=== PATIENT | female | born 1970 | race Caucasian/White ===

== ENCOUNTER 2016-05-09 12:59 | Outpatient (CLI) | payer BC ==
[~2016-05-09] VITALS: Ht 175.3 cm; Wt 97.0 kg
[~2016-05-09 12:59] MED LIST: /AMLO25TA; ACET50TAOT PO; ACET65TA; ALBU2TAB; ALBUTEROL INHALATION; ALKA SELTZER PLUS; ALTA5CAP OR; ALTA5CAP3 PO; AMLO5TAB2 PO; AMO500 PO; ATENOLOL50 PO; AZUL500T; B12-1CHW PO; BENA25CA2 PO; BENT20TA PO; BIAXIN500 PO; BIOT50004 PO; CALCTAB93; CARA1TAB2 PO; CEFTIN500 PO; CHLORTHALID PO; CIPR500T89 PO; CIPRO500 PO; DIFL150T PO; EPIPENAD INJECTION; FERR325T; FLAG500T PO; GUAIPOW; HCTZ25 PO; HUMI40KI SC; HUMI40KI2 SC; HUMIRA INJ; HYOS0.378 PO; IBUP80TA PO; IBUPPOW25; IMODIUM; K-TA10TA; LASI40TA PO; LASIX40 PO; LEVA500T PO; LEVA750T; LIALDA PO; LIDO1OIN2 TOP; LOPR50TA; LUNESTA2 PO; METFORM500 PO; METO-207 PO; MICR10CA PO; MIRA33504 PO; MOTRIN600 PO; MULT1CHW21 PO; MULTIVIT; NEBTUBING; NEBUMIS2; NIFE15CA PO; NORV2TAB PO; NORVASC5 PO; OMEP20CA3 PO; OMEP20TA7 PO; PERC5TAB6 PO; PRED10TA PO; PRED10TA2; PRED10TA2 PO; PRED1TA OR; PRED20TA; PRED20TA PO; PRIL20CA; PROBCAP14 PO; PROT1TAB2 PO; PROV90AE; RAMI5CA PO; RELPAX PO; SKELAXIN40 PO; SKELAXIN8 PO; THERGRAN; TOPR50TA PO; TOPROLXL50 PO; TUSSIONEX PO; TYL325 PO; TYLE325T5 PO; TYLE500T53; ULTR50TA PO; VITA-193 PO; VITA200016 PO; VITA50003 PO; VITAMIN C; VITAMIN D; VITAMIN D50000 UNT; VITMTA PO; WELLTAB40 PO; XOPENEX63 NEB; ZANT300T PO; ZESTRIL20 PO; ZITHROZPAK PO; ZOFR20TA PO; ZOMIG2.5 PO; humira; levsin; lialda; mesalamine; pred; prednisone PO
[2016-05-09] MEDS ORDERED: VEDOLIZUMAB 300 MG in NS 250 ML IV ONE (13:00)
== END 2016-05-09 14:20 | disposition home or self-care (01) ==
LOC: M INFU 12:59
PROVIDERS: ATTEND Internal Medicine Gastroenterology
DX: K50.90 Crohn's disease, unspecified, without complications (principal)
CPT/HCPCS: 96413; J3380

== ENCOUNTER → 2016-05-16 | Outpatient (REF) | payer BC | END | disposition home or self-care (01) | LOC: M LAB REF 12:24 | PROVIDERS: ATTEND Physician Assistant Medical | DX: A04.7 Enterocolitis due to Clostridium difficile (principal) ==

== ENCOUNTER → 2016-05-16 | Outpatient (REF) | payer BC ==
[2016-05-16 12:40] LABS: ANION GAP 9 MEQ/L (8-16); BLOOD UREA NITROGEN 13 MG/DL (7-18); CALCIUM LEVEL 8.8 MG/DL (8.5-10.1); CARBON DIOXIDE LEVEL 25 MEQ/L (21-32); CHLORIDE LEVEL 108 MEQ/L (98-107); CREATININE FOR GFR 0.83 MG/DL (0.55-1.02); FREE T4 0.87 NG/DL (0.76-1.46); GLOMERULAR FILTRATION RATE > 60.0 (>58); GLUCOSE, FASTING 81 MG/DL (70-105); MAGNESIUM LEVEL 2.4 MG/DL (1.8-2.4); POTASSIUM SERUM 4.5 MEQ/L (3.5-5.1); SODIUM LEVEL 142 MEQ/L (136-145)
[2016-05-16 12:41] LABS: FOLATE > 24.0 NG/ML; VITAMIN B12 LEVEL 1545 PG/ML
== END | disposition home or self-care (01) ==
LOC: M SFHCPLAZ 09:07
PROVIDERS: ATTEND Nurse Practitioner Family
DX: F32.9 Major depressive disorder, single episode, unspecified (principal); I10 Essential (primary) hypertension; E55.9 Vitamin D deficiency, unspecified; K21.9 Gastro-esophageal reflux disease without esophagitis

== ENCOUNTER → 2016-05-21 | Outpatient (CLI) | payer BC ==
[2016-05-21 13:29] LABS: BASO # 0.1 K/mm3 (0.0-0.2); BASO % 0.9 % (0.0-1.0); EOS # 0.2 K/mm3 (0.0-0.50); EOS % 2.9 % (0.0-3.0); LARGE UNSTAINED CELL # 0.2 K/mm3 (0.0-0.4); LARGE UNSTAINED CELL % 2.5 % (0.0-4.0); LYMPH # 1.4 K/mm3 (1.5-4.5); MEAN CORPUSCULAR HEMOGLOBIN 22.3 pg (27.0-33.0); MEAN CORPUSCULAR HGB CONC 31.1 g/dl (32.0-36.5); MEAN CORPUSCULAR VOLUME 71.6 fl (80.0-96.0); MONO # 0.4 K/mm3 (0.0-0.8); MONO % 5.1 % (0.0-5.0); NEUTROPHILS # 5.2 K/mm3 (1.8-7.7); NEUTROPHILS % 69.7 % (36.0-66.0); PLATELET COUNT, AUTOMATED 335 k/mm3 (150-450); RED CELL DISTRIBUTION WIDTH 15.1 % (11.5-14.5); WHITE BLOOD COUNT 7.4 K/mm3 (4.0-10.0)
== END | disposition home or self-care (01) ==
LOC: M LAB 12:18
PROVIDERS: ATTEND Physician Assistant Medical
DX: D64.9 Anemia, unspecified (principal)

== ENCOUNTER → 2016-05-23 | Outpatient (CLI) | payer BC ==
[~2016-05-23] VITALS: Ht 175.3 cm; Wt 108.9 kg
[~2016-05-23] MED LIST changes: +FECAL MICROBIOTA PREPARATION 30 ML BTL (J3590) XX ONE; +LIDOCAINE 2% INJ 100 MG/5 ML SDV (FOR ANES.) As Ordered ONE; +PROPOFOL 200 MG/20 ML VIAL As Ordered ONE
--- NOTE | 2016-05-23 16:13 | ROOR ---
Patient Name: Padmini Melendrez Procedure Date: 05/23/2016 3:33 PM Date of : 1970 Age: 45 Room: [facility] Gender: Female Note Status: Finalized Procedure: Upper GI endoscopy Indications: Heartburn, inflammatory bowel disease with colonic stricturing on Biologic therapy- She has C difficile colitis. Failed Flagyl and vancomycin. dificid not covered. Pt for stool transplant/CDAD via duodenum Providers: Shane MCELROY MD Referring MD: Temi Angel NP Requesting Provider: Medicines: Monitored Anesthesia Care Complications: No immediate complications. Procedure: Pre-Anesthesia Assessment: - The heart rate, respiratory rate, oxygen saturations, blood pressure, adequacy of pulmonary ventilation, and response to care were monitored throughout the procedure. The Endoscope was introduced through the mouth, and advanced to the third part of duodenum. The upper GI endoscopy was accomplished without difficulty. The patient tolerated the procedure well. Findings: The examined esophagus was normal. A medium-sized hiatal hernia was present. The entire examined stomach was normal. The examined duodenum was normal. Successful Stool Transplantation performed. Impression: - Normal esophagus. - Medium-sized hiatal hernia. - Normal stomach. - Normal examined duodenum. - No specimens collected. - Successful Stool Transplantation performed into second/third portion of duodenum. Recommendation: - Stop/do NOT restart any antibiotics you were on for C difficile colitis. Avoid use of any future antibiotics if at all possible. If need for antibiotic therapy arises in the future, please notify your primary care physician for review/discussion. - Return to my office in 1 month. Shane Mcelroy MD Shane MCELROY MD 05/23/2016 4:13:21 PM This report has been signed electronically. Number of Addenda: 0 Note Initiated On: 05/23/2016 3:33 PM Estimated Blood Loss: Estimated blood loss: none.
[2016-05-23 16:45] VITALS: BP 116/71
== END ==
LOC: M OPP 13:10
PROVIDERS: ATTEND Internal Medicine Gastroenterology
DX: R12 Heartburn (principal); K51.90 Ulcerative colitis, unspecified, without complications; A04.7 Enterocolitis due to Clostridium difficile; K44.9 Diaphragmatic hernia without obstruction or gangrene; I10 Essential (primary) hypertension; G93.0 Cerebral cysts; Z79.899 Other long term (current) drug therapy; Z88.0 Allergy status to penicillin; Z88.1 Allergy status to other antibiotic agents; Z88.5 Allergy status to narcotic agent; Z91.030 Bee allergy status; Z91.018 Allergy to other foods

== ENCOUNTER 2016-06-06 13:44 | Outpatient (CLI) | payer BC ==
[~2016-06-06] VITALS: Ht 175.3 cm; Wt 104.7 kg
[~2016-06-06 13:44] MED LIST changes: -FECAL MICROBIOTA PREPARATION 30 ML BTL (J3590) XX ONE; -LIDOCAINE 2% INJ 100 MG/5 ML SDV (FOR ANES.) As Ordered ONE; -PROPOFOL 200 MG/20 ML VIAL As Ordered ONE; +VEDOLIZUMAB 300 MG in NS 250 ML IV ONE
== END 2016-06-06 14:45 | disposition home or self-care (01) ==
LOC: M INFU 13:44
PROVIDERS: ATTEND Internal Medicine Gastroenterology
DX: K50.90 Crohn's disease, unspecified, without complications (principal)
CPT/HCPCS: 96413; J3380

== ENCOUNTER → 2016-06-11 | Outpatient (CLI) | payer BC ==
[~2016-06-11] MED LIST changes: -VEDOLIZUMAB 300 MG in NS 250 ML IV ONE
== END ==
LOC: M LAB 10:50
PROVIDERS: ATTEND Physician Assistant Medical
DX: R19.7 Diarrhea, unspecified (principal)

== ENCOUNTER → 2016-07-04 | Outpatient (CLI) | payer BC ==
[~2016-07-04] VITALS: Ht 175.3 cm; Wt 111.1 kg
[~2016-07-04] MED LIST changes: +ENTY1INJ IV; +PROPOFOL 200 MG/20 ML VIAL As Ordered ONE
[2016-07-04] MEDS: NS 1,000 ML IV SCH (09:35)
[2016-07-04 11:10] VITALS: BP 143/93
--- NOTE | 2016-07-04 11:21 | ROOR ---
Patient Name: Padmini Melendrez Procedure Date: 07/04/2016 10:29 AM Date of : 1970 Age: 45 Room: [facility] Gender: Female Note Status: Finalized Procedure: Colonoscopy Indications: Suspected Crohn's disease of the colon, Disease activity assessment of Crohn's disease of the colon, Assess therapeutic response to therapy of Crohn's disease of the colon. (previously thought to have Ulcerative colitis. recent development of strictures in colon prompted change in diagnosis to crohns disease and change from remicade to entyvio- procedure done to assess results of this change) Providers: Shane MCELROY MD Referring MD: Temi Angel NP Requesting Provider: Medicines: Monitored Anesthesia Care Complications: No immediate complications. Procedure: Pre-Anesthesia Assessment: - The heart rate, respiratory rate, oxygen saturations, blood pressure, adequacy of pulmonary ventilation, and response to care were monitored throughout the procedure. The Colonoscope was introduced through the anus with the intention of advancing to the cecum. The scope was advanced to the descending colon before the procedure was aborted. Medications were given. The colonoscopy was performed with difficulty due to bowel stenosis. The patient tolerated the procedure well. The quality of the bowel preparation was good. Findings: The perianal and digital rectal examinations were normal. A severe stenosis was found in the sigmoid colon and in the distal descending colon. Biopsies were taken with a cold forceps for histology. Scattered pseudopolyps were found in the sigmoid colon. Inflammation was found as medium patches surrounded by normal mucosa in the rectum, in the sigmoid colon and in the descending colon. When compared to previous examinations, the findings are improved. Biopsies were taken with a cold forceps for histology. Impression: - INCOMPLETE colonoscopy to descending colon--at 70 cm. due to severe stricture. Unable to pass. - Two strictures in sigmoid colon and in the distal descending colon- I am able to pass the sigmoid stenoses, these appear IMPROVED. however the stricture in the descending colon is too tight to pass. Biopsied. - Patchy Inflammation and pseudopolyps are found in the rectum, in the sigmoid colon and in the descending colon. The findings are improved compared to previous examinations. Biopsied. (- Unlike previous exams years ago, the inflammation is patchy and surrounded by apparent normal mucosa. On this exam the visual is more consistent with Crohn's disease.) Recommendation: - Continue present medications. (Entyvio) - Repeat colonoscopy at appointment to be scheduled for surveillance. - Return to GI office in 2 months. Shane Mcelroy MD Shane MCELROY MD 07/04/2016 11:21:05 AM This report has been signed electronically. Number of Addenda: 0 Note Initiated On: 07/04/2016 10:29 AM Estimated Blood Loss: Estimated blood loss: none.
== END ==
LOC: M OPP 09:13
PROVIDERS: ATTEND Internal Medicine Gastroenterology
DX: K50.112 Crohn's disease of large intestine with intestinal obstruction (principal); I10 Essential (primary) hypertension; Z86.19 Personal history of other infectious and parasitic diseases; Z79.899 Other long term (current) drug therapy; Z88.0 Allergy status to penicillin; Z91.030 Bee allergy status; Z88.5 Allergy status to narcotic agent; Z91.02 Food additives allergy status

== ENCOUNTER 2016-08-01 12:54 | Outpatient (CLI) | payer BC ==
[~2016-08-01] VITALS: Ht 175.3 cm; Wt 97.0 kg
[~2016-08-01 12:54] MED LIST changes: -PROPOFOL 200 MG/20 ML VIAL As Ordered ONE
[2016-08-01] MEDS ORDERED: VEDOLIZUMAB 300 MG in NS 250 ML IV ONE (14:00)
== END 2016-08-01 15:10 | disposition home or self-care (01) ==
LOC: M INFU 12:54
PROVIDERS: ATTEND Internal Medicine Gastroenterology
DX: K50.90 Crohn's disease, unspecified, without complications (principal)
CPT/HCPCS: 96413; J3380

== ENCOUNTER → 2016-08-09 | Outpatient (CLI) | payer BC ==
[~2016-08-09] VITALS: Ht 175.3 cm; Wt 114.3 kg
[~2016-08-09] MED LIST changes: +FECAL MICROBIOTA PREPARATION 250 ML BTL (J3590) XX ONE; +LIDOCAINE 2% INJ 100 MG/5 ML SDV (FOR ANES.) As Ordered ONE; +NS 1,000 ML IV SCH; +PROPOFOL 200 MG/20 ML VIAL As Ordered ONE
--- NOTE | 2016-08-09 16:49 | ROOR ---
Patient Name: Padmini Melendrez Procedure Date: 08/09/2016 4:29 PM Date of : 1970 Age: 45 Room: [facility] Gender: Female Note Status: Finalized Procedure: Upper GI endoscopy Indications: Therapeutic procedure, Diarrhea, recurrent Clostridium difficile colitis in pt with crohns disease with colonic strictures. failed previous antibiotic therapy for eradication, resolved after previous stool transplant 04/2016. recurrent symptoms for past 2 weeks. retesting showed positive clostridium difficile per PCR. Providers: Shane MCELROY MD Referring MD: Bennett Terry MD Requesting Provider: Medicines: Monitored Anesthesia Care Complications: No immediate complications. Procedure: Pre-Anesthesia Assessment: - The heart rate, respiratory rate, oxygen saturations, blood pressure, adequacy of pulmonary ventilation, and response to care were monitored throughout the procedure. The Endoscope was introduced through the mouth, and advanced to the fourth part of duodenum. The upper GI endoscopy was accomplished without difficulty. The patient tolerated the procedure well. Findings: The esophagus was normal. The stomach was normal. The examined duodenum was normal. An area in the fourth portion of the duodenum was successfully injected with Fecal Transplant Material. Impression: - Normal esophagus. - Normal stomach. - Normal examined duodenum. - An area at 4th portion of the duodenum successfully injected with stool transplant material. - No specimens collected. Recommendation: - Stop/do NOT restart any antibiotics you were on for C difficile colitis. Avoid use of any future antibiotics if at all possible. If need for antibiotic therapy arises in the future, please notify your primary care physician for review/discussion. - Return to my office in 1 month. Shane Mcelroy MD Shane MCELROY MD 08/09/2016 4:49:21 PM This report has been signed electronically. Number of Addenda: 0 Note Initiated On: 08/09/2016 4:29 PM Estimated Blood Loss: Estimated blood loss: none.
[2016-08-09 17:01] VITALS: BP 113/79
== END ==
LOC: M OPP 14:07
PROVIDERS: ATTEND Internal Medicine Gastroenterology
DX: A04.7 Enterocolitis due to Clostridium difficile (principal); Z86.19 Personal history of other infectious and parasitic diseases; K50.10 Crohn's disease of large intestine without complications; I10 Essential (primary) hypertension; K21.9 Gastro-esophageal reflux disease without esophagitis; D64.9 Anemia, unspecified; F32.9 Major depressive disorder, single episode, unspecified; Z91.030 Bee allergy status; Z91.02 Food additives allergy status; G43.909 Migraine, unspecified, not intractable, without status migrainosus; G93.0 Cerebral cysts; E66.9 Obesity, unspecified; Z79.899 Other long term (current) drug therapy; Z88.0 Allergy status to penicillin; Z88.5 Allergy status to narcotic agent; Z88.6 Allergy status to analgesic agent

== ENCOUNTER 2016-09-26 09:22 | Outpatient (CLI) | payer BC ==
[2016-09-26] MEDS ORDERED: VEDOLIZUMAB 300 MG in NS 250 ML IV ONE (10:00)
[2016-10-09] MEDS ORDERED: VITA200016 PO (18:08)
[2016-10-10] MEDS ORDERED: TRAZ50TA4 PO (14:57)
== END 2016-09-26 10:30 | disposition home or self-care (01) ==
LOC: M INFU 09:22
PROVIDERS: ATTEND Internal Medicine Gastroenterology
DX: K50.112 Crohn's disease of large intestine with intestinal obstruction (principal); A04.7 Enterocolitis due to Clostridium difficile; Z79.899 Other long term (current) drug therapy; I10 Essential (primary) hypertension; Z88.0 Allergy status to penicillin; Z88.1 Allergy status to other antibiotic agents; Z88.5 Allergy status to narcotic agent; Z91.018 Allergy to other foods
CPT/HCPCS: 96413; J3380

== ENCOUNTER → 2016-09-26 | Outpatient (CLI) | payer BC ==
[~2016-09-26] MED LIST changes: -FECAL MICROBIOTA PREPARATION 250 ML BTL (J3590) XX ONE; -LIDOCAINE 2% INJ 100 MG/5 ML SDV (FOR ANES.) As Ordered ONE; -NS 1,000 ML IV SCH; -PROPOFOL 200 MG/20 ML VIAL As Ordered ONE
[2016-09-26 12:18] LABS: ALBUMIN 3.1 GM/DL (3.2-5.2); ALBUMIN/GLOBULIN RATIO 0.86 (1.00-1.93); ALKALINE PHOSPHATASE 57 U/L (45-117); ALT/SGPT 12 U/L (12-78); ANION GAP 5 MEQ/L (8-16); AST/SGOT 7 U/L (15-37); BILIRUBIN,TOTAL 0.7 MG/DL (0.2-1.0); BLOOD UREA NITROGEN 10 MG/DL (7-18); CALCIUM LEVEL 8.9 MG/DL (8.5-10.1); CARBON DIOXIDE LEVEL 30 MEQ/L (21-32); CHLORIDE LEVEL 105 MEQ/L (98-107); CREATININE FOR GFR 0.76 MG/DL (0.55-1.02); GLOMERULAR FILTRATION RATE > 60.0 (>58); GLUCOSE, FASTING 89 MG/DL (70-105); POTASSIUM SERUM 4.3 MEQ/L (3.5-5.1); SODIUM LEVEL 140 MEQ/L (136-145); TOTAL PROTEIN 6.7 GM/DL (6.4-8.2)
== END ==
LOC: M LAB 10:40
PROVIDERS: ATTEND Nurse Practitioner Family
DX: I10 Essential (primary) hypertension (principal)

== ENCOUNTER → 2016-09-26 | Outpatient (REF) | payer BC | LOC: M LAB REF 15:44 | PROVIDERS: ATTEND Internal Medicine Gastroenterology | DX: A04.7 Enterocolitis due to Clostridium difficile (principal); K50.112 Crohn's disease of large intestine with intestinal obstruction ==

== ENCOUNTER → 2016-10-10 | Outpatient (CLI) | payer BC ==
[~2016-10-10] VITALS: Ht 175.3 cm; Wt 113.4 kg
[~2016-10-10] MED LIST changes: +FECAL MICROBIOTA PREPARATION 30 ML BTL (J3590) XX ONE; +LIDOCAINE 2% INJ 100 MG/5 ML SDV (FOR ANES.) As Ordered ONE; +NS 1,000 ML IV ONE; +PROPOFOL 200 MG/20 ML VIAL As Ordered ONE; +TRAZ50TA4 PO; +fentaNYL 100 MCG/2 ML INJECTION (J3010) As Ordered ONE
--- NOTE | 2016-10-10 16:07 | ROOR ---
Patient Name: Padmini Melendrez Procedure Date: 10/10/2016 3:45 PM Date of : 1970 Age: 46 Room: [facility] Gender: Female Note Status: Finalized Procedure: Upper GI endoscopy Indications: Therapeutic procedure, Heartburn, for stool transplant- recurrent Clostridium difficile colitis Providers: Shane MCELROY MD Referring MD: Temi Angel NP Requesting Provider: Medicines: Monitored Anesthesia Care Complications: No immediate complications. Procedure: Pre-Anesthesia Assessment: - The heart rate, respiratory rate, oxygen saturations, blood pressure, adequacy of pulmonary ventilation, and response to care were monitored throughout the procedure. The Endoscope was introduced through the mouth, and advanced to the second part of duodenum. The upper GI endoscopy was accomplished without difficulty. The patient tolerated the procedure well. Findings: The esophagus was normal. The stomach was normal. The examined duodenum was normal. 30 ml FMT material was instilled into distal second portion of duodenum. Impression: - Normal esophagus. - Normal stomach. - Normal examined duodenum. -30 ml FMT/stool transplant material was instilled into distal second portion of duodenum. - No specimens collected. Recommendation: - Observe patient's clinical course. Shane Mcelroy MD Shane MCELROY MD 10/10/2016 4:07:07 PM This report has been signed electronically. Number of Addenda: 0 Note Initiated On: 10/10/2016 3:45 PM Estimated Blood Loss: Estimated blood loss: none.
[2016-10-10 16:23] VITALS: BP 110/65
== END ==
LOC: M OPP 13:21
PROVIDERS: ATTEND Internal Medicine Gastroenterology
DX: R12 Heartburn (principal); A04.7 Enterocolitis due to Clostridium difficile; I10 Essential (primary) hypertension; K50.90 Crohn's disease, unspecified, without complications; K44.0 Diaphragmatic hernia with obstruction, without gangrene; D64.9 Anemia, unspecified; Z88.0 Allergy status to penicillin; Z88.6 Allergy status to analgesic agent; Z88.8 Allergy status to other drugs, medicaments and biological substances; Z91.030 Bee allergy status; Z79.899 Other long term (current) drug therapy
CPT/HCPCS: 43235; J3010

== ENCOUNTER → 2016-11-04 | Outpatient (REF) | payer BC ==
[~2016-11-04] MED LIST changes: +ALTA1CAP3 PO; -ALTA5CAP3 PO; -CARA1TAB2 PO; +CARA1TAB6 PO; +CIPR-249 PO; -CIPR500T89 PO; -FECAL MICROBIOTA PREPARATION 30 ML BTL (J3590) XX ONE; +LEVA1TAB2 PO; -LEVA500T PO; -LIDOCAINE 2% INJ 100 MG/5 ML SDV (FOR ANES.) As Ordered ONE; -METO-207 PO; +METO1TAB7 PO; -NS 1,000 ML IV ONE; +PERC5TAB12 PO; -PERC5TAB6 PO; -PROPOFOL 200 MG/20 ML VIAL As Ordered ONE; +TRAZ50TA11 PO; -TRAZ50TA4 PO; -ULTR50TA PO; +ULTR50TA8 PO; +VITA1CAP40 PO; -VITA50003 PO; -fentaNYL 100 MCG/2 ML INJECTION (J3010) As Ordered ONE
== END ==
LOC: M LAB REF 15:19
PROVIDERS: ATTEND Physician Assistant Medical
DX: R19.7 Diarrhea, unspecified (principal)

== ENCOUNTER → 2016-11-14 | Outpatient (REF) | payer BC ==
[2016-11-14 18:05] LABS: BASO # 0.1 K/mm3 (0.0-0.2); BASO % 0.8 % (0.0-1.0); EOS # 0.4 K/mm3 (0.0-0.50); EOS % 3.5 % (0.0-3.0); LARGE UNSTAINED CELL # 0.2 K/mm3 (0.0-0.4); LYMPH # 2.1 K/mm3 (1.5-4.5); LYMPH % 17.6 % (24.0-44.0); MEAN CORPUSCULAR HEMOGLOBIN 23.2 pg (27.0-33.0); MEAN CORPUSCULAR HGB CONC 31.1 g/dl (32.0-36.5); MEAN CORPUSCULAR VOLUME 74.7 fl (80.0-96.0); MONO # 0.7 K/mm3 (0.0-0.8); MONO % 6.4 % (0.0-5.0); NEUTROPHILS # 7.4 K/mm3 (1.8-7.7); NEUTROPHILS % 69.8 % (36.0-66.0); PLATELET COUNT, AUTOMATED 450 k/mm3 (150-450); RED CELL DISTRIBUTION WIDTH 15.8 % (11.5-14.5); WHITE BLOOD COUNT 10.6 K/mm3 (4.0-10.0)
[2016-11-14 18:18] LABS: ALBUMIN 3.3 GM/DL (3.2-5.2); ALBUMIN/GLOBULIN RATIO 0.77 (1.00-1.93); ALKALINE PHOSPHATASE 61 U/L (45-117); ALT/SGPT 16 U/L (12-78); ANION GAP 6 MEQ/L (8-16); AST/SGOT 5 U/L (15-37); BILIRUBIN,TOTAL 0.6 MG/DL (0.2-1.0); BLOOD UREA NITROGEN 11 MG/DL (7-18); CARBON DIOXIDE LEVEL 27 MEQ/L (21-32); CHLORIDE LEVEL 106 MEQ/L (98-107); CREATININE FOR GFR 0.82 MG/DL (0.55-1.02); GLOMERULAR FILTRATION RATE > 60.0 (>58); GLUCOSE, FASTING 80 MG/DL (70-105); POTASSIUM SERUM 4.5 MEQ/L (3.5-5.1); SODIUM LEVEL 139 MEQ/L (136-145); TOTAL PROTEIN 7.6 GM/DL (6.4-8.2)
[2016-11-14 18:45] LABS: ERYTHROCYTE SEDIMENTATION RATE 57 mm/hr (0-20)
== END ==
LOC: M SFHCPLAZ 12:45
PROVIDERS: ATTEND Internal Medicine Infectious Disease
DX: A04.7 Enterocolitis due to Clostridium difficile (principal); M25.50 Pain in unspecified joint

== ENCOUNTER 2016-11-22 15:07 | Outpatient (CLI) | payer BC ==
[~2016-11-22] VITALS: Ht 177.8 cm; Wt 97.0 kg
[2016-11-22] MEDS ORDERED: VEDOLIZUMAB 300 MG in NS 250 ML IV ONE (15:15)
== END 2016-11-22 16:30 | disposition home or self-care (01) ==
LOC: M INFU 15:07
PROVIDERS: ATTEND Internal Medicine Gastroenterology
DX: K50.00 Crohn's disease of small intestine without complications (principal); D64.9 Anemia, unspecified; I10 Essential (primary) hypertension; E78.00 Pure hypercholesterolemia, unspecified; M54.2 Cervicalgia; Z79.899 Other long term (current) drug therapy; Z88.1 Allergy status to other antibiotic agents; Z91.018 Allergy to other foods; Z91.030 Bee allergy status
CPT/HCPCS: 96413; J3380

== ENCOUNTER → 2017-01-06 | Outpatient (REF) | payer BC | LOC: M SFHCPLAZ 11:21 | PROVIDERS: ATTEND Internal Medicine Infectious Disease | DX: A04.7 Enterocolitis due to Clostridium difficile (principal) ==

== ENCOUNTER 2017-01-16 14:41 | Outpatient (CLI) | payer BC ==
[~2017-01-16] VITALS: Ht 175.3 cm; Wt 97.0 kg
[2017-01-16] MEDS ORDERED: VEDOLIZUMAB 300 MG in NS 250 ML IV ONE (15:00)
== END 2017-01-16 15:40 | disposition home or self-care (01) ==
LOC: M INFU 14:41
PROVIDERS: ATTEND Internal Medicine Gastroenterology
DX: K50.00 Crohn's disease of small intestine without complications (principal); I10 Essential (primary) hypertension; E78.00 Pure hypercholesterolemia, unspecified; I49.9 Cardiac arrhythmia, unspecified; D64.9 Anemia, unspecified; Z86.79 Personal history of other diseases of the circulatory system; Z86.59 Personal history of other mental and behavioral disorders; Z91.030 Bee allergy status; Z88.0 Allergy status to penicillin; Z91.010 Allergy to peanuts; Z79.899 Other long term (current) drug therapy
CPT/HCPCS: 96413; J3380

== ENCOUNTER → 2017-02-06 | Outpatient (REF) | payer BC ==
[2017-02-06 18:56] LABS: WHITE BLOOD COUNT 8.8 10^3/uL (4.0-10.0)
[2017-02-06 18:57] LABS: BASO # 0.1 10^3/uL (0.0-0.2); EOS # 0.4 10^3/uL (0.0-0.50); EOS % 4.1 % (0.0-3.0); IMMATURE GRANULOCYTE % 0.6 % (0-0); LYMPH # 1.8 10^3/uL (1.5-4.5); LYMPH % 20.4 % (24.0-44.0); MEAN CORPUSCULAR HEMOGLOBIN 22.8 pg (27.0-33.0); MEAN CORPUSCULAR HGB CONC 30.1 g/dl (32.0-36.5); MEAN CORPUSCULAR VOLUME 75.8 fl (80.0-96.0); MONO # 0.8 10^3/uL (0.0-0.8); MONO % 8.5 % (0.0-5.0); NEUTROPHILS # 5.8 10^3/uL (1.8-7.7); NEUTROPHILS % 65.4 % (36.0-66.0); PLATELET COUNT, AUTOMATED 360 10^3/uL (150-450); RED CELL DISTRIBUTION WIDTH 16.6 % (11.5-14.5)
[2017-02-06 20:36] LABS: FREE T4 0.89 NG/DL (0.76-1.46)
== END ==
LOC: M SFHCPLAZ 15:40
PROVIDERS: ATTEND Nurse Practitioner Family
DX: R63.5 Abnormal weight gain (principal); E55.9 Vitamin D deficiency, unspecified; K05.10 Chronic gingivitis, plaque induced

== ENCOUNTER 2017-03-19 14:07 | Outpatient (CLI) | payer BC ==
[~2017-03-19] VITALS: Ht 175.3 cm; Wt 97.0 kg
[~2017-03-19 14:07] MED LIST changes: +VEDOLIZUMAB 300 MG in NS 250 ML IV ONE
== END 2017-03-19 15:05 | disposition home or self-care (01) ==
LOC: M INFU 14:07
PROVIDERS: ATTEND Internal Medicine Gastroenterology
DX: K50.90 Crohn's disease, unspecified, without complications (principal); Z88.0 Allergy status to penicillin; Z91.018 Allergy to other foods; Z91.030 Bee allergy status; Z88.5 Allergy status to narcotic agent; Z88.3 Allergy status to other anti-infective agents; Z79.899 Other long term (current) drug therapy
CPT/HCPCS: 96413; J3380

== ENCOUNTER 2017-04-22 13:11 | Emergency (ER) | payer BC ==
[2017-04-22 15:37] LABS: BASO # 0.1 10^3/uL (0.0-0.2); BASO % 0.3 % (0.0-1.0); EOS # 0.1 10^3/uL (0.0-0.50); EOS % 0.6 % (0.0-3.0); IMMATURE GRANULOCYTE # 0.1 10^3/uL (0-0); IMMATURE GRANULOCYTE % 0.4 % (0-0); LYMPH % 4.8 % (24.0-44.0); MEAN CORPUSCULAR HEMOGLOBIN 23.9 pg (27.0-33.0); MEAN CORPUSCULAR VOLUME 77.1 fl (80.0-96.0); MONO # 1.2 10^3/uL (0.0-0.8); MONO % 5.8 % (0.0-5.0); NEUTROPHILS # 18.5 10^3/uL (1.8-7.7); NEUTROPHILS % 88.1 % (36.0-66.0); PLATELET COUNT, AUTOMATED 323 10^3/uL (150-450); RED CELL DISTRIBUTION WIDTH 16.4 % (11.5-14.5)
[2017-04-22 15:43] LABS: KETONE, URINE AUTO RFX NEGATIVE (NEGATIVE); LEUKOCYTE ESTERASE UR AUTO RFX NEGATIVE (NEGATIVE); MUCUS, URINE RFX SMALL (NEGATIVE); NITRITE, URINE AUTO RFX NEGATIVE (NEGATIVE); RBC, URINE AUTO RFX 3 /HPF (0-3); SPECIFIC GRAVITY UR AUTO RFX 1.019 (1.002-1.035); SQUAM EPITHELIAL CELL UR AURFX 1 /HPF (0-6); WBC, URINE AUTO RFX 2 /HPF (0-3)
[2017-04-22 16:03] LABS: ALBUMIN 3.6 GM/DL (3.2-5.2); ALBUMIN/GLOBULIN RATIO 0.95 (1.00-1.93); ALKALINE PHOSPHATASE 69 U/L (45-117); ALT/SGPT 15 U/L (12-78); AMYLASE 26 U/L (25-115); ANION GAP 7 MEQ/L (8-16); AST/SGOT 17 U/L (7-37); BILIRUBIN,DIRECT 0.2 MG/DL (0.0-0.2); BILIRUBIN,TOTAL 0.9 MG/DL (0.2-1.0); BLOOD UREA NITROGEN 11 MG/DL (7-18); CALCIUM LEVEL 8.6 MG/DL (8.5-10.1); CARBON DIOXIDE LEVEL 29 MEQ/L (21-32); CHLORIDE LEVEL 104 MEQ/L (98-107); CREATININE FOR GFR 0.72 MG/DL (0.55-1.02); GLOMERULAR FILTRATION RATE > 60.0 (>58); GLUCOSE, FASTING 104 MG/DL (70-105); SODIUM LEVEL 140 MEQ/L (136-145); TOTAL PROTEIN 7.4 GM/DL (6.4-8.2)
[2017-04-22] MEDS ORDERED: ISOVUE-370 76% 100ML VIAL (Q9967) As Ordered (16:09)
[2017-04-22] MEDS: ONDANSETRON 4MG/2ML VIAL (J2405) IV (16:16)
[2017-04-22] MEDS: MORPHINE 2 MG/ML 1ML SYRINGE IV (16:17)
[2017-04-22 16:51] LABS: LACTIC ACID SEPSIS PROTOCOL 1.2 MMOL/L (0.4-2.0)
[2017-04-22] MEDS: CIPROFLOXACIN 400 MG in APPROPRIATE DILUENT 1 EA IV (17:42)
[2017-04-22] MEDS: metroNIDAZOLE 750 MG in APPROPRIATE DILUENT 1 EA IV (18:48)
== END 2017-04-22 19:42 | disposition home or self-care (01) ==
LOC: M ED 13:11
DX: R10.9 Unspecified abdominal pain (principal); K52.9 Noninfective gastroenteritis and colitis, unspecified; K50.90 Crohn's disease, unspecified, without complications; Z79.51 Long term (current) use of inhaled steroids; Z79.899 Other long term (current) drug therapy; Z88.0 Allergy status to penicillin; Z88.8 Allergy status to other drugs, medicaments and biological substances; Z91.02 Food additives allergy status; Z91.030 Bee allergy status; E73.9 Lactose intolerance, unspecified; Z87.19 Personal history of other diseases of the digestive system; Z87.42 Personal history of other diseases of the female genital tract; Z82.49 Family history of ischemic heart disease and other diseases of the circulatory system; Z83.3 Family history of diabetes mellitus; Z80.1 Family history of malignant neoplasm of trachea, bronchus and lung
CPT/HCPCS: J2405

== ENCOUNTER → 2017-05-15 | Outpatient (CLI) | payer BC ==
[~2017-05-15] MED LIST changes: -/AMLO25TA; -ACET50TAOT PO; -ACET65TA; -ALBU2TAB; -ALBUTEROL INHALATION; -ALKA SELTZER PLUS; -ALTA1CAP3 PO; -ALTA5CAP OR; -AMLO5TAB2 PO; -AMO500 PO; -ATENOLOL50 PO; -AZUL500T; -B12-1CHW PO; -BENA25CA2 PO; -BENT20TA PO; -BIAXIN500 PO; -BIOT50004 PO; -CALCTAB93; -CARA1TAB6 PO; -CEFTIN500 PO; -CHLORTHALID PO; -CIPR-249 PO; -CIPRO500 PO; -DIFL150T PO; -ENTY1INJ IV; -EPIPENAD INJECTION; -FERR325T; -FLAG500T PO; +GLUCAGON FOR INJ 1 MG VIAL (J1610) As Ordered; -GUAIPOW; -HCTZ25 PO; -HUMI40KI SC; -HUMI40KI2 SC; -HUMIRA INJ; -HYOS0.378 PO; -IBUP80TA PO; -IBUPPOW25; -IMODIUM; +ISOVUE-370 76% 100ML VIAL (Q9967) As Ordered; -K-TA10TA; -LASI40TA PO; -LASIX40 PO; -LEVA1TAB2 PO; -LEVA750T; -LIALDA PO; -LIDO1OIN2 TOP; -LOPR50TA; -LUNESTA2 PO; -METFORM500 PO; -METO1TAB7 PO; -MICR10CA PO; -MIRA33504 PO; -MOTRIN600 PO; -MULT1CHW21 PO; -MULTIVIT; -NEBTUBING; -NEBUMIS2; -NIFE15CA PO; -NORV2TAB PO; -NORVASC5 PO; -OMEP20CA3 PO; -OMEP20TA7 PO; -PERC5TAB12 PO; -PRED10TA PO; -PRED10TA2; -PRED10TA2 PO; -PRED1TA OR; -PRED20TA; -PRED20TA PO; -PRIL20CA; -PROBCAP14 PO; -PROT1TAB2 PO; -PROV90AE; -RAMI5CA PO; -RELPAX PO; -SKELAXIN40 PO; -SKELAXIN8 PO; -THERGRAN; -TOPR50TA PO; -TOPROLXL50 PO; -TRAZ50TA11 PO; -TUSSIONEX PO; -TYL325 PO; -TYLE325T5 PO; -TYLE500T53; -ULTR50TA8 PO; -VEDOLIZUMAB 300 MG in NS 250 ML IV ONE; -VITA-193 PO; -VITA1CAP40 PO; -VITA200016 PO; -VITAMIN C; -VITAMIN D; -VITAMIN D50000 UNT; -VITMTA PO; +VoLumen 0.1% SUSPENSION 450ML BOTTLE As Ordered; -WELLTAB40 PO; -XOPENEX63 NEB; -ZANT300T PO; -ZESTRIL20 PO; -ZITHROZPAK PO; -ZOFR20TA PO; -ZOMIG2.5 PO; -humira; -levsin; -lialda; -mesalamine; -pred; -prednisone PO
== END ==
LOC: M RAD 09:49
DX: K50.112 Crohn's disease of large intestine with intestinal obstruction (principal); N13.30 Unspecified hydronephrosis
CPT/HCPCS: Q9967

== ENCOUNTER 2017-05-22 10:01 | Outpatient (CLI) | payer BC ==
[2017-05-22] MEDS: VEDOLIZUMAB 300 MG in NS 250 ML IV (10:57)
[2017-05-22 11:04] LABS: BASO # 0.1 10^3/uL (0.0-0.2); BASO % 1.4 % (0.0-1.0); EOS # 0.5 10^3/uL (0.0-0.50); EOS % 7.1 % (0.0-3.0); HEMATOCRIT 37.2 % (36.0-47.0); HEMOGLOBIN 11.5 g/dl (12.0-16.0); IMMATURE GRANULOCYTE % 0.3 % (0-0); LYMPH # 1.4 10^3/uL (1.5-4.5); LYMPH % 22.7 % (24.0-44.0); MEAN CORPUSCULAR HEMOGLOBIN 23.9 pg (27.0-33.0); MEAN CORPUSCULAR HGB CONC 30.9 g/dl (32.0-36.5); MEAN CORPUSCULAR VOLUME 77.2 fl (80.0-96.0); MONO # 0.6 10^3/uL (0.0-0.8); MONO % 9.2 % (0.0-5.0); NEUTROPHILS # 3.8 10^3/uL (1.8-7.7); NEUTROPHILS % 59.3 % (36.0-66.0); PLATELET COUNT, AUTOMATED 345 10^3/uL (150-450); RED BLOOD COUNT 4.82 10^6/uL (4.00-5.40); RED CELL DISTRIBUTION WIDTH 15.6 % (11.5-14.5); WHITE BLOOD COUNT 6.3 10^3/uL (4.0-10.0)
[2017-05-22 11:28] LABS: ALBUMIN 3.3 GM/DL (3.2-5.2); ALBUMIN/GLOBULIN RATIO 0.87 (1.00-1.93); ALKALINE PHOSPHATASE 62 U/L (45-117); ALT/SGPT 12 U/L (12-78); ANION GAP 8 MEQ/L (8-16); AST/SGOT 10 U/L (7-37); BILIRUBIN,TOTAL 0.7 MG/DL (0.2-1.0); BLOOD UREA NITROGEN 9 MG/DL (7-18); CALCIUM LEVEL 8.6 MG/DL (8.5-10.1); CARBON DIOXIDE LEVEL 27 MEQ/L (21-32); CHLORIDE LEVEL 107 MEQ/L (98-107); CREATININE FOR GFR 0.76 MG/DL (0.55-1.02); ERYTHROCYTE SEDIMENTATION RATE 38 mm/hr (0-20); FREE T4 0.93 NG/DL (0.76-1.46); GLOMERULAR FILTRATION RATE > 60.0 (>58); GLUCOSE, FASTING 122 MG/DL (70-100); POTASSIUM SERUM 3.9 MEQ/L (3.5-5.1); SODIUM LEVEL 142 MEQ/L (136-145); TOTAL PROTEIN 7.1 GM/DL (6.4-8.2)
== END 2017-05-22 11:30 | disposition home or self-care (01) ==
LOC: M INFU 10:01
DX: K50.112 Crohn's disease of large intestine with intestinal obstruction (principal); Z88.0 Allergy status to penicillin; Z91.018 Allergy to other foods; Z91.030 Bee allergy status; Z88.3 Allergy status to other anti-infective agents; Z91.011 Allergy to milk products; Z88.8 Allergy status to other drugs, medicaments and biological substances; Z79.899 Other long term (current) drug therapy
CPT/HCPCS: 96365

== ENCOUNTER → 2017-07-09 | Outpatient (REF) | payer BC ==
[2017-07-09 18:05] LABS: APPEARANCE, URINE CLEAR (CLEAR); BACTERIA, URINE AUTO 1+ (NEGATIVE); BILIRUBIN, URINE AUTO NEGATIVE (NEGATIVE); BLOOD, URINE BLOOD NEGATIVE (NEGATIVE); COLOR, URINE YELLOW (YELLOW); GLUCOSE, URINE (UA) AUTO NEGATIVE (NEGATIVE); KETONE, URINE AUTO NEGATIVE (NEGATIVE); LEUKOCYTE ESTERASE, URINE AUTO NEGATIVE (NEGATIVE); MUCUS, URINE SMALL (NEGATIVE); NITRITE, URINE AUTO NEGATIVE (NEGATIVE); PROTEIN, URINE AUTO NEGATIVE (NEGATIVE); RBC, URINE AUTO 2 /HPF (0-3); SPECIFIC GRAVITY URINE AUTO 1.014 (1.002-1.035); SQUAMOUS EPITHELIAL CELL UR AU 1 /HPF (0-6); UROBILINOGEN, URINE AUTO 0.2 mg/dL (0.0-2.0); WBC, URINE AUTO 1 /HPF (0-3)
== END ==
LOC: M SMT 16:46
DX: N13.30 Unspecified hydronephrosis (principal)
CPT/HCPCS: 81001

== ENCOUNTER 2017-07-17 14:53 | Outpatient (CLI) | payer BC ==
[2017-07-17] MEDS: VEDOLIZUMAB 300 MG in NS 250 ML IV (15:45)
== END 2017-07-17 16:35 | disposition home or self-care (01) ==
LOC: M INFU 14:53
DX: K50.90 Crohn's disease, unspecified, without complications (principal); Z91.02 Food additives allergy status; Z91.030 Bee allergy status; Z88.1 Allergy status to other antibiotic agents; Z79.899 Other long term (current) drug therapy
CPT/HCPCS: J3380

== ENCOUNTER → 2017-07-24 | Outpatient (CLI) | payer BC ==
[~2017-07-24] MED LIST changes: +FUROSEMIDE 20 MG/2 ML VIAL (J1940) As Ordered; -GLUCAGON FOR INJ 1 MG VIAL (J1610) As Ordered; -ISOVUE-370 76% 100ML VIAL (Q9967) As Ordered; -VoLumen 0.1% SUSPENSION 450ML BOTTLE As Ordered
== END ==
LOC: M RAD 08:42
DX: N13.30 Unspecified hydronephrosis (principal); N28.89 Other specified disorders of kidney and ureter
CPT/HCPCS: J1940

== ENCOUNTER → 2017-07-28 | Outpatient (CLI) | payer BC | LOC: M LRY 16:14 | DX: M25.571 Pain in right ankle and joints of right foot (principal); M79.671 Pain in right foot; M77.31 Calcaneal spur, right foot; M76.61 Achilles tendinitis, right leg | CPT/HCPCS: 73610 ==

== ENCOUNTER 2017-09-11 16:12 | Outpatient (CLI) | payer BC ==
[2017-09-11] MEDS: VEDOLIZUMAB 300 MG in NS 250 ML IV (16:44)
== END 2017-09-11 17:20 | disposition home or self-care (01) ==
LOC: M INFU 16:12
DX: K50.90 Crohn's disease, unspecified, without complications (principal); D25.9 Leiomyoma of uterus, unspecified; D64.9 Anemia, unspecified; K21.9 Gastro-esophageal reflux disease without esophagitis; M54.2 Cervicalgia; Z79.899 Other long term (current) drug therapy; Z88.8 Allergy status to other drugs, medicaments and biological substances; Z91.018 Allergy to other foods; Z91.030 Bee allergy status; Z90.710 Acquired absence of both cervix and uterus; Z87.19 Personal history of other diseases of the digestive system; Z87.42 Personal history of other diseases of the female genital tract
CPT/HCPCS: J3380

== ENCOUNTER 2017-11-06 14:39 | Outpatient (CLI) | payer BC ==
[2017-11-06] MEDS: diphenhydrAMINE 25 MG CAP PO (15:15)
[2017-11-06] MEDS: ACETAMINOPHEN TAB 650MG DOSE (2X325MG) PO (15:15)
[2017-11-06] MEDS: VEDOLIZUMAB 300 MG in NS 250 ML IV (15:26)
== END 2017-11-06 16:15 | disposition home or self-care (01) ==
LOC: M INFU 14:39
DX: K50.90 Crohn's disease, unspecified, without complications (principal); Z88.0 Allergy status to penicillin; Z88.5 Allergy status to narcotic agent; Z88.3 Allergy status to other anti-infective agents; Z91.011 Allergy to milk products; Z91.02 Food additives allergy status; Z91.030 Bee allergy status; Z79.899 Other long term (current) drug therapy
CPT/HCPCS: J3380

== ENCOUNTER → 2017-11-13 | Outpatient (CLI) | payer BC ==
[2017-11-13 11:49] LABS: HEMOGLOBIN 11.5 g/dl (12.0-15.5); MEAN CORPUSCULAR HEMOGLOBIN 24.9 pg (27.0-33.0); MEAN CORPUSCULAR HGB CONC 31.1 g/dl (32.0-36.5); MEAN CORPUSCULAR VOLUME 80.3 fl (80.0-96.0); PLATELET COUNT, AUTOMATED 322 10^3/uL (150-450); RED BLOOD COUNT 4.61 10^6/uL (4.00-5.40); RED CELL DISTRIBUTION WIDTH 14.6 % (11.5-14.5)
[2017-11-13 11:51] LABS: APPEARANCE, URINE HAZY (CLEAR); BACTERIA, URINE AUTO 2+ (NEGATIVE); BILIRUBIN, URINE AUTO NEGATIVE (NEGATIVE); BLOOD, URINE BLOOD NEGATIVE (NEGATIVE); COLOR, URINE YELLOW (YELLOW); GLUCOSE, URINE (UA) AUTO NEGATIVE (NEGATIVE); KETONE, URINE AUTO NEGATIVE (NEGATIVE); LEUKOCYTE ESTERASE, URINE AUTO NEGATIVE (NEGATIVE); NITRITE, URINE AUTO NEGATIVE (NEGATIVE); PROTEIN, URINE AUTO NEGATIVE (NEGATIVE); RBC, URINE AUTO 0 /HPF (0-3); SPECIFIC GRAVITY URINE AUTO 1.005 (1.002-1.035); SQUAMOUS EPITHELIAL CELL UR AU 1 /HPF (0-6); UROBILINOGEN, URINE AUTO 0.2 mg/dL (0.0-2.0); WBC, URINE AUTO 1 /HPF (0-3)
[2017-11-13 12:34] LABS: ANION GAP 8 MEQ/L (8-16); BLOOD UREA NITROGEN 8 MG/DL (7-18); CALCIUM LEVEL 8.4 MG/DL (8.5-10.1); CARBON DIOXIDE LEVEL 29 MEQ/L (21-32); CHLORIDE LEVEL 108 MEQ/L (98-107); CREATININE FOR GFR 0.69 MG/DL (0.55-1.30); GLOMERULAR FILTRATION RATE > 60.0 (>58); GLUCOSE, FASTING 79 MG/DL (70-100); POTASSIUM SERUM 3.6 MEQ/L (3.5-5.1); SODIUM LEVEL 145 MEQ/L (136-145)
== END ==
LOC: M LAB 11:13
DX: N13.5 Crossing vessel and stricture of ureter without hydronephrosis (principal)
CPT/HCPCS: 80048

== ENCOUNTER → 2017-11-13 | Outpatient (CLI) | payer BC ==
[2017-11-13 11:52] LABS: BASO # 0.1 10^3/uL (0.0-0.2); BASO % 0.9 % (0.0-1.0); EOS # 0.4 10^3/uL (0.0-0.50); EOS % 4.7 % (0.0-3.0); HEMATOCRIT 36.5 % (36.0-47.0); HEMOGLOBIN 11.3 g/dl (12.0-15.5); IMMATURE GRANULOCYTE % 0.5 % (0-3.0); LYMPH # 1.8 10^3/uL (1.5-4.5); LYMPH % 23.9 % (24.0-44.0); MEAN CORPUSCULAR HEMOGLOBIN 24.3 pg (27.0-33.0); MEAN CORPUSCULAR VOLUME 78.5 fl (80.0-96.0); MONO # 0.6 10^3/uL (0.0-0.8); MONO % 8.4 % (0.0-5.0); NEUTROPHILS # 4.7 10^3/uL (1.8-7.7); NEUTROPHILS % 61.6 % (36.0-66.0); PLATELET COUNT, AUTOMATED 331 10^3/uL (150-450); RED BLOOD COUNT 4.65 10^6/uL (4.00-5.40); RED CELL DISTRIBUTION WIDTH 14.6 % (11.5-14.5); WHITE BLOOD COUNT 7.6 10^3/uL (4.0-10.0)
[2017-11-13 12:12] LABS: ERYTHROCYTE SEDIMENTATION RATE 51 mm/hr (0-20)
[2017-11-13 12:38] LABS: ALBUMIN 3.2 GM/DL (3.2-5.2); ALBUMIN/GLOBULIN RATIO 0.86 (1.00-1.93); ALKALINE PHOSPHATASE 67 U/L (45-117); ALT/SGPT 17 U/L (12-78); ANION GAP 7 MEQ/L (8-16); AST/SGOT 9 U/L (7-37); BILIRUBIN,TOTAL 0.4 MG/DL (0.2-1.0); BLOOD UREA NITROGEN 9 MG/DL (7-18); CALCIUM LEVEL 8.5 MG/DL (8.5-10.1); CARBON DIOXIDE LEVEL 29 MEQ/L (21-32); CHLORIDE LEVEL 107 MEQ/L (98-107); CREATININE FOR GFR 0.73 MG/DL (0.55-1.30); GLOMERULAR FILTRATION RATE > 60.0 (>58); GLUCOSE, FASTING 83 MG/DL (70-100); POTASSIUM SERUM 3.6 MEQ/L (3.5-5.1); SODIUM LEVEL 143 MEQ/L (136-145); TOTAL PROTEIN 6.9 GM/DL (6.4-8.2)
== END ==
LOC: M LAB 11:17
DX: K50.112 Crohn's disease of large intestine with intestinal obstruction (principal)
CPT/HCPCS: 80053

== ENCOUNTER → 2017-11-20 | Outpatient (CLI) | payer BC ==
[~2017-11-20] MED LIST changes: -FUROSEMIDE 20 MG/2 ML VIAL (J1940) As Ordered; +ISOVUE-370 76% 100ML VIAL (Q9967) As Ordered
== END ==
LOC: M RAD 08:27
DX: N13.5 Crossing vessel and stricture of ureter without hydronephrosis (principal)
CPT/HCPCS: Q9967

== ENCOUNTER 2018-01-01 16:11 | Outpatient (CLI) | payer BC ==
[2018-01-01] MEDS: VEDOLIZUMAB 300 MG in NS 250 ML IV (16:47)
== END 2018-01-01 17:45 | disposition home or self-care (01) ==
LOC: M INFU 16:11
DX: K50.90 Crohn's disease, unspecified, without complications (principal); G43.819 Other migraine, intractable, without status migrainosus; I10 Essential (primary) hypertension; A04.71 Enterocolitis due to Clostridium difficile, recurrent; M15.9 Polyosteoarthritis, unspecified; R44.0 Auditory hallucinations; Z86.39 Personal history of other endocrine, nutritional and metabolic disease; Z86.011 Personal history of benign neoplasm of the brain; Z79.899 Other long term (current) drug therapy; Z88.8 Allergy status to other drugs, medicaments and biological substances; Z91.018 Allergy to other foods
CPT/HCPCS: J3380

== ENCOUNTER → 2018-02-12 | Outpatient (CLI) | payer BC ==
[~2018-02-12] MED LIST changes: -ISOVUE-370 76% 100ML VIAL (Q9967) As Ordered; +LIQUID POLIBAR PLUS 105% w/v 1900ML BTL As Ordered
== END ==
LOC: M RAD 09:29
DX: K63.5 Polyp of colon (principal); K56.699 Other intestinal obstruction unspecified as to partial versus complete obstruction; K50.112 Crohn's disease of large intestine with intestinal obstruction
CPT/HCPCS: 74280

== ENCOUNTER 2018-02-26 07:54 | Outpatient (CLI) | payer BC ==
[2018-02-26] MEDS: diphenhydrAMINE 25 MG CAP PO (08:30)
[2018-02-26] MEDS: ACETAMINOPHEN TAB 650MG DOSE (2X325MG) PO (08:30)
[2018-02-26] MEDS: VEDOLIZUMAB 300 MG in NS 250 ML IV (08:46)
== END 2018-02-26 09:35 | disposition home or self-care (01) ==
LOC: M INFU 07:54
DX: K50.90 Crohn's disease, unspecified, without complications (principal); Z79.899 Other long term (current) drug therapy; Z88.0 Allergy status to penicillin; Z88.8 Allergy status to other drugs, medicaments and biological substances
CPT/HCPCS: J3380

== ENCOUNTER 2018-05-01 14:44 | Outpatient (CLI) | payer BC ==
[~2018-05-01] VITALS: Ht 170.2 cm; Wt 97.0 kg
[~2018-05-01 14:44] MED LIST changes: +/AMLO25TA; +ACET500T15 PO; +ACET65TA; +ALBU2TAB; +ALBUTEROL INHALATION; +ALKA SELTZER PLUS; +ALTA1CAP3 PO; +ALTA5CAP OR; +AMLO5TAB6 PO; +AMO500 PO; +ATENOLOL50 PO; +AZUL500T; +B12-1CHW PO; +BENA25CA2 PO; +BENT20TA PO; +BIAXIN500 PO; +BIOT50004 PO; +CALCTAB93; +CARA1TAB6 PO; +CEFTIN500 PO; +CHLORTHALID PO; +CIPR-249 PO; +CIPRO500 PO; +DIFL150T PO; +ENTY1INJ IV; +EPIPENAD INJECTION; +FERR325T; +FLAG500T PO; +FLUTISP; +GUAIPOW; +HCTZ25 PO; +HUMI40KI SC; +HUMI40KI2 SC; +HUMIRA INJ; +HYOS0.378 PO; +IBUP80TA PO; +IBUPPOW25; +IMODIUM; +K-TA10TA; +LASI40TA9 PO; +LASIX40 PO; +LEVA1TAB2 PO; +LEVA750T; +LIALDA PO; +LIDO1OIN2 TOP; -LIQUID POLIBAR PLUS 105% w/v 1900ML BTL As Ordered; +LOPR50TA; +LUNESTA2 PO; +METFORM500 PO; +METO1TAB7 PO; +MICR10CA PO; +MIRA33504 PO; +MOTRIN600 PO; +MULT1CHW21 PO; +MULTIVIT; +NEBTUBING; +NEBUMIS2; +NIFE15CA PO; +NORV2TAB PO; +NORVASC5 PO; +OMEP20CA3 PO; +OMEP20TA7 PO; +PERC5TAB12 PO; +PRED10TA PO; +PRED10TA2; +PRED10TA2 PO; +PRED1TA OR; +PRED20TA; +PRED20TA PO; +PRIL20CA; +PROBCAP14 PO; +PROT1TAB2 PO; +PROV90AE; +RAMI1CAP24 PO; +RELPAX PO; +SKELAXIN40 PO; +SKELAXIN8 PO; +THERGRAN; +TOPR50TA PO; +TOPROLXL50 PO; +TRAZ-160 PO; +TUSSIONEX PO; +TYL325 PO; +TYLE325T5 PO; +TYLE500T53; +ULTR50TA8 PO; +VITA-193 PO; +VITA200016 PO; +VITA50005 PO; +VITAMIN C; +VITAMIN D; +VITAMIN D50000 UNT; +VITMTA PO; +WELLTAB40 PO; +XOPENEX63 NEB; +ZANT300T9 PO; +ZESTRIL20 PO; +ZITHROZPAK PO; +ZOFR4TAB16 PO; +ZOMIG2.5 PO; +humira; +levsin; +lialda; +mesalamine; +pred; +prednisone PO
[2018-05-01] MEDS ORDERED: VEDOLIZUMAB 300 MG in NS 250 ML IV ONE (15:00)
[2018-05-01 15:04] VITALS: BP 148/78
[2018-05-01 16:00] VITALS: BP 158/88
== END 2018-05-01 16:00 | disposition home or self-care (01) ==
LOC: M INFU 14:44
PROVIDERS: ATTEND Internal Medicine Gastroenterology
DX: K50.90 Crohn's disease, unspecified, without complications (principal); Z79.899 Other long term (current) drug therapy; Z88.0 Allergy status to penicillin; Z88.8 Allergy status to other drugs, medicaments and biological substances
CPT/HCPCS: 96365; J3380

== ENCOUNTER → 2018-05-21 | Outpatient (REF) | payer BC ==
[2018-05-21 14:14] LABS: INFLUENZA A AMPLIFICATION NEGATIVE (NEGATIVE); INFLUENZA B AMPLIFICATION NEGATIVE (NEGATIVE)
== END ==
LOC: M LAB REF 12:48
PROVIDERS: ATTEND Physician Assistant
DX: J11.1 Influenza due to unidentified influenza virus with other respiratory manifestations (principal)

== ENCOUNTER 2018-06-18 06:57 | Outpatient (CLI) | payer BC ==
[~2018-06-18] VITALS: Ht 152.4 cm; Wt 97.0 kg
[2018-06-18 07:09] VITALS: BP 133/75
[2018-06-18] MEDS ORDERED: VEDOLIZUMAB 300 MG in NS 250 ML IV ONE (07:30)
[2018-06-18 09:01] VITALS: BP 131/79
== END 2018-06-18 09:15 | disposition home or self-care (01) ==
LOC: M INFU 06:57
PROVIDERS: ATTEND Internal Medicine Gastroenterology
DX: K50.90 Crohn's disease, unspecified, without complications (principal); Z88.0 Allergy status to penicillin; Z88.8 Allergy status to other drugs, medicaments and biological substances; Z91.018 Allergy to other foods; Z91.030 Bee allergy status
CPT/HCPCS: 96365; J3380

== ENCOUNTER → 2018-07-05 | Outpatient (CLI) | payer BC ==
[2018-07-05 12:55] LABS: ALBUMIN 3.1 GM/DL (3.2-5.2); ALT/SGPT 13 U/L (12-78); BILIRUBIN,TOTAL 0.6 MG/DL (0.2-1.0); BLOOD UREA NITROGEN 8 MG/DL (7-18); CALCIUM LEVEL 8.1 MG/DL (8.5-10.1); CARBON DIOXIDE LEVEL 24 MEQ/L (21-32); CHLORIDE LEVEL 106 MEQ/L (98-107); CHOLESTEROL LEVEL 166 MG/DL (<200); CREATININE FOR GFR 0.75 MG/DL (0.55-1.30); FREE T4 0.95 NG/DL (0.76-1.46); GLOMERULAR FILTRATION RATE > 60.0 (>58); GLUCOSE, FASTING 87 MG/DL (70-100); HDL CHOLESTEROL 50 MG/DL (>40); LDL CHOLESTEROL 100 MG/DL (<100); NON-HDL-C 116 MG/DL; POTASSIUM SERUM 3.7 MEQ/L (3.5-5.1); SODIUM LEVEL 139 MEQ/L (136-145); THYROID STIMULATING HORMONE 0.859 uIU/ML (0.358-3.740); TOTAL PROTEIN 6.7 GM/DL (6.4-8.2); TRIGLYCERIDES LEVEL 82 MG/DL (<150)
[2018-07-06 10:31] LABS: TOTAL 25(OH) VITAMIN D 38.1 NG/ML (30.0-100.0)
== END ==
LOC: M LAB 12:04
PROVIDERS: ATTEND Nurse Practitioner Family
DX: I10 Essential (primary) hypertension (principal); R63.5 Abnormal weight gain; E55.9 Vitamin D deficiency, unspecified

== ENCOUNTER → 2018-07-28 | Outpatient (CLI) | payer BC ==
[~2018-07-28] MED LIST changes: -/AMLO25TA; +METO-743 PO; +NORV2TAB; +PRED-351 PO; -PRED10TA PO; -TOPR50TA PO
== END ==
LOC: M LAB 14:04
PROVIDERS: ATTEND Internal Medicine Gastroenterology
DX: R19.7 Diarrhea, unspecified (principal)

== ENCOUNTER → 2018-07-29 | Outpatient (REF) | payer BC ==
[2018-07-29 21:04] LABS: CLOSTRIDIUM DIFFICILE PCR NEGATIVE (NEGATIVE)
== END ==
LOC: M LAB REF 09:16
PROVIDERS: ATTEND Internal Medicine Gastroenterology
DX: R19.7 Diarrhea, unspecified (principal); K50.112 Crohn's disease of large intestine with intestinal obstruction

== ENCOUNTER 2018-08-12 08:24 | Outpatient (CLI) | payer BC ==
[~2018-08-12] VITALS: Ht 152.4 cm; Wt 97.0 kg
[2018-08-12 08:31] VITALS: BP 142/78
[2018-08-12] MEDS ORDERED: VEDOLIZUMAB 300 MG in NS 250 ML IV ONE (09:00)
[2018-08-12 09:22] VITALS: BP 127/75
== END 2018-08-12 09:25 | disposition home or self-care (01) ==
LOC: M INFU 08:24
PROVIDERS: ATTEND Internal Medicine Gastroenterology
DX: K50.90 Crohn's disease, unspecified, without complications (principal); Z88.0 Allergy status to penicillin; Z88.1 Allergy status to other antibiotic agents; Z88.5 Allergy status to narcotic agent; Z88.8 Allergy status to other drugs, medicaments and biological substances; Z91.030 Bee allergy status
CPT/HCPCS: 96365; J3380

== ENCOUNTER 2018-10-08 08:32 | Outpatient (CLI) | payer BC ==
[~2018-10-08] VITALS: Ht 175.3 cm; Wt 131.9 kg
[~2018-10-08 08:32] MED LIST changes: -TRAZ-160 PO; +TRAZ-252 PO
[2018-10-08] MEDS ORDERED: VEDOLIZUMAB 300 MG in NS 250 ML IV ONE (09:00)
[2018-10-08 09:03] VITALS: BP 151/84
[2018-10-08 09:47] VITALS: BP 139/81
== END 2018-10-08 09:50 | disposition home or self-care (01) ==
LOC: M INFU 08:32
PROVIDERS: ATTEND Internal Medicine Gastroenterology
DX: K50.90 Crohn's disease, unspecified, without complications (principal); Z88.0 Allergy status to penicillin; Z88.1 Allergy status to other antibiotic agents; Z88.5 Allergy status to narcotic agent; Z91.030 Bee allergy status; Z91.018 Allergy to other foods
CPT/HCPCS: 96365; J3380

== ENCOUNTER → 2018-11-11 | Outpatient (CLI) | payer BC ==
[~2018-11-11] MED LIST changes: -OMEP20CA3 PO; +OMEP20CA4 PO
[2018-11-11 11:35] LABS: BASO # 0.1 10^3/uL (0.0-0.2); BASO % 0.9 % (0.0-1.0); EOS # 0.3 10^3/uL (0.0-0.50); EOS % 4.6 % (0.0-3.0); HEMATOCRIT 37.6 % (36.0-47.0); HEMOGLOBIN 11.6 g/dl (12.0-15.5); LYMPH # 1.6 10^3/uL (1.5-4.5); LYMPH % 24.3 % (24.0-44.0); MEAN CORPUSCULAR HEMOGLOBIN 24.5 pg (27.0-33.0); MEAN CORPUSCULAR HGB CONC 30.9 g/dl (32.0-36.5); MEAN CORPUSCULAR VOLUME 79.3 fl (80.0-96.0); MONO # 0.7 10^3/uL (0.0-0.8); NEUTROPHILS % 58.8 % (36.0-66.0); PLATELET COUNT, AUTOMATED 310 10^3/uL (150-450); RED BLOOD COUNT 4.74 10^6/uL (4.00-5.40); WHITE BLOOD COUNT 6.7 10^3/uL (4.0-10.0)
[2018-11-11 12:25] LABS: ALBUMIN 3.2 GM/DL (3.2-5.2); ALT/SGPT 16 U/L (12-78); BILIRUBIN,TOTAL 0.5 MG/DL (0.2-1.0); BLOOD UREA NITROGEN 11 MG/DL (7-18); C REACTIVE PROTEIN QUANTITATIV 2.28 MG/DL (0.00-0.30); CALCIUM LEVEL 8.9 MG/DL (8.5-10.1); CARBON DIOXIDE LEVEL 27 MEQ/L (21-32); CHLORIDE LEVEL 108 MEQ/L (98-107); CREATININE FOR GFR 0.72 MG/DL (0.55-1.30); GLOMERULAR FILTRATION RATE > 60.0 (>58); GLUCOSE, FASTING 100 MG/DL (70-100); SODIUM LEVEL 141 MEQ/L (136-145); TOTAL PROTEIN 7.1 GM/DL (6.4-8.2)
[2018-11-11 12:33] LABS: ERYTHROCYTE SEDIMENTATION RATE 106 mm/hr (0-20)
== END ==
LOC: M LAB 10:34
PROVIDERS: ATTEND Internal Medicine Gastroenterology
DX: K50.112 Crohn's disease of large intestine with intestinal obstruction (principal)

== ENCOUNTER 2018-12-03 08:16 | Outpatient (CLI) | payer BC ==
[~2018-12-03] VITALS: Ht 175.3 cm; Wt 128.2 kg
[2018-12-03 08:20] VITALS: BP 128/77
[2018-12-03] MEDS ORDERED: VEDOLIZUMAB 300 MG in NS 250 ML IV ONE (09:30)
[2018-12-03 10:15] VITALS: BP 128/73
== END 2018-12-03 10:15 | disposition home or self-care (01) ==
LOC: M INFU 08:16
PROVIDERS: ATTEND Internal Medicine Gastroenterology
DX: K50.90 Crohn's disease, unspecified, without complications (principal)
CPT/HCPCS: 96365; J3380

== ENCOUNTER 2019-01-08 12:20 | Day surgery (SDC) | payer BC ==
[~2019-01-08] VITALS: Ht 172.7 cm; Wt 127.5 kg
[~2019-01-08 12:20] MED LIST changes: +B-122500 PO; +CYAN500T9 PO; +DICY1CAP8 PO; +NS 1,000 ML IV ONE; -VITA-193 PO
[2019-01-08] MEDS ORDERED: PROPOFOL 200 MG/20 ML VIAL As Ordered ONE ×3 (13:57→14:33)
[2019-01-08 14:40] VITALS: BP 124/69
--- NOTE | 2019-01-08 14:51 | ROOR ---
Patient Name: Padmini Melendrez Procedure Date: 01/08/2019 2:02 PM Date of : 1970 Age: 48 Room: [facility] Gender: Female Note Status: Finalized Procedure: Colonoscopy Indications: Last colonoscopy: June 2016, Follow-up of chronic ulcerative pancolitis, Follow-up of Crohn's disease of the colon, Disease activity assessment of Crohn's disease of the colon, Assess therapeutic response to therapy of Crohn's disease of the colon Providers: Shane MCELROY MD Referring MD: Temi Angel NP Requesting Provider: Medicines: Monitored Anesthesia Care Complications: No immediate complications. Procedure: Pre-Anesthesia Assessment: - The heart rate, respiratory rate, oxygen saturations, blood pressure, adequacy of pulmonary ventilation, and response to care were monitored throughout the procedure. The Colonoscope was introduced through the anus and advanced to 10 cm into the ileum. The colonoscopy was performed without difficulty. The patient tolerated the procedure well. The quality of the bowel preparation was adequate. Findings: The perianal and digital rectal examinations were normal. Inflammation characterized by erythema, friability and pseudopolyps was found in a continuous and circumferential pattern from the rectum to the splenic flexure. This was moderate in severity, and when compared to previous examinations, the findings are improved. Biopsies were taken with a cold forceps for histology. Inflammation characterized by erythema was found in a continuous and circumferential pattern from the splenic flexure to the cecum. This was mild in severity, and when compared to previous examinations, the findings are improved. Biopsies were taken with a cold forceps for histology. The terminal ileum appeared normal. Impression: - Ulcerative pancolitis from rectum to cecum. - With mild/moderate activity with erythema, friability and numerous pseudopolyps from rectum to splenic flexure. - With minimal activity from splenic flexure to cecum. - The examined portion of the ileum (10 cm) was normal. (Notably, since her previous exam, the obstructing/impassable colonic strictures have resolved and the overall appearance of the mucosa is again back to the appearance of classic ulcerative colitis rather than crohns disease.) Recommendation: - Await pathology results. - Continue present medications. - Telephone endoscopist for pathology results in 2 weeks. Shane Mcelroy MD Shane MCELROY MD 01/08/2019 2:51:50 PM Electronically signed by Shane MCELROY MD Number of Addenda: 0 Note Initiated On: 01/08/2019 2:02 PM Estimated Blood Loss: Estimated blood loss: none.
== END 2019-01-08 15:16 | disposition home or self-care (01) ==
LOC: M OPP 12:20
PROVIDERS: ATTEND Internal Medicine Gastroenterology
DX: K51.00 Ulcerative (chronic) pancolitis without complications (principal); Z79.899 Other long term (current) drug therapy; Z88.0 Allergy status to penicillin; Z88.8 Allergy status to other drugs, medicaments and biological substances; Z91.018 Allergy to other foods; Z91.030 Bee allergy status; E73.9 Lactose intolerance, unspecified

== ENCOUNTER 2019-01-28 08:05 | Outpatient (CLI) | payer BC ==
[~2019-01-28] VITALS: Ht 175.3 cm; Wt 131.9 kg
[2019-01-28 08:20] VITALS: BP 136/91
[2019-01-28] MEDS ORDERED: VEDOLIZUMAB 300 MG in NS 250 ML IV ONE (09:00)
[2019-01-28 09:45] VITALS: BP 168/101
== END 2019-01-28 09:45 | disposition home or self-care (01) ==
LOC: M INFU 08:05
PROVIDERS: ATTEND Internal Medicine Gastroenterology
DX: K50.90 Crohn's disease, unspecified, without complications (principal); Z79.899 Other long term (current) drug therapy; Z88.0 Allergy status to penicillin; Z88.1 Allergy status to other antibiotic agents; Z88.5 Allergy status to narcotic agent; Z91.018 Allergy to other foods; Z91.030 Bee allergy status
CPT/HCPCS: 96365; J3380

== ENCOUNTER → 2019-01-28 | Outpatient (CLI) | payer BC ==
[~2019-01-28] MED LIST changes: -NS 1,000 ML IV ONE
[2019-01-28 09:13] LABS: ALBUMIN 3.3 GM/DL (3.2-5.2); ALT/SGPT 18 U/L (12-78); BILIRUBIN,TOTAL 0.5 MG/DL (0.2-1.0); BLOOD UREA NITROGEN 11 MG/DL (7-18); CALCIUM LEVEL 8.9 MG/DL (8.5-10.1); CARBON DIOXIDE LEVEL 27 MEQ/L (21-32); CHLORIDE LEVEL 106 MEQ/L (98-107); CREATININE FOR GFR 0.87 MG/DL (0.55-1.30); GLOMERULAR FILTRATION RATE > 60.0 (>58); GLUCOSE, FASTING 85 MG/DL (70-100); SODIUM LEVEL 140 MEQ/L (136-145); TOTAL PROTEIN 7.2 GM/DL (6.4-8.2)
[2019-01-28 09:23] LABS: TOTAL 25(OH) VITAMIN D 49.1 NG/ML (30.0-100.0)
== END ==
LOC: M LAB 08:01
PROVIDERS: ATTEND Nurse Practitioner Family
DX: I10 Essential (primary) hypertension (principal); E55.9 Vitamin D deficiency, unspecified

== ENCOUNTER 2019-03-24 08:14 | Outpatient (CLI) | payer BC ==
[~2019-03-24] VITALS: Ht 175.3 cm; Wt 131.9 kg
[2019-03-24 08:20] VITALS: BP 135/89
[2019-03-24] MEDS ORDERED: VEDOLIZUMAB 300 MG in NS 250 ML IV ONE (09:00)
[2019-03-24 09:40] VITALS: BP 125/88
== END 2019-03-24 10:40 | disposition home or self-care (01) ==
LOC: M INFU 08:14
PROVIDERS: ATTEND Internal Medicine Gastroenterology
DX: K50.90 Crohn's disease, unspecified, without complications (principal); Z79.899 Other long term (current) drug therapy; Z88.0 Allergy status to penicillin; Z88.1 Allergy status to other antibiotic agents; Z88.5 Allergy status to narcotic agent; Z88.8 Allergy status to other drugs, medicaments and biological substances; Z91.030 Bee allergy status
CPT/HCPCS: 96365; J3380

== ENCOUNTER 2019-05-20 08:32 | Outpatient (CLI) | payer BC ==
[~2019-05-20] VITALS: Ht 175.3 cm; Wt 131.9 kg
[~2019-05-20 08:32] MED LIST changes: +OMEP1CAP73 PO; -OMEP20CA4 PO
[2019-05-20 08:35] VITALS: BP 126/81
[2019-05-20] MEDS ORDERED: FAMO20TA PO (08:58)
[2019-05-20] MEDS ORDERED: VEDOLIZUMAB 300 MG in NS 250 ML IV ONE (09:00)
[2019-05-20] MEDS ORDERED: CEPH500C PO (09:01)
[2019-05-20 11:00] VITALS: BP 125/73
== END 2019-05-20 11:10 | disposition home or self-care (01) ==
LOC: M INFU 08:32
PROVIDERS: ATTEND Internal Medicine Gastroenterology
DX: K50.90 Crohn's disease, unspecified, without complications (principal); Z88.0 Allergy status to penicillin; Z88.1 Allergy status to other antibiotic agents; Z88.5 Allergy status to narcotic agent; Z88.8 Allergy status to other drugs, medicaments and biological substances; Z91.030 Bee allergy status; Z91.011 Allergy to milk products
CPT/HCPCS: 96365; J3380

== ENCOUNTER → 2019-06-22 | Outpatient (CLI) | payer BC ==
[~2019-06-22] MED LIST changes: +CEPH500C PO; +FAMO20TA PO
[2019-06-22 12:09] LABS: BASO # 0.1 10^3/uL (0.0-0.2); BASO % 1.1 % (0.0-1.0); EOS # 0.4 10^3/uL (0.0-0.5); EOS % 4.5 % (0.0-3.0); HEMATOCRIT 39.1 % (36.0-47.0); HEMOGLOBIN 12.1 g/dl (12.0-15.5); LYMPH # 1.7 10^3/uL (1.5-5.0); LYMPH % 20.5 % (24.0-44.0); MEAN CORPUSCULAR HEMOGLOBIN 25.3 pg (27.0-33.0); MEAN CORPUSCULAR HGB CONC 30.9 g/dl (32.0-36.5); MEAN CORPUSCULAR VOLUME 81.8 fl (80.0-96.0); MONO # 0.7 10^3/uL (0.0-0.8); MONO % 8.3 % (0.0-5.0); NEUTROPHILS # 5.4 10^3/uL (1.5-8.5); NEUTROPHILS % 65.1 % (36.0-66.0); PLATELET COUNT, AUTOMATED 304 10^3/uL (150-450); RED BLOOD COUNT 4.78 10^6/uL (4.00-5.40); WHITE BLOOD COUNT 8.3 10^3/uL (4.0-10.0)
[2019-06-22 12:27] LABS: HEMOGLOBIN A1c 6.2 %
[2019-06-22 12:30] LABS: ALT/SGPT 18 U/L (12-78); BILIRUBIN,TOTAL 0.5 MG/DL (0.2-1.0); BLOOD UREA NITROGEN 9 MG/DL (7-18); CALCIUM LEVEL 8.7 MG/DL (8.5-10.1); CARBON DIOXIDE LEVEL 28 MEQ/L (21-32); CHLORIDE LEVEL 108 MEQ/L (98-107); CHOLESTEROL LEVEL 172 MG/DL (<200); CHOLESTEROL RISK RATIO 3.909 (<5); CREATININE FOR GFR 0.73 MG/DL (0.55-1.30); FREE T4 0.91 NG/DL (0.76-1.46); GLOMERULAR FILTRATION RATE > 60.0 (>58); GLUCOSE, FASTING 85 MG/DL (70-100); HDL CHOLESTEROL 44 MG/DL (>40); LDL CHOLESTEROL 99 MG/DL (<100); NON-HDL-C 128 MG/DL; POTASSIUM SERUM 4.2 MEQ/L (3.5-5.1); RHEUMATOID FACTOR QUANT < 10.0 IU/ML (<15.0); SODIUM LEVEL 140 MEQ/L (136-145); TOTAL PROTEIN 6.5 GM/DL (6.4-8.2); TRIGLYCERIDES LEVEL 146 MG/DL (<150); VITAMIN B12 LEVEL 701 PG/ML (247-911)
[2019-06-22 12:39] LABS: ERYTHROCYTE SEDIMENTATION RATE 51 mm/hr (0-20)
== END ==
LOC: M LRY 08:39
PROVIDERS: ATTEND Psychiatry & Neurology Neurology
DX: R51 Headache (principal); E11.9 Type 2 diabetes mellitus without complications; E07.9 Disorder of thyroid, unspecified

== ENCOUNTER → 2019-07-10 | Outpatient (CLI) | payer BC | LOC: M LAB 14:25 | PROVIDERS: ATTEND Internal Medicine Gastroenterology | DX: R19.7 Diarrhea, unspecified (principal) ==

== ENCOUNTER 2019-07-15 16:19 | Outpatient (CLI) | payer BC ==
[~2019-07-15] VITALS: Ht 175.3 cm; Wt 131.9 kg
[2019-07-15 16:30] VITALS: BP 133/73
[2019-07-15] MEDS ORDERED: VEDOLIZUMAB 300 MG in NS 250 ML IV ONE (17:00)
[2019-07-15 17:18] VITALS: BP 133/91
== END 2019-07-15 17:20 | disposition home or self-care (01) ==
LOC: M INFU 16:19
PROVIDERS: ATTEND Internal Medicine Gastroenterology
DX: K51.90 Ulcerative colitis, unspecified, without complications (principal); Z88.0 Allergy status to penicillin; Z88.1 Allergy status to other antibiotic agents; Z88.5 Allergy status to narcotic agent; Z88.8 Allergy status to other drugs, medicaments and biological substances; Z91.018 Allergy to other foods; Z91.030 Bee allergy status
CPT/HCPCS: 96365; J3380

== ENCOUNTER 2019-08-20 09:34 | Emergency (ER) | payer BC ==
[~2019-08-20] VITALS: Ht 172.7 cm; Wt 129.6 kg
[2019-08-20 10:31] LABS: VENOUS HCO3 23.8 MEQ/L (23.0-27.0); VENOUS O2 SATURATION 98.3 % (60.0-80.0); VENOUS PARTIAL PRESSURE CO2 39.7 mmHg (38.0-50.0); VENOUS PARTIAL PRESSURE O2 122.1 mmHg (30.0-50.0); VENOUS PH 7.395 UNITS (7.330-7.430); VENOUS STANDARD HCO3 23.7 MEQ/L
[2019-08-20 10:32] LABS: BASO # 0.1 10^3/uL (0.0-0.2); BASO % 0.8 % (0.0-1.0); EOS # 0.3 10^3/uL (0.0-0.5); EOS % 4.5 % (0.0-3.0); HEMATOCRIT 37.6 % (36.0-47.0); HEMOGLOBIN 11.9 g/dl (12.0-15.5); LYMPH # 2.1 10^3/uL (1.5-5.0); LYMPH % 28.5 % (24.0-44.0); MEAN CORPUSCULAR HEMOGLOBIN 25.4 pg (27.0-33.0); MEAN CORPUSCULAR HGB CONC 31.6 g/dl (32.0-36.5); MEAN CORPUSCULAR VOLUME 80.3 fl (80.0-96.0); MONO # 0.7 10^3/uL (0.0-0.8); MONO % 9.5 % (0.0-5.0); NEUTROPHILS # 4.2 10^3/uL (1.5-8.5); NEUTROPHILS % 56.4 % (36.0-66.0); PLATELET COUNT, AUTOMATED 266 10^3/uL (150-450); RED BLOOD COUNT 4.68 10^6/uL (4.00-5.40); WHITE BLOOD COUNT 7.5 10^3/uL (4.0-10.0)
[2019-08-20] MEDS ORDERED: ENTY1INJ IV (10:36)
[2019-08-20] MEDS ORDERED: FAMO1TAB11 (10:36)
[2019-08-20] MEDS ORDERED: VENTAER (10:36)
[2019-08-20 11:01] LABS: ALT/SGPT 24 U/L (12-78); BILIRUBIN,DIRECT 0.1 MG/DL (0.0-0.2); BILIRUBIN,TOTAL 0.4 MG/DL (0.2-1.0); BLOOD UREA NITROGEN 11 MG/DL (7-18); CALCIUM LEVEL 8.7 MG/DL (8.5-10.1); CARBON DIOXIDE LEVEL 26 MEQ/L (21-32); CHLORIDE LEVEL 107 MEQ/L (98-107); CK-MB VALUE MASS < 1.0 NG/ML (<3.6); CPK CREATINE PHOSPHOKINASE 31 U/L (26-192); CREATININE FOR GFR 0.71 MG/DL (0.55-1.30); GLOMERULAR FILTRATION RATE > 60.0 (>58); GLUCOSE, FASTING 111 MG/DL (70-100); MB/CK RELATIVE INDEX 3.23 (< OR =4); NT-PRO BNP 28 PG/ML (<125); POTASSIUM SERUM 3.4 MEQ/L (3.5-5.1); SODIUM LEVEL 139 MEQ/L (136-145); TOTAL PROTEIN 6.7 GM/DL (6.4-8.2); TROPONIN I < 0.02 NG/ML (< 0.10)
[2019-08-20] MEDS ORDERED: predniSONE 20 MG TAB PO ONE (11:15)
[2019-08-20] MEDS ORDERED: ALBUTEROL 90 MCG/ACT 8GM HFA INHALER INH ONE (11:15)
[2019-08-20] MEDS ORDERED: PRED5PAK PO (11:44)
--- NOTE | 2019-08-20 12:05 | REP ---
CHEST: REASON: Cough and dyspnea. COMPARISON: No priors. The technique utilized in obtaining the radiograph has magnified the cardiac silhouette and accentuated the interstitial markings. FINDINGS: The superior mediastinal structures are midline. The cardiac silhouette is unremarkable in size, shape, and position. The diaphragmatic surfaces of the lungs are regular, and the costophrenic angles are clear. The pulmonary prakash are clear. The imaged osseous structures are intact. IMPRESSION: There is no acute cardiopulmonary disease. Electronically Signed by Eusebio Reyes DO 08/20/2019 02:57 P
[2019-08-20 12:16] VITALS: BP 155/91
--- NOTE | 2019-08-20 14:05 | ECGEPIP ---
[facility] - ED Test Date: 2019-08-20 Pat Name: KASH SCHAFFER Department: Room: - Gender: Female Vice President Of Operations: ab : 1970 Requested By: BOO ISLAS Order Number: [id number] Reading MD: Lulú Mendez Measurements Intervals [place] Rate: 74 P: 40 PA: 197 QRS: 11 QRSD: 108 T: 26 QT: 410 QTc: 455 Interpretive Statements SINUS RHYTHM NSTTW abnormalities DECREASED RATE 04/22/17 Electronically Signed on 08-20-2019 14:05:53 EDT by Lulú Mendez
== END 2019-08-20 12:26 | disposition home or self-care (01) ==
LOC: M ED 09:34
DX: J45.901 Unspecified asthma with (acute) exacerbation (principal); J06.9 Acute upper respiratory infection, unspecified; I10 Essential (primary) hypertension; Z91.030 Bee allergy status; Z88.0 Allergy status to penicillin; Z88.8 Allergy status to other drugs, medicaments and biological substances
CPT/HCPCS: 71045; 80048; 80076; 82550; 82553; 82803; 83880; 84443; 84484; 85025; 87486; 87581; 87633; 87798; 93005; 93041; 94640; 99285; U0002

== ENCOUNTER → 2019-08-30 | Outpatient (CLI) | payer BC ==
[~2019-08-30] MED LIST changes: +FAMO1TAB11; +PRED5PAK PO; +VENTAER
[2019-08-30 10:15] LABS: BLOOD UREA NITROGEN 12 MG/DL (7-18); CARBON DIOXIDE LEVEL 30 MEQ/L (21-32); CHLORIDE LEVEL 104 MEQ/L (98-107); CREATININE FOR GFR 0.79 MG/DL (0.55-1.30); GLOMERULAR FILTRATION RATE > 60.0 (>58); GLUCOSE, FASTING 106 MG/DL (70-100); POTASSIUM SERUM 3.6 MEQ/L (3.5-5.1); SODIUM LEVEL 141 MEQ/L (136-145)
[2019-08-30 10:29] LABS: MALB URINE SIEMENS 17.5 MG/L; MAU/CREAT RATIO 11.4 MCG/MG (0.0-30.0)
== END ==
LOC: M LAB 09:19
PROVIDERS: ATTEND Nurse Practitioner Family
DX: E55.9 Vitamin D deficiency, unspecified (principal)

== ENCOUNTER 2019-09-09 13:48 | Outpatient (CLI) | payer BC ==
[~2019-09-09] VITALS: Ht 175.3 cm; Wt 133.8 kg
[2019-09-09 13:55] VITALS: BP 122/81
[2019-09-09] MEDS ORDERED: VEDOLIZUMAB 300 MG in NS 250 ML IV ONE (14:30)
[2019-09-09 15:15] VITALS: BP 133/90
== END 2019-09-09 15:15 | disposition home or self-care (01) ==
LOC: M INFU 13:48
PROVIDERS: ATTEND Internal Medicine Gastroenterology
DX: K51.90 Ulcerative colitis, unspecified, without complications (principal); Z88.0 Allergy status to penicillin; Z88.5 Allergy status to narcotic agent; Z91.018 Allergy to other foods
CPT/HCPCS: 96365; J3380

== ENCOUNTER 2019-11-04 08:28 | Outpatient (CLI) | payer BC ==
[~2019-11-04] VITALS: Ht 175.3 cm; Wt 133.8 kg
[~2019-11-04 08:28] MED LIST changes: +AMLO1TAB24 PO; -AMLO5TAB6 PO; +CYAN500T10 PO; -CYAN500T9 PO; -FAMO1TAB11; +FAMO1TAB11 PO
[2019-11-04 08:35] VITALS: BP 126/56
[2019-11-04] MEDS ORDERED: ACETAMINOPHEN TAB 650MG DOSE (2X325MG) PO ONE (08:45)
[2019-11-04] MEDS ORDERED: VEDOLIZUMAB 300 MG in NS 250 ML IV ONE (08:45)
[2019-11-04] MEDS ORDERED: diphenhydrAMINE 25MG CAP PO ONE (08:45)
[2019-11-04 09:55] VITALS: BP 127/79
[2020-02-21] MEDS ORDERED: VANC125C3 PO (09:36)
== END 2019-11-04 09:55 | disposition home or self-care (01) ==
LOC: M INFU 08:28
PROVIDERS: ATTEND Internal Medicine Gastroenterology
DX: K51.90 Ulcerative colitis, unspecified, without complications (principal)
CPT/HCPCS: 96365; J3380

== ENCOUNTER 2019-12-30 08:41 | Outpatient (CLI) | payer BC ==
[~2019-12-30] VITALS: Ht 175.3 cm; Wt 133.9 kg
[~2019-12-30 08:41] MED LIST changes: +VEDOLIZUMAB 300 MG in NS 250 ML IV ONE
[2019-12-30 08:54] VITALS: BP 155/78
[2019-12-30 09:03] VITALS: BP 155/78
[2019-12-30 10:07] VITALS: BP 160/71
[2020-02-21] MEDS ORDERED: VANC125C3 PO (09:36)
== END 2019-12-30 10:08 | disposition home or self-care (01) ==
LOC: M INFU 08:41
PROVIDERS: ATTEND Internal Medicine Gastroenterology
DX: K51.90 Ulcerative colitis, unspecified, without complications (principal)
CPT/HCPCS: 96365; J3380

== ENCOUNTER 2020-02-16 16:29 | Emergency (ER) | payer BC ==
[~2020-02-16] VITALS: Ht 167.6 cm; Wt 124.5 kg
[~2020-02-16 16:29] MED LIST changes: -VEDOLIZUMAB 300 MG in NS 250 ML IV ONE
[2020-02-16] MEDS ORDERED: D31000TA2 PO (16:42)
[2020-02-16 17:47] LABS: BASO # 0.1 10^3/uL (0.0-0.2); BASO % 1.2 % (0.0-1.0); EOS # 0.3 10^3/uL (0.0-0.5); EOS % 4.6 % (0.0-3.0); HEMATOCRIT 39.6 % (36.0-47.0); HEMOGLOBIN 12.3 g/dl (12.0-15.5); LYMPH # 1.7 10^3/uL (1.5-5.0); LYMPH % 24.1 % (24.0-44.0); MEAN CORPUSCULAR HEMOGLOBIN 25.6 pg (27.0-33.0); MEAN CORPUSCULAR HGB CONC 31.1 g/dl (32.0-36.5); MEAN CORPUSCULAR VOLUME 82.3 fl (80.0-96.0); MONO # 0.8 10^3/uL (0.0-0.8); MONO % 11.2 % (0.0-5.0); NEUTROPHILS # 4.2 10^3/uL (1.5-8.5); NEUTROPHILS % 58.6 % (36.0-66.0); PLATELET COUNT, AUTOMATED 262 10^3/uL (150-450); RED BLOOD COUNT 4.81 10^6/uL (4.00-5.40); WHITE BLOOD COUNT 7.2 10^3/uL (4.0-10.0)
[2020-02-16 18:25] LABS: ALT/SGPT 15 U/L (12-78); BILIRUBIN,DIRECT 0.1 MG/DL (0.0-0.2); BILIRUBIN,TOTAL 0.6 MG/DL (0.2-1.0); BLOOD UREA NITROGEN 9 MG/DL (7-18); CARBON DIOXIDE LEVEL 27 MEQ/L (21-32); CHLORIDE LEVEL 107 MEQ/L (98-107); CREATININE FOR GFR 0.79 MG/DL (0.55-1.30); GLOMERULAR FILTRATION RATE > 60.0 (>58); GLUCOSE, FASTING 86 MG/DL (70-100); POTASSIUM SERUM 4.5 MEQ/L (3.5-5.1); SODIUM LEVEL 141 MEQ/L (136-145); TOTAL PROTEIN 6.7 GM/DL (6.4-8.2)
--- NOTE | 2020-02-16 19:58 | REPVR ---
PROCEDURE INFORMATION: Exam: XR Left Hip with Pelvis when Performed Exam date and time: 02/16/2020 7:34 PM Age: 49 years old Clinical indication: Hip pain; Left hip; Additional info: Trauma TECHNIQUE: Imaging protocol: XR Left hip with pelvis when performed. Views: 2 or 3 views. COMPARISON: CT ABD PELVIS W/O FOL BY TED 11/20/2017 8:52 AM FINDINGS: Bones/joints: No acute fracture or dislocation is identified. There is moderate narrowing of the hip joint with mild osteophyte formation about it. Mild productive change is present along the greater trochanter. The femoral head articular contour is maintained, and the femoral head appears to be of normal density. Soft tissues: Phleboliths overlie the pelvis. IMPRESSION: 1. No acute fracture or dislocation identified. MRI would be more sensitive to hip fracture as clinically appropriate. 2. Degenerative changes as described. Electronically signed by: Janak Smith On 02/16/2020 19:58:38 PM
[2020-02-16 20:20] VITALS: BP 174/102
--- NOTE | 2020-02-16 23:02 | ECGEPIP ---
[facility] - ED Test Date: 2020-02-16 Pat Name: KASH SCHAFFER Department: Room: - Gender: Female Coding Support Specialist: : 1970 Requested By: REMBERTO GIRARD PA-C. Order Number: [id number] Reading MD: Shane Coronado Measurements Intervals [place] Rate: 57 P: 31 MT: 194 QRS: -1 QRSD: 107 T: 24 QT: 447 QTc: 436 Interpretive Statements SINUS BRADYCARDIA Nonspecific ST-T wave abnormalities Similar to tracing done 08-20-19 but with decreased rate Electronically Signed on 02-16-2020 23:01:26 EDT by Shane Coronado
[2020-02-21] MEDS ORDERED: VANC125C3 PO (09:36)
== END 2020-02-16 21:08 | disposition home or self-care (01) ==
LOC: M ED 16:29
DX: S70.02XA Contusion of left hip, initial encounter (principal); R55 Syncope and collapse; R19.7 Diarrhea, unspecified; W01.190A Fall on same level from slipping, tripping and stumbling with subsequent striking against furniture, initial encounter; Y92.098 Other place in other non-institutional residence as the place of occurrence of the external cause; R00.1 Bradycardia, unspecified; K50.90 Crohn's disease, unspecified, without complications; Z88.0 Allergy status to penicillin; Z88.8 Allergy status to other drugs, medicaments and biological substances; Z88.5 Allergy status to narcotic agent; Z91.030 Bee allergy status; Z91.011 Allergy to milk products; Z79.899 Other long term (current) drug therapy

== ENCOUNTER 2020-02-24 15:52 | Outpatient (CLI) | payer BC ==
[~2020-02-24] VITALS: Ht 175.3 cm; Wt 133.8 kg
[~2020-02-24 15:52] MED LIST changes: +D31000TA2 PO; +VANC125C3 PO
[2020-02-24] MEDS ORDERED: VEDOLIZUMAB 300 MG in NS 250 ML IV ONE (16:00)
[2020-02-24 16:09] VITALS: BP 135/73
[2020-02-24 17:00] VITALS: BP 135/83
== END 2020-02-24 17:00 | disposition home or self-care (01) ==
LOC: M INFU 15:52
PROVIDERS: ATTEND Internal Medicine Gastroenterology
DX: K51.90 Ulcerative colitis, unspecified, without complications (principal)
CPT/HCPCS: 96365; J3380

== ENCOUNTER 2020-03-08 15:56 | Outpatient (CLI) | payer BC ==
[~2020-03-08] VITALS: Ht 167.6 cm; Wt 124.0 kg
[2020-03-08 16:00] VITALS: BP 138/81
[2020-03-08] MEDS ORDERED: BEZLOTOXUMAB IV ONE (16:00)
[2020-03-08] MEDS ORDERED: NS IV ONE (16:00)
[2020-03-08 18:07] VITALS: BP 139/92
== END 2020-03-08 18:00 | disposition home or self-care (01) ==
LOC: M INFU 15:56
PROVIDERS: ATTEND Internal Medicine Gastroenterology
DX: K51.90 Ulcerative colitis, unspecified, without complications (principal); Z88.1 Allergy status to other antibiotic agents; Z88.8 Allergy status to other drugs, medicaments and biological substances; Z91.030 Bee allergy status
CPT/HCPCS: 96365; J0565

== ENCOUNTER → 2020-03-19 | Outpatient (REF) | payer BC | LOC: M LAB REF 13:14 | PROVIDERS: ATTEND Internal Medicine Gastroenterology | DX: A04.71 Enterocolitis due to Clostridium difficile, recurrent (principal) ==

== ENCOUNTER 2020-04-19 08:34 | Outpatient (CLI) | payer BC ==
[~2020-04-19] VITALS: Ht 165.1 cm; Wt 124.0 kg
[~2020-04-19 08:34] MED LIST changes: +VEDOLIZUMAB 300 MG in NS 250 ML IV ONE
[2020-04-19 09:28] VITALS: BP 140/88
[2020-04-19 09:29] VITALS: BP 140/88
[2020-04-19 10:13] VITALS: BP 145/76
== END 2020-04-19 10:15 | disposition home or self-care (01) ==
LOC: M INFU 08:34
PROVIDERS: ATTEND Internal Medicine Gastroenterology
DX: K51.90 Ulcerative colitis, unspecified, without complications (principal); Z88.1 Allergy status to other antibiotic agents; Z88.8 Allergy status to other drugs, medicaments and biological substances; Z91.030 Bee allergy status
CPT/HCPCS: 96365; J3380

== ENCOUNTER 2020-06-15 08:46 | Outpatient (CLI) | payer BC ==
[~2020-06-15] VITALS: Ht 165.1 cm; Wt 124.0 kg
[~2020-06-15 08:46] MED LIST changes: -CYAN500T10 PO; -VEDOLIZUMAB 300 MG in NS 250 ML IV ONE; +VITA500T37 PO
[2020-06-15 09:11] VITALS: BP 146/88
[2020-06-15 09:13] VITALS: BP 146/88
[2020-06-15] MEDS ORDERED: VEDOLIZUMAB 300 MG in NS 250 ML IV ONE (10:00)
[2020-06-15 10:23] VITALS: BP 137/76
== END 2020-06-15 10:00 | disposition home or self-care (01) ==
LOC: M INFU 08:46
PROVIDERS: ATTEND Internal Medicine Gastroenterology
DX: K51.90 Ulcerative colitis, unspecified, without complications (principal); Z88.1 Allergy status to other antibiotic agents; Z88.8 Allergy status to other drugs, medicaments and biological substances; Z91.030 Bee allergy status
CPT/HCPCS: 96365; J3380

== ENCOUNTER 2020-08-10 08:28 | Outpatient (CLI) | payer BC ==
[~2020-08-10] VITALS: Ht 165.1 cm; Wt 124.0 kg
[2020-08-10] MEDS ORDERED: VEDOLIZUMAB 300 MG in NS 250 ML IV ONE (08:30)
[2020-08-10 08:36] VITALS: BP 160/87
[2020-08-10 08:42] VITALS: BP 160/87
[2020-08-10 09:59] VITALS: BP 141/91
== END 2020-08-10 10:00 | disposition home or self-care (01) ==
LOC: M INFU 08:28
PROVIDERS: ATTEND Internal Medicine Gastroenterology
DX: K51.90 Ulcerative colitis, unspecified, without complications (principal); Z88.1 Allergy status to other antibiotic agents; Z88.8 Allergy status to other drugs, medicaments and biological substances; Z91.030 Bee allergy status
CPT/HCPCS: 96365; J3380

== ENCOUNTER → 2020-09-03 | Outpatient (CLI) | payer BC ==
[2020-09-03 12:01] LABS: ALBUMIN 3.4 GM/DL (3.2-5.2); ALT/SGPT 24 U/L (12-78); BILIRUBIN,TOTAL 0.8 MG/DL (0.2-1.0); BLOOD UREA NITROGEN 9 MG/DL (7-18); CALCIUM LEVEL 9.2 MG/DL (8.5-10.1); CARBON DIOXIDE LEVEL 26 MEQ/L (21-32); CHLORIDE LEVEL 107 MEQ/L (98-107); CHOLESTEROL LEVEL 177 MG/DL (<200); CHOLESTEROL RISK RATIO 3.612 (<5); GLOMERULAR FILTRATION RATE > 60.0 (>58); GLUCOSE, FASTING 93 MG/DL (70-100); HDL CHOLESTEROL 49 MG/DL (>40); LDL CHOLESTEROL 103 MG/DL (<100); NON-HDL-C 128 MG/DL; POTASSIUM SERUM 4.2 MEQ/L (3.5-5.1); SODIUM LEVEL 139 MEQ/L (136-145); TRIGLYCERIDES LEVEL 125 MG/DL (<150)
[2020-09-04 11:14] LABS: TOTAL 25(OH) VITAMIN D 59.5 NG/ML (30.0-100.0)
== END ==
LOC: M LAB 11:09
PROVIDERS: ATTEND Nurse Practitioner Family
DX: I10 Essential (primary) hypertension (principal)

== ENCOUNTER → 2020-09-11 | Outpatient (CLI) | payer BC ==
--- NOTE | 2020-09-11 14:18 | REP ---
INDICATION: PAIN LEFT HIP. COMPARISON: None. TECHNIQUE: AP, lateral, sunrise views of the left knee. FINDINGS: Increased sclerosis primarily along the posterior patellar margin as well as the tibial plateau is appreciated with moderate osteophytosis along the patellar contour and associated patellofemoral joint space narrowing. Cortical irregularity to the femoral condyles identified with minimal lateral joint space narrowing. No acute fracture or dislocation. No effusion. IMPRESSION: Early moderate tricompartmental arthritic changes. <Electronically signed by Braulio Arrieta > 09/11/20 [id number]
--- NOTE | 2020-09-12 04:04 | REP ---
INDICATION: PAIN LEFT HIP COMPARISON: 02/16/2020 TECHNIQUE: Incomplete frontal view of the pelvis with neutral and frog-lateral views of the left hip FINDINGS: Advanced degenerative changes to the left hip include increased periarticular sclerosis, near complete joint space obliteration, and osteophyte formation along the acetabulum and inferior femoral head. Small amounts of chondrocalcinosis cannot be excluded as well. IMPRESSION: Early advanced degenerative changes to the left hip. <Electronically signed by Braulio Arrieta > 09/12/20 [id number]
== END ==
LOC: M SOG 10:45
PROVIDERS: ATTEND Orthopaedic Surgery Adult Reconstructive Orthopaedic Surgery
DX: M25.552 Pain in left hip (principal); M25.562 Pain in left knee

== ENCOUNTER 2020-10-05 08:50 | Outpatient (CLI) | payer BC ==
[~2020-10-05] VITALS: Ht 165.1 cm; Wt 124.0 kg
[~2020-10-05 08:50] MED LIST changes: +VEDOLIZUMAB 300 MG in NS 250 ML IV ONE
[2020-10-05 09:03] VITALS: BP 151/85
[2020-10-05 09:55] VITALS: BP 136/91
== END 2020-10-05 10:00 | disposition home or self-care (01) ==
LOC: M INFU 08:50
PROVIDERS: ATTEND Internal Medicine Gastroenterology
DX: K51.90 Ulcerative colitis, unspecified, without complications (principal)
CPT/HCPCS: 96365; J3380

== ENCOUNTER → 2020-10-27 | Outpatient (CLI) | payer BC ==
[~2020-10-27] MED LIST changes: +BUPIVACAINE HCL 0.5% 10ML VIAL As Ordered ONE; +ISOVUE-300 61% 50ML VIAL As Ordered ONE; +LIDOCAINE 1% MDV 20ML VIAL As Ordered ONE; -VEDOLIZUMAB 300 MG in NS 250 ML IV ONE; +methylPREDNISolone 80MG/ML SUSP 1ML VIAL (J1040) As Ordered ONE
--- NOTE | 2020-10-27 14:22 | REP ---
INDICATION: LT HIP OA. COMPARISON: None. TECHNIQUE: The procedure was performed under the direct supervision of Dr. Benson. The benefits and risks including but not limited to pain infection and bleeding and anaphylaxis were explained to the patient and informed consent was obtained. The left femoral neck was localized using fluoroscopic guidance. The skin was prepped and draped in a sterile fashion. 1% lidocaine was used as a local anesthetic. Using fluoroscopic guidance, and last image hold technology, a 22-gauge spinal needle was inserted and advanced to the femoral neck. 0.5 ml of Isovue-300 was injected to verify placement. Four ml of a solution containing 3 ml of 0.5% Marcaine and 1 mL of Depo-Medrol 40 mg was injected. The needle was then removed. The patient tolerated the procedure well and there were no immediate complications. Less than 6 seconds of fluoro time was utilized for this procedure. FINDINGS: None IMPRESSION: Fluoro guidance for left hip injection. <Electronically signed by Paco Cash > 10/27/20 1416 <Electronically signed by Bryant Benson > 10/27/20 1419
== END ==
LOC: M RADPRO 09:10
PROVIDERS: ATTEND Orthopaedic Surgery Adult Reconstructive Orthopaedic Surgery
DX: M16.12 Unilateral primary osteoarthritis, left hip (principal)
CPT/HCPCS: 20610; 77002; J1040; Q9967

== ENCOUNTER 2020-11-30 08:46 | Outpatient (CLI) | payer BC ==
[~2020-11-30] VITALS: Ht 165.1 cm; Wt 124.0 kg
[~2020-11-30 08:46] MED LIST changes: -BUPIVACAINE HCL 0.5% 10ML VIAL As Ordered ONE; -ISOVUE-300 61% 50ML VIAL As Ordered ONE; -LIDOCAINE 1% MDV 20ML VIAL As Ordered ONE; +VEDOLIZUMAB 300 MG in NS 250 ML IV ONE; -methylPREDNISolone 80MG/ML SUSP 1ML VIAL (J1040) As Ordered ONE
[2020-11-30 08:55] VITALS: BP 133/87
[2020-11-30 09:24] VITALS: BP 133/87
[2020-11-30 10:20] VITALS: BP 138/84
== END 2020-11-30 10:20 | disposition home or self-care (01) ==
LOC: M INFU 08:46
PROVIDERS: ATTEND Internal Medicine Gastroenterology
DX: K51.90 Ulcerative colitis, unspecified, without complications (principal); Z88.1 Allergy status to other antibiotic agents; Z88.8 Allergy status to other drugs, medicaments and biological substances; Z91.030 Bee allergy status
CPT/HCPCS: 96365; J3380

== ENCOUNTER 2021-01-30 10:34 | Outpatient (CLI) | payer BC ==
[~2021-01-30] VITALS: Ht 165.1 cm; Wt 124.0 kg
[2021-01-30 10:40] VITALS: BP 146/78
[2021-01-30 12:12] VITALS: BP 169/90
== END 2021-01-30 12:10 | disposition home or self-care (01) ==
LOC: M INFU 10:34
PROVIDERS: ATTEND Internal Medicine Gastroenterology
DX: K51.90 Ulcerative colitis, unspecified, without complications (principal); Z88.1 Allergy status to other antibiotic agents; Z88.8 Allergy status to other drugs, medicaments and biological substances; Z91.030 Bee allergy status
CPT/HCPCS: 96365; J3380

== ENCOUNTER → 2021-02-21 | Outpatient (CLI) | payer BC ==
[~2021-02-21] MED LIST changes: -VEDOLIZUMAB 300 MG in NS 250 ML IV ONE
[2021-02-21 14:20] LABS: BASO # 0.1 10^3/uL (0.0-0.2); EOS # 0.2 10^3/uL (0.0-0.5); EOS % 2.5 % (0.0-3.0); HEMATOCRIT 41.1 % (36.0-47.0); HEMOGLOBIN 12.7 g/dl (12.0-15.5); LYMPH # 1.8 10^3/uL (1.5-5.0); LYMPH % 22.9 % (24.0-44.0); MEAN CORPUSCULAR HEMOGLOBIN 25.1 pg (27.0-33.0); MEAN CORPUSCULAR HGB CONC 30.9 g/dl (32.0-36.5); MEAN CORPUSCULAR VOLUME 81.4 fl (80.0-96.0); MONO # 0.5 10^3/uL (0.0-0.8); MONO % 6.8 % (2.0-8.0); NEUTROPHILS # 5.2 10^3/uL (1.5-8.5); NEUTROPHILS % 66.5 % (36.0-66.0); PLATELET COUNT, AUTOMATED 278 10^3/uL (150-450); RED BLOOD COUNT 5.05 10^6/uL (4.00-5.40); WHITE BLOOD COUNT 7.9 10^3/uL (4.0-10.0)
[2021-02-21 14:44] LABS: ALBUMIN 3.4 GM/DL (3.2-5.2); ALT/SGPT 22 U/L (12-78); BILIRUBIN,TOTAL 0.8 MG/DL (0.2-1.0); BLOOD UREA NITROGEN 8 MG/DL (7-18); C REACTIVE PROTEIN QUANTITATIV 1.59 MG/DL (0.00-0.30); CALCIUM LEVEL 9.2 MG/DL (8.5-10.1); CARBON DIOXIDE LEVEL 28 MEQ/L (21-32); CHLORIDE LEVEL 105 MEQ/L (98-107); CREATININE FOR GFR 0.77 MG/DL (0.55-1.30); GLOMERULAR FILTRATION RATE > 60.0 (>58); GLUCOSE, FASTING 86 MG/DL (70-100); POTASSIUM SERUM 3.6 MEQ/L (3.5-5.1); SODIUM LEVEL 140 MEQ/L (136-145); TOTAL PROTEIN 7.3 GM/DL (6.4-8.2)
[2021-02-21 14:59] LABS: ERYTHROCYTE SEDIMENTATION RATE 44 mm/hr (0-20)
== END ==
LOC: M PLALAB 12:26
PROVIDERS: ATTEND Physician Assistant
DX: R50.9 Fever, unspecified (principal); J06.9 Acute upper respiratory infection, unspecified; K50.113 Crohn's disease of large intestine with fistula
CPT/HCPCS: 36415; 80053; 83605; 85025; 85652; 86140; 87040; U0003

== ENCOUNTER → 2021-03-12 | Outpatient (CLI) | payer BC ==
[2021-03-12 17:17] LABS: INR 1.09; PROTHROMBIN TIME 14.5 SECONDS (12.7-14.5)
[2021-03-12 17:18] LABS: PARTIAL THROMBOPLASTIN TIME 28.8 SECONDS (25.9-37.0)
[2021-03-12 17:21] LABS: HEMOGLOBIN A1c 5.8 %
[2021-03-12 17:31] LABS: ERYTHROCYTE SEDIMENTATION RATE 46 mm/hr (0-20)
[2021-03-12 17:32] LABS: ALBUMIN 3.2 GM/DL (3.2-5.2); ALT/SGPT 16 U/L (12-78); BILIRUBIN,TOTAL 0.6 MG/DL (0.2-1.0); BLOOD UREA NITROGEN 12 MG/DL (7-18); C REACTIVE PROTEIN QUANTITATIV 1.47 MG/DL (0.00-0.30); CALCIUM LEVEL 9.3 MG/DL (8.5-10.1); CARBON DIOXIDE LEVEL 24 MEQ/L (21-32); CHLORIDE LEVEL 109 MEQ/L (98-107); CREATININE FOR GFR 0.88 MG/DL (0.55-1.30); FERRITIN 21 NG/ML (8-252); FREE T4 0.99 NG/DL (0.76-1.46); GLOMERULAR FILTRATION RATE > 60.0 (>58); GLUCOSE, FASTING 102 MG/DL (70-100); NT-PRO BNP 75 PG/ML (<125); POTASSIUM SERUM 3.7 MEQ/L (3.5-5.1); SODIUM LEVEL 141 MEQ/L (136-145); THYROID STIMULATING HORMONE 0.999 uIU/ML (0.358-3.740); TOTAL PROTEIN 6.7 GM/DL (6.4-8.2)
[2021-03-12 17:33] LABS: TOTAL 25(OH) VITAMIN D 49.5 NG/ML (30.0-100.0)
[2021-03-12 17:34] LABS: BASO # 0.1 10^3/uL (0.0-0.2); BASO % 0.8 % (0.0-1.0); EOS # 0.3 10^3/uL (0.0-0.5); EOS % 3.1 % (0.0-3.0); HEMATOCRIT 37.5 % (36.0-47.0); HEMOGLOBIN 11.9 g/dl (12.0-15.5); LYMPH # 2.1 10^3/uL (1.5-5.0); LYMPH % 23.7 % (24.0-44.0); MEAN CORPUSCULAR HEMOGLOBIN 25.4 pg (27.0-33.0); MEAN CORPUSCULAR HGB CONC 31.7 g/dl (32.0-36.5); MEAN CORPUSCULAR VOLUME 80.1 fl (80.0-96.0); MONO # 0.7 10^3/uL (0.0-0.8); MONO % 7.4 % (2.0-8.0); NEUTROPHILS # 5.6 10^3/uL (1.5-8.5); NEUTROPHILS % 64.7 % (36.0-66.0); PLATELET COUNT, AUTOMATED 286 10^3/uL (150-450); PTH INTACT 48.9 PG/ML (18.5-88.0); RED BLOOD COUNT 4.68 10^6/uL (4.00-5.40); WHITE BLOOD COUNT 8.7 10^3/uL (4.0-10.0)
== END ==
LOC: M LAB 16:24
PROVIDERS: ATTEND Family Medicine
DX: K50.113 Crohn's disease of large intestine with fistula (principal)

== ENCOUNTER 2021-03-27 09:19 | Outpatient (CLI) | payer BC ==
[~2021-03-27] VITALS: Ht 172.7 cm; Wt 127.0 kg
[~2021-03-27 09:19] MED LIST changes: +VEDOLIZUMAB 300 MG in NS 250 ML IV ONE
[2021-03-27 09:37] VITALS: BP 139/87
[2021-03-27 10:28] VITALS: BP 144/95
== END 2021-03-27 10:30 | disposition home or self-care (01) ==
LOC: M INFU 09:19
PROVIDERS: ATTEND Internal Medicine Gastroenterology
DX: K51.90 Ulcerative colitis, unspecified, without complications (principal); Z88.1 Allergy status to other antibiotic agents; Z88.8 Allergy status to other drugs, medicaments and biological substances; Z91.030 Bee allergy status
CPT/HCPCS: 96365; J3380

== ENCOUNTER 2021-05-22 08:25 | Outpatient (CLI) | payer BC ==
[~2021-05-22] VITALS: Ht 172.7 cm; Wt 127.0 kg
[~2021-05-22 08:25] MED LIST changes: -VEDOLIZUMAB 300 MG in NS 250 ML IV ONE
[2021-05-22] MEDS ORDERED: VEDOLIZUMAB 300 MG in NS 250 ML IV ONE (08:30)
[2021-05-22 08:37] VITALS: BP 163/91
[2021-05-22 10:10] VITALS: BP 165/99
== END 2021-05-22 10:10 | disposition home or self-care (01) ==
LOC: M INFU 08:25
PROVIDERS: ATTEND Internal Medicine Gastroenterology
DX: K51.90 Ulcerative colitis, unspecified, without complications (principal); Z88.1 Allergy status to other antibiotic agents; Z88.8 Allergy status to other drugs, medicaments and biological substances; Z91.030 Bee allergy status
CPT/HCPCS: 96365; J3380

== ENCOUNTER 2021-07-17 08:17 | Outpatient (CLI) | payer BC ==
[~2021-07-17] VITALS: Ht 172.7 cm; Wt 127.0 kg
[2021-07-17] MEDS ORDERED: VEDOLIZUMAB 300 MG in NS 250 ML IV ONE (08:30)
[2021-07-17 09:12] VITALS: BP 183/105
[2021-07-17 10:22] VITALS: BP 159/95
== END 2021-07-17 10:24 | disposition home or self-care (01) ==
LOC: M INFU 08:17
PROVIDERS: ATTEND Internal Medicine Gastroenterology
DX: K51.90 Ulcerative colitis, unspecified, without complications (principal)
CPT/HCPCS: 96365; J3380

== ENCOUNTER → 2021-07-17 | Outpatient (CLI) | payer BC ==
[~2021-07-17] MED LIST changes: -D31000TA2 PO; +VITA100093 PO
[2021-07-17 09:50] LABS: HEMATOCRIT 38.7 % (36.0-47.0); HEMOGLOBIN 12.3 g/dl (12.0-15.5); MEAN CORPUSCULAR HEMOGLOBIN 25.2 pg (27.0-33.0); MEAN CORPUSCULAR HGB CONC 31.8 g/dl (32.0-36.5); MEAN CORPUSCULAR VOLUME 79.3 fl (80.0-96.0); PLATELET COUNT, AUTOMATED 270 10^3/uL (150-450); RED BLOOD COUNT 4.88 10^6/uL (4.00-5.40)
[2021-07-17 10:01] LABS: BLOOD UREA NITROGEN 14 MG/DL (7-18); CREATININE FOR GFR 0.88 MG/DL (0.55-1.30); GLUCOSE, FASTING 86 MG/DL (70-100)
[2021-07-17 10:02] LABS: ALBUMIN 3.4 GM/DL (3.2-5.2); ALT/SGPT 19 U/L (12-78); BILIRUBIN,TOTAL 0.9 MG/DL (0.2-1.0); C REACTIVE PROTEIN QUANTITATIV 1.67 MG/DL (0.00-0.30); CALCIUM LEVEL 9.3 MG/DL (8.5-10.1); CARBON DIOXIDE LEVEL 28 MEQ/L (21-32); CHLORIDE LEVEL 108 MEQ/L (98-107); GLOMERULAR FILTRATION RATE > 60.0 (>58); POTASSIUM SERUM 3.9 MEQ/L (3.5-5.1); SODIUM LEVEL 141 MEQ/L (136-145); TOTAL PROTEIN 6.8 GM/DL (6.4-8.2)
[2021-07-17 10:03] LABS: HEMOGLOBIN A1c 5.6 %
[2021-07-18 08:21] LABS: FERRITIN 26 NG/ML (8-252); IRON (FE) 78 UG/DL (50-170); PERCENT SATURATION 27.5 % (13.2-45.0); TOTAL IRON BINDING CAPACITY 284 UG/DL (250-450)
== END ==
LOC: M LAB 08:24
PROVIDERS: ATTEND Internal Medicine Hematology
DX: F32.9 Major depressive disorder, single episode, unspecified (principal)

== ENCOUNTER → 2021-08-02 | Outpatient (CLI) | payer BC | LOC: M SOG 11:10 | PROVIDERS: ATTEND Orthopaedic Surgery Adult Reconstructive Orthopaedic Surgery | DX: M25.552 Pain in left hip (principal); M17.12 Unilateral primary osteoarthritis, left knee ==

== ENCOUNTER → 2021-08-13 | Outpatient (CLI) | payer BC ==
[~2021-08-13] MED LIST changes: +BUPIVACAINE HCL 0.5% 30ML VIAL As Ordered ONE; +ISOVUE-300 61% 50ML VIAL As Ordered ONE; +LIDOCAINE 1% MDV 20ML VIAL As Ordered ONE; +methylPREDNISolone 80MG/ML SUSP 1ML VIAL (J1040) As Ordered ONE
== END ==
LOC: M RADPRO 14:21
PROVIDERS: ATTEND Orthopaedic Surgery Adult Reconstructive Orthopaedic Surgery
DX: M16.12 Unilateral primary osteoarthritis, left hip (principal)
CPT/HCPCS: 20610; 77002; J1040; Q9967

== ENCOUNTER 2021-09-02 21:11 | Emergency (ER) | payer BC ==
[~2021-09-02] VITALS: Ht 172.7 cm; Wt 123.4 kg
[~2021-09-02 21:11] MED LIST changes: -BUPIVACAINE HCL 0.5% 30ML VIAL As Ordered ONE; -ISOVUE-300 61% 50ML VIAL As Ordered ONE; -LIDOCAINE 1% MDV 20ML VIAL As Ordered ONE; -methylPREDNISolone 80MG/ML SUSP 1ML VIAL (J1040) As Ordered ONE
[2021-09-02] MEDS ORDERED: BACL10TA2 PO (21:18)
[2021-09-03 03:24] LABS: BASO # 0.1 10^3/uL (0.0-0.2); BASO % 0.8 % (0.0-1.0); EOS # 0.4 10^3/uL (0.0-0.5); EOS % 3.2 % (0.0-3.0); HEMATOCRIT 38.9 % (36.0-47.0); HEMOGLOBIN 12.5 g/dl (12.0-15.5); LYMPH # 2.9 10^3/uL (1.5-5.0); LYMPH % 24.3 % (24.0-44.0); MEAN CORPUSCULAR HEMOGLOBIN 25.9 pg (27.0-33.0); MEAN CORPUSCULAR HGB CONC 32.1 g/dl (32.0-36.5); MEAN CORPUSCULAR VOLUME 80.5 fl (80.0-96.0); MONO % 8.6 % (2.0-8.0); NEUTROPHILS # 7.5 10^3/uL (1.5-8.5); NEUTROPHILS % 62.5 % (36.0-66.0); PLATELET COUNT, AUTOMATED 341 10^3/uL (150-450); RED BLOOD COUNT 4.83 10^6/uL (4.00-5.40); WHITE BLOOD COUNT 11.9 10^3/uL (4.0-10.0)
[2021-09-03 03:54] LABS: ALBUMIN 3.2 GM/DL (3.2-5.2); ALT/SGPT 14 U/L (12-78); BILIRUBIN,DIRECT 0.1 MG/DL (0.0-0.2); BILIRUBIN,TOTAL 0.5 MG/DL (0.2-1.0); BLOOD UREA NITROGEN 13 MG/DL (7-18); CALCIUM LEVEL 9.1 MG/DL (8.5-10.1); CARBON DIOXIDE LEVEL 27 MEQ/L (21-32); CHLORIDE LEVEL 107 MEQ/L (98-107); CK-MB VALUE MASS < 1.0 NG/ML (<3.6); CPK CREATINE PHOSPHOKINASE 41 U/L (26-192); CREATININE FOR GFR 0.84 MG/DL (0.55-1.30); GLOMERULAR FILTRATION RATE > 60.0 (>58); GLUCOSE, FASTING 89 MG/DL (70-100); MB/CK RELATIVE INDEX 2.44 (< OR =4); POTASSIUM SERUM 3.9 MEQ/L (3.5-5.1); SODIUM LEVEL 140 MEQ/L (136-145); TOTAL PROTEIN 6.7 GM/DL (6.4-8.2)
[2021-09-03] MEDS ORDERED: COMBIVENT RESPIMAT 100-20MCG INHALER 4GM INH STA (05:53)
[2021-09-03] MEDS ORDERED: BENZONATATE 100MG CAPSULE PO ONE (06:00)
[2021-09-03] MEDS ORDERED: predniSONE 20 MG TAB PO ONE (06:25)
[2021-09-03 06:31] VITALS: BP 156/75
[2021-09-03] MEDS ORDERED: BENZ200C70 PO (06:51)
[2021-09-03] MEDS ORDERED: PRED20TA PO (06:51)
== END 2021-09-03 07:01 | disposition home or self-care (01) ==
LOC: M ED 21:11
DX: J98.01 Acute bronchospasm (principal); R06.02 Shortness of breath; R05.9 Cough, unspecified; K21.9 Gastro-esophageal reflux disease without esophagitis; Z90.49 Acquired absence of other specified parts of digestive tract; Z90.710 Acquired absence of both cervix and uterus; Z88.1 Allergy status to other antibiotic agents; Z88.8 Allergy status to other drugs, medicaments and biological substances; Z91.030 Bee allergy status; Z79.899 Other long term (current) drug therapy
CPT/HCPCS: 36415; 71045; 80048; 80076; 82550; 82553; 84484; 85025; 93041; 94640; 94760; 99284; J7512

== ENCOUNTER 2021-09-11 08:46 | Outpatient (CLI) | payer BC ==
[~2021-09-11] VITALS: Ht 172.7 cm; Wt 127.0 kg
[~2021-09-11 08:46] MED LIST changes: +BACL10TA2 PO; +BENZ200C70 PO; +VEDOLIZUMAB 300 MG in NS 250 ML IV ONE
[2021-09-11 09:03] VITALS: BP 135/87
[2021-09-11 10:12] VITALS: BP 141/81
== END 2021-09-11 10:15 | disposition home or self-care (01) ==
LOC: M INFU 08:46
PROVIDERS: ATTEND Internal Medicine Gastroenterology
DX: K51.90 Ulcerative colitis, unspecified, without complications (principal); Z88.1 Allergy status to other antibiotic agents; Z88.8 Allergy status to other drugs, medicaments and biological substances; Z91.030 Bee allergy status
CPT/HCPCS: 96365; J3380

== ENCOUNTER 2021-11-06 07:55 | Outpatient (CLI) | payer BC ==
[~2021-11-06] VITALS: Ht 172.7 cm; Wt 122.4 kg
[~2021-11-06 07:55] MED LIST changes: -VEDOLIZUMAB 300 MG in NS 250 ML IV ONE
[2021-11-06] MEDS ORDERED: VEDOLIZUMAB 300 MG in NS 250 ML IV ONE (08:30)
[2021-11-06 08:58] VITALS: BP 179/115
[2021-11-06 09:55] VITALS: BP 162/89
== END 2021-11-06 09:55 | disposition home or self-care (01) ==
LOC: M INFU 07:55
PROVIDERS: ATTEND Internal Medicine Gastroenterology
DX: K51.90 Ulcerative colitis, unspecified, without complications (principal); Z88.1 Allergy status to other antibiotic agents; Z88.8 Allergy status to other drugs, medicaments and biological substances; Z91.030 Bee allergy status
CPT/HCPCS: 96365; J3380

== ENCOUNTER → 2021-11-23 | Outpatient (CLI) | payer BC ==
[2021-11-23 15:37] LABS: BASO # 0.1 10^3/uL (0.0-0.2); BASO % 1.2 % (0.0-1.0); EOS # 0.4 10^3/uL (0.0-0.5); EOS % 5.5 % (0.0-3.0); HEMATOCRIT 39.8 % (36.0-47.0); HEMOGLOBIN 12.4 g/dl (12.0-15.5); LYMPH % 29.7 % (24.0-44.0); MEAN CORPUSCULAR HEMOGLOBIN 26.1 pg (27.0-33.0); MEAN CORPUSCULAR HGB CONC 31.2 g/dl (32.0-36.5); MEAN CORPUSCULAR VOLUME 83.8 fl (80.0-96.0); MONO # 0.7 10^3/uL (0.0-0.8); MONO % 10.4 % (2.0-8.0); NEUTROPHILS # 3.6 10^3/uL (1.5-8.5); NEUTROPHILS % 52.9 % (36.0-66.0); PLATELET COUNT, AUTOMATED 300 10^3/uL (150-450); RED BLOOD COUNT 4.75 10^6/uL (4.00-5.40); WHITE BLOOD COUNT 6.7 10^3/uL (4.0-10.0)
[2021-11-23 15:46] LABS: MONO REFLEX EBV VCA IgM NEGATIVE (NEGATIVE)
== END ==
LOC: M PLALAB 12:04
PROVIDERS: ATTEND Physician Assistant
DX: R53.83 Other fatigue (principal); Z20.828 Contact with and (suspected) exposure to other viral communicable diseases

== ENCOUNTER → 2021-12-11 | Outpatient (CLI) | payer BC ==
[~2021-12-11] MED LIST changes: +BUPIVACAINE HCL 0.5% 10ML VIAL ONE; +ISOVUE-300 61% 50ML VIAL ONE; +methylPREDNISolone 80MG/ML SUSP 1ML VIAL (J1040) ONE
== END ==
LOC: M PLARAD 13:11
PROVIDERS: ATTEND Orthopaedic Surgery Adult Reconstructive Orthopaedic Surgery
DX: M16.12 Unilateral primary osteoarthritis, left hip (principal)
CPT/HCPCS: 76000; J1040; Q9967

== ENCOUNTER → 2021-12-11 | Outpatient (CLI) | payer BC ==
[~2021-12-11] MED LIST changes: -BUPIVACAINE HCL 0.5% 10ML VIAL ONE; -ISOVUE-300 61% 50ML VIAL ONE; -methylPREDNISolone 80MG/ML SUSP 1ML VIAL (J1040) ONE
[2021-12-11 15:43] LABS: BASO # 0.1 10^3/uL (0.0-0.2); BASO % 1.3 % (0.0-1.0); EOS # 0.4 10^3/uL (0.0-0.5); EOS % 5.8 % (0.0-3.0); HEMATOCRIT 41.4 % (36.0-47.0); HEMOGLOBIN 12.8 g/dl (12.0-15.5); LYMPH # 2.3 10^3/uL (1.5-5.0); LYMPH % 30.1 % (24.0-44.0); MEAN CORPUSCULAR HEMOGLOBIN 25.9 pg (27.0-33.0); MEAN CORPUSCULAR HGB CONC 30.9 g/dl (32.0-36.5); MEAN CORPUSCULAR VOLUME 83.6 fl (80.0-96.0); MONO # 0.7 10^3/uL (0.0-0.8); MONO % 9.8 % (2.0-8.0); NEUTROPHILS # 3.9 10^3/uL (1.5-8.5); NEUTROPHILS % 52.7 % (36.0-66.0); PLATELET COUNT, AUTOMATED 280 10^3/uL (150-450); RED BLOOD COUNT 4.95 10^6/uL (4.00-5.40); WHITE BLOOD COUNT 7.5 10^3/uL (4.0-10.0)
[2021-12-11 16:05] LABS: FREE T4 0.84 NG/DL (0.76-1.46); THYROID STIMULATING HORMONE 1.09 uIU/ML (0.358-3.740)
== END ==
LOC: M PLALAB 13:09
PROVIDERS: ATTEND Internal Medicine Hematology
DX: E66.01 Morbid (severe) obesity due to excess calories (principal)

== ENCOUNTER 2022-01-14 07:50 | Outpatient (CLI) | payer BC ==
[~2022-01-14] VITALS: Ht 172.7 cm; Wt 122.4 kg
[~2022-01-14 07:50] MED LIST changes: +VEDOLIZUMAB 300 MG in NS 250 ML IV ONE
[2022-01-14] MEDS ORDERED: VEDOLIZUMAB 300 MG in NS 250 ML IV ONE (08:00)
[2022-01-14 08:03] VITALS: BP 168/86
[2022-01-14 08:55] VITALS: BP 134/82
[2022-01-15] MEDS ORDERED: VEDOLIZUMAB 300 MG in NS 250 ML IV ONE (08:00)
== END 2022-01-14 08:55 | disposition home or self-care (01) ==
LOC: M INFU 07:50
PROVIDERS: ATTEND Internal Medicine Gastroenterology
DX: K51.90 Ulcerative colitis, unspecified, without complications (principal); Z88.0 Allergy status to penicillin; Z88.1 Allergy status to other antibiotic agents; Z88.8 Allergy status to other drugs, medicaments and biological substances
CPT/HCPCS: 96365; J3380

== ENCOUNTER 2022-03-11 08:28 | Outpatient (CLI) | payer BC ==
[~2022-03-11] VITALS: Ht 172.7 cm; Wt 122.4 kg
[~2022-03-11 08:28] MED LIST changes: -VEDOLIZUMAB 300 MG in NS 250 ML IV ONE
[2022-03-11] MEDS ORDERED: VEDOLIZUMAB 300 MG in NS 250 ML IV ONE (08:30)
[2022-03-11 08:54] VITALS: BP 135/95
[2022-03-11 09:40] VITALS: BP 127/87
== END 2022-03-11 09:40 | disposition home or self-care (01) ==
LOC: M INFU 08:28
PROVIDERS: ATTEND Internal Medicine Gastroenterology
DX: K51.90 Ulcerative colitis, unspecified, without complications (principal); Z88.0 Allergy status to penicillin; Z88.1 Allergy status to other antibiotic agents; Z88.8 Allergy status to other drugs, medicaments and biological substances
CPT/HCPCS: 96365; J3380

== ENCOUNTER 2022-04-05 13:51 | Observation (INO) | payer BC ==
[~2022-04-05 13:51] MED LIST changes: -VENTAER; +VENTAER PO
[2022-04-05 14:42] LABS: BASO # 0.1 10^3/uL (0.0-0.2); BASO % 0.9 % (0.0-1.0); EOS # 0.2 10^3/uL (0.0-0.5); EOS % 2.8 % (0.0-3.0); HEMATOCRIT 40.4 % (36.0-47.0); HEMOGLOBIN 12.8 g/dl (12.0-15.5); LYMPH # 2.2 10^3/uL (1.5-5.0); LYMPH % 27.4 % (24.0-44.0); MEAN CORPUSCULAR HEMOGLOBIN 26.2 pg (27.0-33.0); MEAN CORPUSCULAR HGB CONC 31.7 g/dl (32.0-36.5); MEAN CORPUSCULAR VOLUME 82.6 fl (80.0-96.0); MONO # 0.7 10^3/uL (0.0-0.8); MONO % 8.2 % (2.0-8.0); NEUTROPHILS # 4.9 10^3/uL (1.5-8.5); NEUTROPHILS % 60.3 % (36.0-66.0); PLATELET COUNT, AUTOMATED 239 10^3/uL (150-450); RED BLOOD COUNT 4.89 10^6/uL (4.00-5.40); WHITE BLOOD COUNT 8.2 10^3/uL (4.0-10.0)
[2022-04-05] MEDS ORDERED: ISOVUE-370 76% 100ML VIAL As Ordered ONE (14:43)
[2022-04-05 15:00] LABS: INR 0.98; PROTHROMBIN TIME 13.2 SECONDS (12.5-14.5)
[2022-04-05 15:01] LABS: PARTIAL THROMBOPLASTIN TIME 25.8 SECONDS (24.8-34.2)
[2022-04-05 15:14] LABS: RSV AMPLIFICATION NEGATIVE (NEGATIVE)
[2022-04-05] MEDS ORDERED: HYDR-3363 PO (19:11)
[2022-04-05] MEDS ORDERED: BUPR300T92 PO (19:11)
[2022-04-05] MEDS ORDERED: NALT50TA4 PO (19:11)
[2022-04-05] MEDS ORDERED: BUPR-365 PO (19:11)
[2022-04-05] MEDS ORDERED: HOME MED LIST COMPLETE! XX SCH (19:15)
[2022-04-05] MEDS ORDERED: ramipriL 5 MG CAP PO SCH (21:00)
[2022-04-05] MEDS ORDERED: ALBUTEROL 90 MCG/ACT 8GM HFA INHALER INH PRN (21:40)
[2022-04-05] MEDS ORDERED: ACETAMINOPHEN TAB 650MG DOSE (2X325MG) PO PRN (21:40)
[2022-04-05] MEDS ORDERED: PILL CUTTER 1 EACH XX PRN (22:00)
[2022-04-05 22:08] LABS: AMPHETAMINES LEVEL URINE NEGATIVE (NEGATIVE); CANNABINOIDS URINE NEGATIVE (NEGATIVE); PHENCYCLIDINE URINE NEGATIVE (NEGATIVE)
[2022-04-05 22:09] LABS: BARBITURATES URINE NEGATIVE (NEGATIVE); BENZODIAZEPINES URINE NEGATIVE (NEGATIVE); COCAINE METABOLITE URINE NEGATIVE (NEGATIVE); METHADONE URINE NEGATIVE (NEGATIVE); OPIATES URINE NEGATIVE (NEGATIVE)
[2022-04-05 22:12] LABS: ALBUMIN 3.3 G/DL (3.2-5.2); ALKALINE PHOSPHATASE 61 U/L (46-116); ALT/SGPT 16 U/L (7.0-40); AST/SGOT 13 U/L (<34); BILIRUBIN,TOTAL 0.9 MG/DL (0.3-1.2); BLOOD UREA NITROGEN 9 MG/DL (9-23); CALCIUM LEVEL 8.9 MG/DL (8.5-10.1); CARBON DIOXIDE LEVEL 27 MMOL/L (20-31); CHLORIDE LEVEL 105 MMOL/L (98-107); CREATININE FOR GFR 0.76 MG/DL (0.55-1.30); GLOMERULAR FILTRATION RATE > 60.0 (>51); GLUCOSE, FASTING 90 MG/DL (60-100); POTASSIUM SERUM 3.2 MMOL/L (3.5-5.1); SODIUM LEVEL 142 MMOL/L (136-145); TOTAL PROTEIN 6.6 G/DL (5.7-8.2)
[2022-04-05 22:15] LABS: THYROID STIMULATING HORMONE 1.292 uIU/ML (0.55-4.78)
[2022-04-05] MEDS ORDERED: POTASSIUM CHLORIDE 10MEQ SR TABLET PO ONE (22:40)
[2022-04-05] MEDS: NALTREXONE 50 MG TAB PO SCH (23:19)
[2022-04-05] MEDS: FAMOTIDINE 20 MG TAB PO SCH (23:20)
[2022-04-06 08:38] LABS: BASO # 0.1 10^3/uL (0.0-0.2); BASO % 0.9 % (0.0-1.0); EOS # 0.2 10^3/uL (0.0-0.5); EOS % 2.7 % (0.0-3.0); HEMATOCRIT 38.7 % (36.0-47.0); HEMOGLOBIN 12.3 g/dl (12.0-15.5); LYMPH # 2.1 10^3/uL (1.5-5.0); LYMPH % 27.6 % (24.0-44.0); MEAN CORPUSCULAR HEMOGLOBIN 26.1 pg (27.0-33.0); MEAN CORPUSCULAR HGB CONC 31.8 g/dl (32.0-36.5); MEAN CORPUSCULAR VOLUME 82.2 fl (80.0-96.0); MONO # 0.7 10^3/uL (0.0-0.8); MONO % 8.5 % (2.0-8.0); NEUTROPHILS # 4.6 10^3/uL (1.5-8.5); PLATELET COUNT, AUTOMATED 248 10^3/uL (150-450); RED BLOOD COUNT 4.71 10^6/uL (4.00-5.40); WHITE BLOOD COUNT 7.7 10^3/uL (4.0-10.0)
[2022-04-06] MEDS ORDERED: amLODIPine 5 MG TAB PO SCH (09:00)
[2022-04-06 09:05] LABS: CHOLESTEROL RISK RATIO 3.75 (<5); HDL CHOLESTEROL 42.9 MG/DL (>40); LDL CHOLESTEROL 97.7 MG/DL (<100)
[2022-04-06 09:06] LABS: BLOOD UREA NITROGEN 7 MG/DL (9-23); CALCIUM LEVEL 8.9 MG/DL (8.5-10.1); CARBON DIOXIDE LEVEL 28 MMOL/L (20-31); CHLORIDE LEVEL 105 MMOL/L (98-107); CREATININE FOR GFR 0.69 MG/DL (0.55-1.30); GLOMERULAR FILTRATION RATE > 60.0 (>51); GLUCOSE, FASTING 91 MG/DL (60-100); POTASSIUM SERUM 3.1 MMOL/L (3.5-5.1); SODIUM LEVEL 142 MMOL/L (136-145)
[2022-04-06] MEDS ORDERED: POTASSIUM CHLORIDE 10MEQ SR TABLET PO ONE (10:00)
[2022-04-06] MEDS ORDERED: ALTA1CAP3 PO (10:35)
[2022-04-06] MEDS ORDERED: AMLO1TAB25 PO (10:35)
[2022-04-06] MEDS: FAMOTIDINE 20 MG TAB PO SCH (11:20)
[2022-04-06 11:21] VITALS: BP 154/79
[2022-04-06] MEDS: NALTREXONE 50 MG TAB PO SCH (11:21)
[2022-04-06 17:06] VITALS: BP 145/84
[2022-04-06] MEDS ORDERED: METOPROLOL SUCC (TopROL XL) 50MG **XL** TAB PO SCH (21:00)
[2022-04-06] MEDS ORDERED: ramipriL 5 MG CAP PO SCH (21:00)
== END 2022-04-06 18:49 | disposition home or self-care (01) ==
LOC: M ED 13:51 → EDBD 13:51 → M ED INP 13:52
PROVIDERS: ADMIT Internal Medicine; ATTEND Internal Medicine
DX: R25.8 Other abnormal involuntary movements (principal); R41.82 Altered mental status, unspecified; H53.8 Other visual disturbances; I10 Essential (primary) hypertension; E66.9 Obesity, unspecified; Z68.41 Body mass index [BMI] 40.0-44.9, adult; E87.6 Hypokalemia; K21.9 Gastro-esophageal reflux disease without esophagitis; K50.90 Crohn's disease, unspecified, without complications; G43.709 Chronic migraine without aura, not intractable, without status migrainosus; G43.B0 Ophthalmoplegic migraine, not intractable; J45.909 Unspecified asthma, uncomplicated; R93.0 Abnormal findings on diagnostic imaging of skull and head, not elsewhere classified; N83.209 Unspecified ovarian cyst, unspecified side; A04.71 Enterocolitis due to Clostridium difficile, recurrent; M19.90 Unspecified osteoarthritis, unspecified site; G47.00 Insomnia, unspecified; F32.A Depression, unspecified; F41.9 Anxiety disorder, unspecified; Z79.899 Other long term (current) drug therapy; Z88.8 Allergy status to other drugs, medicaments and biological substances; Z88.0 Allergy status to penicillin; E73.9 Lactose intolerance, unspecified; Z91.030 Bee allergy status; Z91.018 Allergy to other foods

== ENCOUNTER → 2022-04-19 | Outpatient (CLI) | payer BC ==
[~2022-04-19] MED LIST changes: +AMLO1TAB25 PO; +BUPIVACAINE HCL 0.5% 30ML VIAL As Ordered ONE; +BUPR-365 PO; +BUPR300T92 PO; +HYDR-3363 PO; +LIDOCAINE 1% MDV 20ML VIAL As Ordered ONE; +NALT50TA4 PO; +methylPREDNISolone 80MG/ML SUSP 1ML VIAL As Ordered ONE
== END ==
LOC: M RAD 11:04
PROVIDERS: ATTEND Orthopaedic Surgery Adult Reconstructive Orthopaedic Surgery
DX: M16.12 Unilateral primary osteoarthritis, left hip (principal)
CPT/HCPCS: 76000; J1040

== ENCOUNTER → 2022-05-14 | Outpatient (CLI) | payer BC, OTHER ==
[~2022-05-14] VITALS: Ht 175.3 cm; Wt 117.3 kg
[~2022-05-14] MED LIST changes: -BUPIVACAINE HCL 0.5% 30ML VIAL As Ordered ONE; -LIDOCAINE 1% MDV 20ML VIAL As Ordered ONE; +VEDOLIZUMAB 300 MG in NS 250 ML IV ONE; -methylPREDNISolone 80MG/ML SUSP 1ML VIAL As Ordered ONE
[2022-05-14 08:05] VITALS: BP 142/95
[2022-05-14 09:12] VITALS: BP 147/87
== END ==
LOC: M INFU 07:45
PROVIDERS: ATTEND Internal Medicine Gastroenterology
DX: K51.90 Ulcerative colitis, unspecified, without complications (principal); Z88.0 Allergy status to penicillin; Z88.8 Allergy status to other drugs, medicaments and biological substances
CPT/HCPCS: 96365; J3380

== ENCOUNTER → 2022-05-21 | Outpatient (CLI) | payer OTHER ==
[~2022-05-21] MED LIST changes: -VEDOLIZUMAB 300 MG in NS 250 ML IV ONE
[2022-05-21 18:35] LABS: C REACTIVE PROTEIN QUANTITATIV 1.3 MG/DL (<1.0)
[2022-05-21 18:37] LABS: RHEUMATOID FACTOR QUANT 5.6 IU/ML (<14)
== END ==
LOC: M PLALAB 15:47
PROVIDERS: ATTEND Internal Medicine Hematology
DX: M19.90 Unspecified osteoarthritis, unspecified site (principal)

== ENCOUNTER → 2022-05-30 | Outpatient (REF) | payer OTHER | LOC: M SFHCPLAZ 17:07 | PROVIDERS: ATTEND Physician Assistant | DX: R50.9 Fever, unspecified (principal) ==

== ENCOUNTER 2022-07-01 08:30 | Outpatient (CLI) | payer BC, OTHER ==
[~2022-07-01] VITALS: Ht 175.3 cm; Wt 121.0 kg
[2022-07-01 08:30] VITALS: BP 127/76
[~2022-07-01 08:30] MED LIST changes: +VEDOLIZUMAB 300 MG in NS 250 ML IV ONE
== END 2022-07-01 10:00 ==
LOC: M INFU 08:30
PROVIDERS: ATTEND Internal Medicine Gastroenterology
DX: K51.90 Ulcerative colitis, unspecified, without complications (principal); Z88.0 Allergy status to penicillin; Z88.8 Allergy status to other drugs, medicaments and biological substances
CPT/HCPCS: 96365; J3380

== ENCOUNTER → 2022-08-20 | Outpatient (CLI) | payer OTHER ==
[~2022-08-20] MED LIST changes: +FLUT50SP17; -FLUTISP; -VEDOLIZUMAB 300 MG in NS 250 ML IV ONE
== END ==
LOC: M PLALAB 13:52
PROVIDERS: ATTEND Internal Medicine Hematology
DX: I10 Essential (primary) hypertension (principal); I82.90 Acute embolism and thrombosis of unspecified vein

== ENCOUNTER 2022-08-26 08:50 | Outpatient (CLI) | payer OTHER ==
[~2022-08-26] VITALS: Ht 175.3 cm; Wt 121.1 kg
[2022-08-26 08:05] VITALS: BP 141/86
[~2022-08-26 08:50] MED LIST changes: +VEDOLIZUMAB 300 MG in NS 250 ML IV ONE
[2022-08-26 10:05] VITALS: BP 124/82
== END 2022-08-26 10:05 ==
LOC: M INFU 08:50
PROVIDERS: ATTEND Internal Medicine Gastroenterology
DX: K51.90 Ulcerative colitis, unspecified, without complications (principal); Z88.0 Allergy status to penicillin; Z88.8 Allergy status to other drugs, medicaments and biological substances
CPT/HCPCS: 96365; J3380

== ENCOUNTER → 2022-09-16 | Outpatient (CLI) | payer OTHER ==
[~2022-09-16] MED LIST changes: -VEDOLIZUMAB 300 MG in NS 250 ML IV ONE
== END ==
LOC: M SOG 08:18
PROVIDERS: ATTEND Orthopaedic Surgery
DX: M17.12 Unilateral primary osteoarthritis, left knee (principal)

== ENCOUNTER 2022-10-21 08:00 | Outpatient (CLI) | payer OTHER ==
[~2022-10-21] VITALS: Ht 167.6 cm; Wt 120.6 kg
[2022-10-21 08:25] VITALS: BP 139/91; O2SAT 96
[2022-10-21] MEDS ORDERED: VEDOLIZUMAB 300 MG in NS 250 ML IV ONE (08:30)
[2022-10-21 09:05] VITALS: BP 142/89; O2SAT 96
== END 2022-10-21 09:10 ==
LOC: M INFU 08:00
PROVIDERS: ATTEND Internal Medicine Gastroenterology
DX: K51.90 Ulcerative colitis, unspecified, without complications (principal); Z88.0 Allergy status to penicillin; Z88.8 Allergy status to other drugs, medicaments and biological substances
CPT/HCPCS: 96365; J3380

== ENCOUNTER 2022-11-09 19:26 | Observation (INO) | payer OTHER ==
[~2022-11-09] VITALS: Ht 172.7 cm; Wt 119.1 kg
[2022-11-09] MEDS ORDERED: MORPHINE 4 MG/ML 1ML VIAL IV ONE ×2 (20:00→23:00)
[2022-11-09] MEDS ORDERED: ONDANSETRON 4MG 2ML VIAL IV ONE (20:00)
[2022-11-09] MEDS ORDERED: NS 1,000 ML IV ONE (20:00)
[2022-11-09 20:18] LABS: BASO # 0.1 10^3/uL (0.0-0.2); BASO % 0.9 % (0.0-1.0); EOS % 0.2 % (0.0-3.0); HEMOGLOBIN 12.9 g/dl (12.0-15.5); LYMPH # 1.1 10^3/uL (1.5-5.0); MEAN CORPUSCULAR HEMOGLOBIN 26.2 pg (27.0-33.0); MEAN CORPUSCULAR HGB CONC 31.5 g/dl (32.0-36.5); MEAN CORPUSCULAR VOLUME 83.2 fl (80.0-96.0); MONO # 0.5 10^3/uL (0.0-0.8); MONO % 5.2 % (2.0-8.0); NEUTROPHILS # 8.4 10^3/uL (1.5-8.5); NEUTROPHILS % 81.3 % (36.0-66.0); PLATELET COUNT, AUTOMATED 338 10^3/uL (150-450); RED BLOOD COUNT 4.93 10^6/uL (4.00-5.40); WHITE BLOOD COUNT 10.3 10^3/uL (4.0-10.0)
[2022-11-09 20:28] LABS: INR 1.01; PROTHROMBIN TIME 13.5 SECONDS (12.5-14.5)
[2022-11-09 20:29] LABS: PARTIAL THROMBOPLASTIN TIME 22.3 SECONDS (24.8-34.2)
[2022-11-09] MEDS ORDERED: ISOVUE-370 76% 100ML VIAL As Ordered ONE (20:33)
[2022-11-09 20:45] LABS: ALBUMIN 3.1 G/DL (3.2-5.2); BILIRUBIN,DIRECT 0.2 MG/DL (<0.4); BILIRUBIN,TOTAL 0.7 MG/DL (0.3-1.2); TOTAL PROTEIN 6.8 G/DL (5.7-8.2)
[2022-11-09] MEDS ORDERED: AMLO1TAB25 PO (23:02)
[2022-11-09] MEDS ORDERED: RAMI1CAP24 PO (23:02)
[2022-11-09] MEDS ORDERED: PRED10TA2 PO (23:08)
[2022-11-09] MEDS ORDERED: HOME MED LIST COMPLETE! XX SCH (23:10)
[2022-11-10] MEDS ORDERED: ACETAMINOPHEN TAB 650MG DOSE (2X325MG) PO PRN (03:05)
[2022-11-10] MEDS ORDERED: NORCO, ANEXSIA 5/325MG TABLET (HYDROcodone/ACETAMINOPHEN) PO PRN (03:05)
[2022-11-10] MEDS: NORCO, ANEXSIA 5/325MG TABLET (HYDROcodone/ACETAMINOPHEN) PO PRN ×3 (03:47→17:08)
[2022-11-10] MEDS: ONDANSETRON 4MG ORAL DISINTEGRATING TAB PO PRN ×2 (03:50→09:50)
[2022-11-10] MEDS: METOPROLOL SUCC (TopROL XL) 50MG **XL** TAB PO SCH ×2 (04:14→20:49)
[2022-11-10] MEDS: HEPARIN SOD (PORCINE) 5000UNITS/ML 1ML VIAL/SYRINGE SC SCH ×3 (06:02→20:47)
[2022-11-10] MEDS ORDERED: ALBUTEROL SULFATE 2.5MG/0.5ML INH NEB SOLN INH PRN (09:50)
[2022-11-10 10:00] LABS: HEMATOCRIT 40.3 % (36.0-47.0); HEMOGLOBIN 12.6 g/dl (12.0-15.5); MEAN CORPUSCULAR HEMOGLOBIN 26.1 pg (27.0-33.0); MEAN CORPUSCULAR HGB CONC 31.3 g/dl (32.0-36.5); MEAN CORPUSCULAR VOLUME 83.4 fl (80.0-96.0); PLATELET COUNT, AUTOMATED 335 10^3/uL (150-450); RED BLOOD COUNT 4.83 10^6/uL (4.00-5.40); WHITE BLOOD COUNT 12.3 10^3/uL (4.0-10.0)
[2022-11-10] MEDS: ramipriL 5 MG CAP PO SCH ×2 (10:08→20:48)
[2022-11-10] MEDS: FAMOTIDINE 20 MG TAB PO SCH ×2 (10:08→20:49)
[2022-11-10] MEDS: predniSONE 10MG TAB PO SCH (10:09)
[2022-11-10 10:23] LABS: ALBUMIN 2.9 G/DL (3.2-5.2); ALKALINE PHOSPHATASE 74 U/L (46-116); ALT/SGPT 21 U/L (7.0-40); AST/SGOT 8 U/L (<34); BILIRUBIN,TOTAL 0.8 MG/DL (0.3-1.2); BLOOD UREA NITROGEN 14 MG/DL (9-23); CALCIUM LEVEL 8.7 MG/DL (8.5-10.1); CARBON DIOXIDE LEVEL 24 MMOL/L (20-31); CHLORIDE LEVEL 104 MMOL/L (98-107); CREATININE FOR GFR 0.69 MG/DL (0.55-1.30); GLOMERULAR FILTRATION RATE > 60.0 (>51); GLUCOSE, FASTING 126 MG/DL (60-100); POTASSIUM SERUM 3.9 MMOL/L (3.5-5.1); SODIUM LEVEL 140 MMOL/L (136-145); TOTAL PROTEIN 6.4 G/DL (5.7-8.2)
[2022-11-10] MEDS: ALBUTEROL SULFATE 2.5MG/0.5ML INH NEB SOLN INH SCH ×3 (11:50→20:35)
[2022-11-10] MEDS ORDERED: MORPHINE 2 MG/ML 1ML VIAL IV PRN (12:15)
[2022-11-10 14:40] VITALS: BP 129/74; TEMP 97.5; O2SAT 95
[2022-11-10 21:15] VITALS: BP 121/71; TEMP 97.9; O2SAT 93
[2022-11-11] MEDS: NORCO, ANEXSIA 5/325MG TABLET (HYDROcodone/ACETAMINOPHEN) PO PRN ×2 (00:01→08:12)
[2022-11-11] MEDS: HEPARIN SOD (PORCINE) 5000UNITS/ML 1ML VIAL/SYRINGE SC SCH ×3 (05:12→21:15)
[2022-11-11 06:00] VITALS: BP 134/86; TEMP 97.5; O2SAT 92
[2022-11-11 06:21] LABS: HEMATOCRIT 38.1 % (36.0-47.0); HEMOGLOBIN 11.8 g/dl (12.0-15.5); MEAN CORPUSCULAR HEMOGLOBIN 25.8 pg (27.0-33.0); MEAN CORPUSCULAR VOLUME 83.4 fl (80.0-96.0); PLATELET COUNT, AUTOMATED 301 10^3/uL (150-450); RED BLOOD COUNT 4.57 10^6/uL (4.00-5.40); WHITE BLOOD COUNT 9.1 10^3/uL (4.0-10.0)
[2022-11-11 06:51] LABS: BLOOD UREA NITROGEN 11 MG/DL (9-23); CALCIUM LEVEL 9.4 MG/DL (8.5-10.1); CARBON DIOXIDE LEVEL 28 MMOL/L (20-31); CHLORIDE LEVEL 103 MMOL/L (98-107); CREATININE FOR GFR 0.66 MG/DL (0.55-1.30); GLOMERULAR FILTRATION RATE > 60.0 (>51); GLUCOSE, FASTING 96 MG/DL (60-100); POTASSIUM SERUM 3.6 MMOL/L (3.5-5.1); SODIUM LEVEL 138 MMOL/L (136-145)
[2022-11-11] MEDS: ALBUTEROL SULFATE 2.5MG/0.5ML INH NEB SOLN INH SCH ×4 (07:18→20:46)
[2022-11-11] MEDS: predniSONE 10MG TAB PO SCH (08:13)
[2022-11-11] MEDS: FAMOTIDINE 20 MG TAB PO SCH ×2 (08:13→21:16)
[2022-11-11] MEDS: ramipriL 5 MG CAP PO SCH ×2 (08:15→21:23)
[2022-11-11 14:00] VITALS: BP 112/64; TEMP 97; O2SAT 93
[2022-11-11 21:11] VITALS: BP 134/82
[2022-11-11] MEDS: METOPROLOL SUCC (TopROL XL) 50MG **XL** TAB PO SCH (21:16)
[2022-11-11] MEDS: ONDANSETRON 4MG ORAL DISINTEGRATING TAB PO PRN (21:16)
[2022-11-11 21:31] VITALS: BP 112/68; TEMP 97.3; O2SAT 93
[2022-11-12 05:10] VITALS: BP 112/75; TEMP 97.9; O2SAT 97
[2022-11-12] MEDS: HEPARIN SOD (PORCINE) 5000UNITS/ML 1ML VIAL/SYRINGE SC SCH ×2 (05:14→14:00)
[2022-11-12 06:16] LABS: HEMATOCRIT 37.1 % (36.0-47.0); HEMOGLOBIN 11.6 g/dl (12.0-15.5); MEAN CORPUSCULAR HGB CONC 31.3 g/dl (32.0-36.5); MEAN CORPUSCULAR VOLUME 83.2 fl (80.0-96.0); PLATELET COUNT, AUTOMATED 286 10^3/uL (150-450); RED BLOOD COUNT 4.46 10^6/uL (4.00-5.40); WHITE BLOOD COUNT 9.4 10^3/uL (4.0-10.0)
[2022-11-12 06:56] LABS: BLOOD UREA NITROGEN 14 MG/DL (9-23); CALCIUM LEVEL 8.7 MG/DL (8.5-10.1); CARBON DIOXIDE LEVEL 28 MMOL/L (20-31); CHLORIDE LEVEL 104 MMOL/L (98-107); CREATININE FOR GFR 0.71 MG/DL (0.55-1.30); GLOMERULAR FILTRATION RATE > 60.0 (>51); GLUCOSE, FASTING 108 MG/DL (60-100); POTASSIUM SERUM 3.7 MMOL/L (3.5-5.1); SODIUM LEVEL 139 MMOL/L (136-145)
[2022-11-12] MEDS: ALBUTEROL SULFATE 2.5MG/0.5ML INH NEB SOLN INH SCH ×2 (07:14→11:13)
[2022-11-12 08:07] VITALS: BP 136/82
[2022-11-12] MEDS: ramipriL 5 MG CAP PO SCH (08:07)
[2022-11-12] MEDS: NORCO, ANEXSIA 5/325MG TABLET (HYDROcodone/ACETAMINOPHEN) PO PRN (08:08)
[2022-11-12] MEDS: predniSONE 10MG TAB PO SCH (08:09)
[2022-11-12] MEDS: FAMOTIDINE 20 MG TAB PO SCH (08:09)
[2022-11-12] MEDS ORDERED: HYDR-3713 PO (10:12)
== END 2022-11-12 14:10 | disposition home or self-care (01) ==
LOC: M ED 19:26 → M ED INP 19:27 → UNDOADMOB 11-10 03:02 → M ED INP 11-10 03:02 → M MS5PR 11-10 14:40 → M ED INP 11-10 14:40 → UNDODISOB 11-12 14:10
PROVIDERS: ADMIT Internal Medicine; ATTEND Internal Medicine
DX: S22.41XA Multiple fractures of ribs, right side, initial encounter for closed fracture (principal); W01.198A Fall on same level from slipping, tripping and stumbling with subsequent striking against other object, initial encounter; Y92.091 Bathroom in other non-institutional residence as the place of occurrence of the external cause; R07.1 Chest pain on breathing; I10 Essential (primary) hypertension; F32.A Depression, unspecified; K50.911 Crohn's disease, unspecified, with rectal bleeding; J45.909 Unspecified asthma, uncomplicated; Z88.0 Allergy status to penicillin; Z88.5 Allergy status to narcotic agent; Z91.011 Allergy to milk products; Z91.02 Food additives allergy status; Z91.030 Bee allergy status; Z79.899 Other long term (current) drug therapy; Z79.52 Long term (current) use of systemic steroids
CPT/HCPCS: 36415; 71260; 73060; 73110; 73590; 74177; 80047; 80048; 80053; 80076; 83690; 85025; 85027; 85610; 85730; 86850; 86900; 86901; 87635; 94640; 96372; 96374; 96375; 96376; 97161; 97165; 97530; 97535; 99284; J2405; J7512; Q9967

== ENCOUNTER → 2022-11-29 | Outpatient (CLI) | payer OTHER ==
[~2022-11-29] MED LIST changes: +HYDR-3713 PO
== END ==
LOC: M WHC 08:45
PROVIDERS: ATTEND Physician Assistant
DX: Z12.31 Encounter for screening mammogram for malignant neoplasm of breast (principal)

== ENCOUNTER 2022-12-16 08:35 | Outpatient (CLI) | payer OTHER ==
[~2022-12-16] VITALS: Ht 167.6 cm; Wt 120.0 kg
[2022-12-16 08:43] VITALS: BP 158/78; O2SAT 97
[2022-12-16] MEDS ORDERED: VEDOLIZUMAB 300 MG in NS 250 ML IV ONE (09:00)
== END 2022-12-16 10:05 | disposition home or self-care (01) ==
LOC: M INFU 08:35
PROVIDERS: ATTEND Internal Medicine Gastroenterology
DX: K51.90 Ulcerative colitis, unspecified, without complications (principal); Z88.0 Allergy status to penicillin; Z88.8 Allergy status to other drugs, medicaments and biological substances
CPT/HCPCS: 96365; J3380

== ENCOUNTER → 2023-01-07 | Outpatient (CLI) | payer OTHER ==
[2023-01-07 13:46] LABS: BASO # 0.1 10^3/uL (0.0-0.2); BASO % 1.3 % (0.0-1.0); EOS # 0.6 10^3/uL (0.0-0.5); EOS % 5.8 % (0.0-3.0); HEMATOCRIT 39.4 % (36.0-47.0); HEMOGLOBIN 11.9 g/dl (12.0-15.5); LYMPH # 2.2 10^3/uL (1.5-5.0); LYMPH % 20.5 % (24.0-44.0); MEAN CORPUSCULAR HEMOGLOBIN 25.2 pg (27.0-33.0); MEAN CORPUSCULAR HGB CONC 30.2 g/dl (32.0-36.5); MEAN CORPUSCULAR VOLUME 83.3 fl (80.0-96.0); MONO # 1.2 10^3/uL (0.0-0.8); MONO % 11.4 % (2.0-8.0); NEUTROPHILS # 6.5 10^3/uL (1.5-8.5); NEUTROPHILS % 59.6 % (36.0-66.0); PLATELET COUNT, AUTOMATED 416 10^3/uL (150-450); RED BLOOD COUNT 4.73 10^6/uL (4.00-5.40); WHITE BLOOD COUNT 10.9 10^3/uL (4.0-10.0)
[2023-01-07 14:07] LABS: ALBUMIN 2.9 G/DL (3.2-5.2); ALKALINE PHOSPHATASE 74 U/L (46-116); ALT/SGPT 15 U/L (7.0-40); AST/SGOT < 8 U/L (<34); BILIRUBIN,TOTAL 0.8 MG/DL (0.3-1.2); BLOOD UREA NITROGEN 7 MG/DL (9-23); CALCIUM LEVEL 8.9 MG/DL (8.5-10.1); CARBON DIOXIDE LEVEL 25 MMOL/L (20-31); CHLORIDE LEVEL 104 MMOL/L (98-107); CREATININE FOR GFR 0.75 MG/DL (0.55-1.30); ERYTHROCYTE SEDIMENTATION RATE 88 mm/hr (0-30); GLOMERULAR FILTRATION RATE > 60.0 (>51); GLUCOSE, FASTING 114 MG/DL (60-100); POTASSIUM SERUM 3.6 MMOL/L (3.5-5.1); SODIUM LEVEL 138 MMOL/L (136-145); TOTAL PROTEIN 6.7 G/DL (5.7-8.2)
== END ==
LOC: M PLALAB 09:44
PROVIDERS: ATTEND Internal Medicine Rheumatology
DX: M25.50 Pain in unspecified joint (principal); K50.811 Crohn's disease of both small and large intestine with rectal bleeding; M65.30 Trigger finger, unspecified finger; M15.9 Polyosteoarthritis, unspecified

== ENCOUNTER → 2023-02-11 | Outpatient (CLI) | payer OTHER ==
[~2023-02-11] VITALS: Ht 167.6 cm; Wt 120.0 kg
[~2023-02-11] MED LIST changes: +VEDOLIZUMAB 300 MG in NS 250 ML IV ONE
[2023-02-11 15:46] VITALS: BP 129/86; O2SAT 97
[2023-02-11 16:58] VITALS: BP 126/85; O2SAT 98
== END ==
LOC: M INFU 15:52
PROVIDERS: ATTEND Internal Medicine Gastroenterology
DX: K51.90 Ulcerative colitis, unspecified, without complications (principal); Z88.0 Allergy status to penicillin; Z88.8 Allergy status to other drugs, medicaments and biological substances
CPT/HCPCS: 96365; J3380

== ENCOUNTER → 2023-02-25 | Outpatient (CLI) | payer OTHER ==
[~2023-02-25] MED LIST changes: -VEDOLIZUMAB 300 MG in NS 250 ML IV ONE
== END ==
LOC: M PLAIMG 12:17
PROVIDERS: ATTEND Internal Medicine Hematology
DX: M79.671 Pain in right foot (principal)

== ENCOUNTER 2023-04-09 14:10 | Outpatient (CLI) | payer OTHER ==
[~2023-04-09] VITALS: Ht 165.1 cm; Wt 122.0 kg
[~2023-04-09 14:10] MED LIST changes: -BIOT50004 PO; +BIOT5CAP8 PO; -FLUT50SP17; +FLUTISP
[2023-04-09 14:30] VITALS: BP 141/88; O2SAT 94
[2023-04-09] MEDS ORDERED: VEDOLIZUMAB 300 MG in NS 250 ML IV ONE (14:30)
[2023-04-09 16:01] VITALS: BP 139/88; O2SAT 96
== END 2023-04-09 16:10 | disposition home or self-care (01) ==
LOC: M INFU 14:10
PROVIDERS: ATTEND Internal Medicine Gastroenterology
DX: K51.90 Ulcerative colitis, unspecified, without complications (principal); Z88.0 Allergy status to penicillin; Z88.1 Allergy status to other antibiotic agents; Z88.8 Allergy status to other drugs, medicaments and biological substances
CPT/HCPCS: 96365; J3380

== ENCOUNTER → 2023-05-01 | Outpatient (CLI) | payer OTHER ==
[2023-05-01 16:33] LABS: BASO # 0.1 10^3/uL (0.0-0.2); BASO % 1.2 % (0.0-1.0); EOS # 0.5 10^3/uL (0.0-0.5); EOS % 4.9 % (0.0-3.0); HEMATOCRIT 39.1 % (36.0-47.0); LYMPH # 2.1 10^3/uL (1.5-5.0); LYMPH % 21.5 % (24.0-44.0); MEAN CORPUSCULAR HEMOGLOBIN 24.5 pg (27.0-33.0); MEAN CORPUSCULAR HGB CONC 30.7 g/dl (32.0-36.5); MEAN CORPUSCULAR VOLUME 79.8 fl (80.0-96.0); MONO # 0.9 10^3/uL (0.0-0.8); MONO % 8.9 % (2.0-8.0); NEUTROPHILS # 6.3 10^3/uL (1.5-8.5); NEUTROPHILS % 63.1 % (36.0-66.0); PLATELET COUNT, AUTOMATED 373 10^3/uL (150-450)
[2023-05-01 17:03] LABS: ALBUMIN 3.3 G/DL (3.2-5.2); ALKALINE PHOSPHATASE 74 U/L (46-116); ALT/SGPT 15 U/L (7.0-40); AST/SGOT 13 U/L (<34); BILIRUBIN,TOTAL 0.8 MG/DL (0.3-1.2); BLOOD UREA NITROGEN 18 MG/DL (9-23); CALCIUM LEVEL 9.5 MG/DL (8.5-10.1); CARBON DIOXIDE LEVEL 26 MMOL/L (20-31); CHLORIDE LEVEL 105 MMOL/L (98-107); CREATININE FOR GFR 0.76 MG/DL (0.55-1.30); GLOMERULAR FILTRATION RATE > 60.0 (>51); GLUCOSE, FASTING 112 MG/DL (60-100); IRON (FE) 40 UG/DL (50-170); POTASSIUM SERUM 4.6 MMOL/L (3.5-5.1); SODIUM LEVEL 137 MMOL/L (136-145); TOTAL PROTEIN 6.9 G/DL (5.7-8.2)
== END ==
LOC: M PLALAB 14:29
PROVIDERS: ATTEND Internal Medicine Hematology
DX: D64.9 Anemia, unspecified (principal)

== ENCOUNTER 2023-05-15 13:30 | Outpatient (RCR) | payer OTHER | END 2023-05-28 | LOC: M PT 13:30 | PROVIDERS: ATTEND Orthopaedic Surgery | DX: Z96.642 Presence of left artificial hip joint (principal) ==

== ENCOUNTER 2023-05-18 11:43 | Emergency (ER) | payer OTHER ==
[~2023-05-18] VITALS: Ht 167.6 cm; Wt 127.2 kg
[2023-05-18 13:52] LABS: BASO # 0.1 10^3/uL (0.0-0.2); EOS # 0.5 10^3/uL (0.0-0.5); EOS % 5.1 % (0.0-3.0); HEMATOCRIT 29.9 % (36.0-47.0); HEMOGLOBIN 9.7 g/dl (12.0-15.5); LYMPH # 1.5 10^3/uL (1.5-5.0); LYMPH % 15.5 % (24.0-44.0); MEAN CORPUSCULAR HEMOGLOBIN 25.6 pg (27.0-33.0); MEAN CORPUSCULAR HGB CONC 32.4 g/dl (32.0-36.5); MEAN CORPUSCULAR VOLUME 78.9 fl (80.0-96.0); MONO # 0.8 10^3/uL (0.0-0.8); MONO % 8.5 % (2.0-8.0); NEUTROPHILS # 6.4 10^3/uL (1.5-8.5); NEUTROPHILS % 68.6 % (36.0-66.0); PLATELET COUNT, AUTOMATED 457 10^3/uL (150-450); RED BLOOD COUNT 3.79 10^6/uL (4.00-5.40); WHITE BLOOD COUNT 9.3 10^3/uL (4.0-10.0)
[2023-05-18 13:57] LABS: ERYTHROCYTE SEDIMENTATION RATE 86 mm/hr (0-30)
[2023-05-18] MEDS ORDERED: ACETAMINOPHEN TAB 650MG DOSE (2X325MG) PO ONE (16:50)
[2023-05-18 20:55] VITALS: BP 122/71; TEMP 98.8; O2SAT 97
== END 2023-05-18 21:02 | disposition short-term general hospital (02) ==
LOC: M ED 11:43
DX: T88.9XXA Complication of surgical and medical care, unspecified, initial encounter (principal); M25.552 Pain in left hip; I10 Essential (primary) hypertension; K50.90 Crohn's disease, unspecified, without complications; Z98.890 Other specified postprocedural states; Z88.1 Allergy status to other antibiotic agents; Z88.8 Allergy status to other drugs, medicaments and biological substances; Z79.899 Other long term (current) drug therapy

== ENCOUNTER → 2023-06-02 | Outpatient (REF) | payer OTHER ==
[2023-06-02 12:00] LABS: HEMATOCRIT 29.9 % (36.0-47.0); HEMOGLOBIN 8.6 g/dl (12.0-15.5); MEAN CORPUSCULAR HEMOGLOBIN 23.4 pg (27.0-33.0); MEAN CORPUSCULAR HGB CONC 28.8 g/dl (32.0-36.5); MEAN CORPUSCULAR VOLUME 81.5 fl (80.0-96.0); PLATELET COUNT, AUTOMATED 459 10^3/uL (150-450); RED BLOOD COUNT 3.67 10^6/uL (4.00-5.40); WHITE BLOOD COUNT 6.4 10^3/uL (4.0-10.0)
[2023-06-02 12:05] LABS: ERYTHROCYTE SEDIMENTATION RATE 97 mm/hr (0-30)
[2023-06-02 12:33] LABS: ALBUMIN 2.7 G/DL (3.2-5.2); ALKALINE PHOSPHATASE 137 U/L (46-116); ALT/SGPT 11 U/L (7.0-40); AST/SGOT 14 U/L (<34); BILIRUBIN,TOTAL 0.5 MG/DL (0.3-1.2); BLOOD UREA NITROGEN 10 MG/DL (9-23); CALCIUM LEVEL 8.7 MG/DL (8.5-10.1); CARBON DIOXIDE LEVEL 26 MMOL/L (20-31); CHLORIDE LEVEL 107 MMOL/L (98-107); CREATININE FOR GFR 0.68 MG/DL (0.55-1.30); GLOMERULAR FILTRATION RATE > 60.0 (>51); GLUCOSE, FASTING 105 MG/DL (60-100); POTASSIUM SERUM 4.1 MMOL/L (3.5-5.1); SODIUM LEVEL 141 MMOL/L (136-145); TOTAL PROTEIN 6.3 G/DL (5.7-8.2)
== END ==
LOC: M LABDRAWC 11:31 → M LAB REF 11:31
PROVIDERS: ATTEND Internal Medicine Infectious Disease
DX: T84.52XA Infection and inflammatory reaction due to internal left hip prosthesis, initial encounter (principal); Y83.1 Surgical operation with implant of artificial internal device as the cause of abnormal reaction of the patient, or of later complication, without mention of misadventure at the time of the procedure

== ENCOUNTER 2023-06-03 15:30 | Outpatient (CLI) | payer OTHER ==
[~2023-06-03 15:30] MED LIST changes: +ALBUTEROL SULFATE 2.5MG/0.5ML INH NEB SOLN INH PRN; +EPINEPHrine INJ 1 MG/ML 1ML AMP IM PRN; +diphenhydrAMINE 50MG/ML VIAL IV PRN; +methylPREDNISolone 125MG 2ML VIAL IV PRN
[2023-06-03] MEDS ORDERED: NS 1,000 ML IV SCH (15:35)
[2023-06-03 16:00] VITALS: BP 108/67; O2SAT 98
[2023-06-03] MEDS: IRON SUCROSE 200 MG in NS 100 ML OVER 1 HR IV ONE (16:04)
[2023-06-03 17:04] VITALS: BP 120/74; O2SAT 96
== END 2023-06-03 17:05 ==
LOC: M INFU 15:30
PROVIDERS: ATTEND Internal Medicine Hematology
DX: D50.9 Iron deficiency anemia, unspecified (principal); Z88.0 Allergy status to penicillin; Z88.1 Allergy status to other antibiotic agents; Z88.8 Allergy status to other drugs, medicaments and biological substances
CPT/HCPCS: 96365; J1756

== ENCOUNTER 2023-06-10 15:15 | Outpatient (CLI) | payer OTHER ==
[~2023-06-10] VITALS: Ht 170.2 cm; Wt 124.0 kg
[2023-06-10 15:16] VITALS: BP 121/67; O2SAT 99
[2023-06-10] MEDS ORDERED: NS 1,000 ML IV SCH (15:30)
[2023-06-10] MEDS: IRON SUCROSE 200 MG in NS 100 ML OVER 1HR IV ONE (15:36)
[2023-06-10 16:42] VITALS: BP 126/69; O2SAT 96
== END 2023-06-10 16:50 ==
LOC: M INFU 15:15
PROVIDERS: ATTEND Internal Medicine Hematology
DX: D50.9 Iron deficiency anemia, unspecified (principal); Z88.1 Allergy status to other antibiotic agents; Z88.0 Allergy status to penicillin; Z88.8 Allergy status to other drugs, medicaments and biological substances
CPT/HCPCS: 96365; J1756

== ENCOUNTER → 2023-06-16 | Outpatient (REF) | payer OTHER ==
[~2023-06-16] MED LIST changes: -ALBUTEROL SULFATE 2.5MG/0.5ML INH NEB SOLN INH PRN; -EPINEPHrine INJ 1 MG/ML 1ML AMP IM PRN; -diphenhydrAMINE 50MG/ML VIAL IV PRN; -methylPREDNISolone 125MG 2ML VIAL IV PRN
[2023-06-16 16:22] LABS: BASO # 0.1 10^3/uL (0.0-0.2); BASO % 1.3 % (0.0-1.0); EOS # 0.2 10^3/uL (0.0-0.5); EOS % 3.2 % (0.0-3.0); HEMATOCRIT 36.6 % (36.0-47.0); HEMOGLOBIN 10.7 g/dl (12.0-15.5); LYMPH # 1.6 10^3/uL (1.5-5.0); LYMPH % 23.3 % (24.0-44.0); MEAN CORPUSCULAR HEMOGLOBIN 23.6 pg (27.0-33.0); MEAN CORPUSCULAR HGB CONC 29.2 g/dl (32.0-36.5); MEAN CORPUSCULAR VOLUME 80.8 fl (80.0-96.0); MONO # 0.6 10^3/uL (0.0-0.8); MONO % 8.1 % (2.0-8.0); NEUTROPHILS # 4.4 10^3/uL (1.5-8.5); NEUTROPHILS % 63.7 % (36.0-66.0); PLATELET COUNT, AUTOMATED 338 10^3/uL (150-450); RED BLOOD COUNT 4.53 10^6/uL (4.00-5.40)
[2023-06-16 16:34] LABS: ERYTHROCYTE SEDIMENTATION RATE 81 mm/hr (0-30)
[2023-06-16 16:38] LABS: ALBUMIN 3.4 G/DL (3.2-5.2); ALKALINE PHOSPHATASE 117 U/L (46-116); ALT/SGPT 25 U/L (7.0-40); AST/SGOT 23 U/L (<34); BILIRUBIN,TOTAL 0.7 MG/DL (0.3-1.2); BLOOD UREA NITROGEN 18 MG/DL (9-23); CALCIUM LEVEL 9.2 MG/DL (8.5-10.1); CARBON DIOXIDE LEVEL 26 MMOL/L (20-31); CHLORIDE LEVEL 105 MMOL/L (98-107); CREATININE FOR GFR 0.68 MG/DL (0.55-1.30); GLOMERULAR FILTRATION RATE > 60.0 (>51); GLUCOSE, FASTING 101 MG/DL (60-100); POTASSIUM SERUM 4.3 MMOL/L (3.5-5.1); SODIUM LEVEL 139 MMOL/L (136-145); TOTAL PROTEIN 7.3 G/DL (5.7-8.2)
== END ==
LOC: M SHH 15:20
PROVIDERS: ATTEND Internal Medicine Infectious Disease
DX: A49.8 Other bacterial infections of unspecified site (principal); T84.52XA Infection and inflammatory reaction due to internal left hip prosthesis, initial encounter; Y83.8 Other surgical procedures as the cause of abnormal reaction of the patient, or of later complication, without mention of misadventure at the time of the procedure

== ENCOUNTER 2023-06-17 15:15 | Outpatient (CLI) | payer OTHER ==
[2023-06-17 15:14] VITALS: BP 131/66; O2SAT 98
[~2023-06-17 15:15] MED LIST changes: +ALBUTEROL SULFATE 2.5MG/0.5ML INH NEB SOLN INH PRN; +EPINEPHrine INJ 1 MG/ML 1ML AMP IM PRN; +NS 1,000 ML IV SCH; +diphenhydrAMINE 50MG/ML VIAL IV PRN; +methylPREDNISolone 125MG 2ML VIAL IV PRN
[2023-06-17] MEDS: IRON SUCROSE 200 MG in NS 100 ML IV ONE (15:29)
[2023-06-17 16:26] VITALS: BP 127/85; O2SAT 96
== END 2023-06-17 16:40 ==
LOC: M INFU 15:15
PROVIDERS: ATTEND Internal Medicine Hematology
DX: D50.9 Iron deficiency anemia, unspecified (principal); Z88.1 Allergy status to other antibiotic agents; Z88.8 Allergy status to other drugs, medicaments and biological substances; Z91.030 Bee allergy status; Z91.011 Allergy to milk products
CPT/HCPCS: 96365; J1756

== ENCOUNTER → 2023-06-23 | Outpatient (REF) | payer OTHER ==
[~2023-06-23] MED LIST changes: -ALBUTEROL SULFATE 2.5MG/0.5ML INH NEB SOLN INH PRN; -EPINEPHrine INJ 1 MG/ML 1ML AMP IM PRN; -NS 1,000 ML IV SCH; -diphenhydrAMINE 50MG/ML VIAL IV PRN; -methylPREDNISolone 125MG 2ML VIAL IV PRN
[2023-06-23 13:12] LABS: BASO # 0.1 10^3/uL (0.0-0.2); BASO % 1.1 % (0.0-1.0); EOS # 0.4 10^3/uL (0.0-0.5); HEMATOCRIT 35.3 % (36.0-47.0); HEMOGLOBIN 10.5 g/dl (12.0-15.5); LYMPH # 1.4 10^3/uL (1.5-5.0); LYMPH % 19.3 % (24.0-44.0); MEAN CORPUSCULAR HEMOGLOBIN 23.9 pg (27.0-33.0); MEAN CORPUSCULAR HGB CONC 29.7 g/dl (32.0-36.5); MEAN CORPUSCULAR VOLUME 80.2 fl (80.0-96.0); MONO # 0.6 10^3/uL (0.0-0.8); MONO % 8.3 % (2.0-8.0); NEUTROPHILS # 4.8 10^3/uL (1.5-8.5); PLATELET COUNT, AUTOMATED 299 10^3/uL (150-450); WHITE BLOOD COUNT 7.3 10^3/uL (4.0-10.0)
[2023-06-23 13:18] LABS: ERYTHROCYTE SEDIMENTATION RATE 78 mm/hr (0-30)
[2023-06-23 14:06] LABS: ALKALINE PHOSPHATASE 101 U/L (46-116); ALT/SGPT 31 U/L (7.0-40); AST/SGOT 30 U/L (<34); BILIRUBIN,TOTAL 0.6 MG/DL (0.3-1.2); BLOOD UREA NITROGEN 13 MG/DL (9-23); CALCIUM LEVEL 9.2 MG/DL (8.5-10.1); CARBON DIOXIDE LEVEL 26 MMOL/L (20-31); CHLORIDE LEVEL 105 MMOL/L (98-107); CREATININE FOR GFR 0.67 MG/DL (0.55-1.30); GLOMERULAR FILTRATION RATE > 60.0 (>51); GLUCOSE, FASTING 101 MG/DL (60-100); POTASSIUM SERUM 4.4 MMOL/L (3.5-5.1); SODIUM LEVEL 138 MMOL/L (136-145); TOTAL PROTEIN 6.7 G/DL (5.7-8.2)
== END ==
LOC: M SHH 12:36
PROVIDERS: ATTEND Internal Medicine Infectious Disease
DX: A49.8 Other bacterial infections of unspecified site (principal); T84.52XA Infection and inflammatory reaction due to internal left hip prosthesis, initial encounter; Y83.8 Other surgical procedures as the cause of abnormal reaction of the patient, or of later complication, without mention of misadventure at the time of the procedure

== ENCOUNTER → 2023-06-30 | Outpatient (REF) | payer OTHER ==
[2023-06-30 16:18] LABS: BASO # 0.1 10^3/uL (0.0-0.2); BASO % 0.8 % (0.0-1.0); EOS # 0.1 10^3/uL (0.0-0.5); EOS % 1.7 % (0.0-3.0); HEMATOCRIT 40.4 % (36.0-47.0); HEMOGLOBIN 12.1 g/dl (12.0-15.5); LYMPH # 1.2 10^3/uL (1.5-5.0); LYMPH % 15.2 % (24.0-44.0); MEAN CORPUSCULAR HEMOGLOBIN 23.9 pg (27.0-33.0); MEAN CORPUSCULAR VOLUME 79.7 fl (80.0-96.0); MONO # 0.7 10^3/uL (0.0-0.8); MONO % 8.6 % (2.0-8.0); NEUTROPHILS # 5.7 10^3/uL (1.5-8.5); NEUTROPHILS % 73.3 % (36.0-66.0); PLATELET COUNT, AUTOMATED 346 10^3/uL (150-450); RED BLOOD COUNT 5.07 10^6/uL (4.00-5.40); WHITE BLOOD COUNT 7.8 10^3/uL (4.0-10.0)
[2023-06-30 16:42] LABS: ERYTHROCYTE SEDIMENTATION RATE 98 mm/hr (0-30)
[2023-06-30 17:06] LABS: ALBUMIN 3.5 G/DL (3.2-5.2); ALKALINE PHOSPHATASE 104 U/L (46-116); ALT/SGPT 28 U/L (7.0-40); AST/SGOT 18 U/L (<34); BLOOD UREA NITROGEN 19 MG/DL (9-23); CALCIUM LEVEL 8.7 MG/DL (8.5-10.1); CARBON DIOXIDE LEVEL 27 MMOL/L (20-31); CHLORIDE LEVEL 104 MMOL/L (98-107); GLOMERULAR FILTRATION RATE > 60.0 (>51); GLUCOSE, FASTING 110 MG/DL (60-100); POTASSIUM SERUM 4.5 MMOL/L (3.5-5.1); SODIUM LEVEL 138 MMOL/L (136-145); TOTAL PROTEIN 7.4 G/DL (5.7-8.2)
== END ==
LOC: M SHH 15:27
PROVIDERS: ATTEND Internal Medicine Infectious Disease
DX: A49.8 Other bacterial infections of unspecified site (principal); T84.52XA Infection and inflammatory reaction due to internal left hip prosthesis, initial encounter; Y83.8 Other surgical procedures as the cause of abnormal reaction of the patient, or of later complication, without mention of misadventure at the time of the procedure

== ENCOUNTER → 2023-07-07 | Outpatient (REF) | payer OTHER ==
[2023-07-07 16:36] LABS: BASO # 0.1 10^3/uL (0.0-0.2); EOS # 0.5 10^3/uL (0.0-0.5); EOS % 6.5 % (0.0-3.0); HEMATOCRIT 36.6 % (36.0-47.0); HEMOGLOBIN 10.8 g/dl (12.0-15.5); LYMPH # 1.7 10^3/uL (1.5-5.0); LYMPH % 25.1 % (24.0-44.0); MEAN CORPUSCULAR HEMOGLOBIN 23.7 pg (27.0-33.0); MEAN CORPUSCULAR HGB CONC 29.5 g/dl (32.0-36.5); MEAN CORPUSCULAR VOLUME 80.4 fl (80.0-96.0); MONO # 0.6 10^3/uL (0.0-0.8); MONO % 8.1 % (2.0-8.0); NEUTROPHILS # 4.1 10^3/uL (1.5-8.5); NEUTROPHILS % 58.9 % (36.0-66.0); PLATELET COUNT, AUTOMATED 336 10^3/uL (150-450); RED BLOOD COUNT 4.55 10^6/uL (4.00-5.40); WHITE BLOOD COUNT 6.9 10^3/uL (4.0-10.0)
[2023-07-07 16:55] LABS: ERYTHROCYTE SEDIMENTATION RATE 45 mm/hr (0-30)
[2023-07-07 16:58] LABS: ALBUMIN 3.1 G/DL (3.2-5.2); ALKALINE PHOSPHATASE 95 U/L (46-116); ALT/SGPT 27 U/L (7.0-40); AST/SGOT 17 U/L (<34); BILIRUBIN,TOTAL 0.3 MG/DL (0.3-1.2); BLOOD UREA NITROGEN 14 MG/DL (9-23); CALCIUM LEVEL 8.4 MG/DL (8.5-10.1); CARBON DIOXIDE LEVEL 26 MMOL/L (20-31); CHLORIDE LEVEL 106 MMOL/L (98-107); CREATININE FOR GFR 0.67 MG/DL (0.55-1.30); GLOMERULAR FILTRATION RATE > 60.0 (>51); GLUCOSE, FASTING 123 MG/DL (60-100); SODIUM LEVEL 140 MMOL/L (136-145); TOTAL PROTEIN 6.5 G/DL (5.7-8.2)
== END ==
LOC: M SHH 15:54
PROVIDERS: ATTEND Internal Medicine Infectious Disease
DX: A49.8 Other bacterial infections of unspecified site (principal); T84.52XA Infection and inflammatory reaction due to internal left hip prosthesis, initial encounter

== ENCOUNTER 2023-08-11 12:17 | Outpatient (CLI) | payer OTHER ==
[~2023-08-11] VITALS: Ht 167.6 cm; Wt 119.5 kg
[2023-08-11 12:30] VITALS: BP 161/94; O2SAT 96
[2023-08-11] MEDS: VEDOLIZUMAB 300 MG in NS 250 ML IV ONE (12:57)
[2023-08-11 13:55] VITALS: BP 156/90; O2SAT 96
== END 2023-08-11 13:55 ==
LOC: M INFU 12:17
PROVIDERS: ATTEND Internal Medicine Gastroenterology
DX: K51.919 Ulcerative colitis, unspecified with unspecified complications (principal); Z88.0 Allergy status to penicillin; Z88.1 Allergy status to other antibiotic agents; Z88.8 Allergy status to other drugs, medicaments and biological substances
CPT/HCPCS: 96365; J3380

== ENCOUNTER → 2023-09-04 | Outpatient (CLI) | payer OTHER ==
[~2023-09-04] MED LIST changes: +BUPR-597 PO; -BUPR300T92 PO; -RAMI1CAP24 PO; +RAMI5CAP60 PO
[2023-09-04 16:01] LABS: BASO # 0.1 10^3/uL (0.0-0.2); EOS # 0.3 10^3/uL (0.0-0.5); EOS % 2.8 % (0.0-3.0); HEMATOCRIT 43.6 % (36.0-47.0); HEMOGLOBIN 13.5 g/dl (12.0-15.5); LYMPH # 2.3 10^3/uL (1.5-5.0); LYMPH % 21.7 % (24.0-44.0); MEAN CORPUSCULAR HEMOGLOBIN 24.4 pg (27.0-33.0); MEAN CORPUSCULAR VOLUME 78.8 fl (80.0-96.0); MONO # 0.8 10^3/uL (0.0-0.8); PLATELET COUNT, AUTOMATED 330 10^3/uL (150-450); RED BLOOD COUNT 5.53 10^6/uL (4.00-5.40); WHITE BLOOD COUNT 10.5 10^3/uL (4.0-10.0)
[2023-09-04 16:06] LABS: ERYTHROCYTE SEDIMENTATION RATE 62 mm/hr (0-30)
== END ==
LOC: M PLALAB 13:34
PROVIDERS: ATTEND Internal Medicine Infectious Disease
DX: A49.8 Other bacterial infections of unspecified site (principal)

== ENCOUNTER 2023-10-06 12:40 | Outpatient (CLI) | payer OTHER ==
[~2023-10-06] VITALS: Ht 170.2 cm; Wt 136.4 kg
[2023-10-06 12:40] VITALS: BP 147/78; O2SAT 97
[2023-10-06] MEDS: VEDOLIZUMAB 300 MG in NS 250 ML IV ONE (14:24)
[2023-10-06 15:00] VITALS: BP 151/84; O2SAT 95
== END 2023-10-06 15:00 ==
LOC: M INFU 12:40
PROVIDERS: ATTEND Internal Medicine Gastroenterology
DX: K51.90 Ulcerative colitis, unspecified, without complications (principal); Z88.1 Allergy status to other antibiotic agents; Z88.8 Allergy status to other drugs, medicaments and biological substances; Z91.030 Bee allergy status

== ENCOUNTER → 2023-12-08 | Outpatient (CLI) | payer OTHER ==
[2023-12-08 15:44] LABS: BASO # 0.1 10^3/uL (0.0-0.2); BASO % 1.1 % (0.0-1.0); EOS # 0.6 10^3/uL (0.0-0.5); EOS % 5.3 % (0.0-3.0); HEMATOCRIT 44.2 % (36.0-47.0); HEMOGLOBIN 13.6 g/dl (12.0-15.5); LYMPH # 2.1 10^3/uL (1.5-5.0); MEAN CORPUSCULAR HEMOGLOBIN 24.8 pg (27.0-33.0); MEAN CORPUSCULAR HGB CONC 30.8 g/dl (32.0-36.5); MEAN CORPUSCULAR VOLUME 80.5 fl (80.0-96.0); MONO # 0.9 10^3/uL (0.0-0.8); MONO % 8.7 % (2.0-8.0); NEUTROPHILS # 6.6 10^3/uL (1.5-8.5); NEUTROPHILS % 64.4 % (36.0-66.0); PLATELET COUNT, AUTOMATED 341 10^3/uL (150-450); RED BLOOD COUNT 5.49 10^6/uL (4.00-5.40); WHITE BLOOD COUNT 10.3 10^3/uL (4.0-10.0)
[2023-12-08 15:49] LABS: ERYTHROCYTE SEDIMENTATION RATE 78 mm/hr (0-30)
[2023-12-08 16:08] LABS: ALBUMIN 3.4 G/DL (3.2-5.2); ALKALINE PHOSPHATASE 112 U/L (46-116); ALT/SGPT 18 U/L (7.0-40); AST/SGOT 13 U/L (<34); BLOOD UREA NITROGEN 12 MG/DL (9-23); CALCIUM LEVEL 9.4 MG/DL (8.5-10.1); CARBON DIOXIDE LEVEL 28 MMOL/L (20-31); CHLORIDE LEVEL 105 MMOL/L (98-107); CREATININE FOR GFR 0.72 MG/DL (0.55-1.30); GLOMERULAR FILTRATION RATE > 60.0 (>51); GLUCOSE, FASTING 158 MG/DL (60-100); POTASSIUM SERUM 4.2 MMOL/L (3.5-5.1); SODIUM LEVEL 139 MMOL/L (136-145); TOTAL PROTEIN 7.3 G/DL (5.7-8.2)
== END ==
LOC: M PLAIMG 14:13
PROVIDERS: ATTEND Internal Medicine Infectious Disease
DX: R09.02 Hypoxemia (principal); A49.8 Other bacterial infections of unspecified site; T84.52XA Infection and inflammatory reaction due to internal left hip prosthesis, initial encounter

== ENCOUNTER 2024-01-06 10:37 | Outpatient (CLI) | payer OTHER ==
[~2024-01-06] VITALS: Ht 170.2 cm; Wt 136.0 kg
[~2024-01-06 10:37] MED LIST changes: +VEDOLIZUMAB 300 MG in NS 250 ML IV ONE
[2024-01-06 11:05] VITALS: BP 142/85; O2SAT 96
[2024-01-06] MEDS: VEDOLIZUMAB 300 MG in NS 250 ML IV ONE (11:31)
[2024-01-06 12:05] VITALS: BP 144/99; O2SAT 100
== END 2024-01-06 12:15 ==
LOC: M INFU 10:37
PROVIDERS: ATTEND Internal Medicine Gastroenterology
DX: K51.919 Ulcerative colitis, unspecified with unspecified complications (principal); Z88.1 Allergy status to other antibiotic agents; Z88.8 Allergy status to other drugs, medicaments and biological substances; Z91.030 Bee allergy status

== ENCOUNTER 2024-03-01 13:14 | Outpatient (CLI) | payer OTHER ==
[~2024-03-01] VITALS: Ht 170.2 cm; Wt 137.0 kg
[~2024-03-01 13:14] MED LIST changes: -VEDOLIZUMAB 300 MG in NS 250 ML IV ONE
[2024-03-01 13:30] VITALS: BP 125/80; O2SAT 97
[2024-03-01] MEDS: VEDOLIZUMAB 300 MG in NS 250 ML IV ONE (14:03)
[2024-03-01 14:41] VITALS: BP 119/74; O2SAT 97
== END 2024-03-01 14:45 ==
LOC: M INFU 13:14
PROVIDERS: ATTEND Internal Medicine Gastroenterology
DX: K51.90 Ulcerative colitis, unspecified, without complications (principal); Z88.1 Allergy status to other antibiotic agents; Z88.8 Allergy status to other drugs, medicaments and biological substances; Z91.030 Bee allergy status; Z91.011 Allergy to milk products

== ENCOUNTER → 2024-03-19 | Outpatient (CLI) | payer OTHER | LOC: M LAB 11:30 | PROVIDERS: ATTEND Orthopaedic Surgery | DX: Z47.1 Aftercare following joint replacement surgery (principal) ==

== ENCOUNTER → 2024-04-30 | Outpatient (CLI) | payer OTHER ==
[~2024-04-30] MED LIST changes: +LIDOCAINE 1% MDV 20ML VIAL As Ordered ONE
[2024-04-30 15:11] LABS: SOURCE, BODY FLUID LT HIP; SYNOVIAL FLUID COLOR RED (COLORLESS)
== END ==
LOC: M RAD 13:10
PROVIDERS: ATTEND Orthopaedic Surgery
DX: M25.552 Pain in left hip (principal); Z96.642 Presence of left artificial hip joint

== ENCOUNTER 2024-05-07 13:20 | Outpatient (CLI) | payer OTHER ==
[~2024-05-07] VITALS: Ht 172.7 cm; Wt 146.0 kg
[2024-05-07 13:20] VITALS: BP 152/83; O2SAT 96
[~2024-05-07 13:20] MED LIST changes: -LIDOCAINE 1% MDV 20ML VIAL As Ordered ONE
[2024-05-07] MEDS: VEDOLIZUMAB 300 MG in NS 250 ML IV ONE (14:14)
[2024-05-07 14:50] VITALS: BP 144/88; O2SAT 95
== END 2024-05-07 14:50 ==
LOC: M INFU 13:20
PROVIDERS: ATTEND Internal Medicine Gastroenterology
DX: Z88.1 Allergy status to other antibiotic agents (principal); Z88.8 Allergy status to other drugs, medicaments and biological substances; Z91.030 Bee allergy status

== ENCOUNTER → 2024-06-10 | Outpatient (CLI) | payer OTHER ==
[2024-06-10 16:33] LABS: HEMOGLOBIN 14.2 g/dl (12.0-15.5); MEAN CORPUSCULAR HEMOGLOBIN 25.8 pg (27.0-33.0); MEAN CORPUSCULAR HGB CONC 31.6 g/dl (32.0-36.5); MEAN CORPUSCULAR VOLUME 81.8 fl (80.0-96.0); PLATELET COUNT, AUTOMATED 248 10^3/uL (150-450); WHITE BLOOD COUNT 7.8 10^3/uL (4.0-10.0)
== END ==
LOC: M RAD 15:08
PROVIDERS: ATTEND Physician Assistant Medical
DX: J40 Bronchitis, not specified as acute or chronic (principal)

== ENCOUNTER → 2024-06-10 | Outpatient (REF) | payer OTHER ==
[~2024-06-10] MED LIST changes: +VANC125C13 PO; -VANC125C3 PO
== END ==
LOC: M SFHCPLAZ 09:32
PROVIDERS: ATTEND Physician Assistant Medical
DX: J39.9 Disease of upper respiratory tract, unspecified (principal)

== ENCOUNTER → 2024-07-20 | Outpatient (CLI) | payer OTHER ==
[~2024-07-20] VITALS: Ht 172.7 cm; Wt 142.2 kg
[~2024-07-20] MED LIST changes: +VEDOLIZUMAB 300 MG in NS 250 ML IV ONE
[2024-07-20 15:00] VITALS: BP 141/92; O2SAT 98
[2024-07-20] MEDS: VEDOLIZUMAB 300 MG in NS 250 ML IV ONE (15:58)
[2024-07-20 16:35] VITALS: BP 168/84; O2SAT 95
== END ==
LOC: M INFU 14:33
PROVIDERS: ATTEND Internal Medicine Gastroenterology
DX: K51.90 Ulcerative colitis, unspecified, without complications (principal); Z88.1 Allergy status to other antibiotic agents; Z88.8 Allergy status to other drugs, medicaments and biological substances; Z91.030 Bee allergy status
CPT/HCPCS: 96365; J3380

== ENCOUNTER 2024-09-03 15:08 | Outpatient (CLI) | payer OTHER ==
[~2024-09-03] VITALS: Ht 172.7 cm; Wt 144.5 kg
[~2024-09-03 15:08] MED LIST changes: -BUPR-597 PO; +BUPR-766 PO
[2024-09-03 15:30] VITALS: BP 130/79; O2SAT 96
[2024-09-03] MEDS: VEDOLIZUMAB 300 MG in NS 250 ML IV ONE (15:59)
[2024-09-03 16:40] VITALS: BP 137/69; O2SAT 92
== END 2024-09-03 16:40 ==
LOC: M INFU 15:08
PROVIDERS: ATTEND Internal Medicine Gastroenterology
DX: K51.90 Ulcerative colitis, unspecified, without complications (principal); Z88.1 Allergy status to other antibiotic agents; Z88.8 Allergy status to other drugs, medicaments and biological substances; Z91.030 Bee allergy status; Z91.011 Allergy to milk products
CPT/HCPCS: 96365; J3380

== ENCOUNTER 2024-12-26 16:23 | Emergency (ER) | payer MEDICAID, SELFPAY ==
[~2024-12-26] VITALS: Ht 167.6 cm; Wt 133.0 kg
[~2024-12-26 16:23] MED LIST changes: -VEDOLIZUMAB 300 MG in NS 250 ML IV ONE
[2024-12-26 16:27] VITALS: TEMP 98.8
[2024-12-26 19:12] LABS: BASO # 0.1 10^3/uL (0.0-0.2); BASO % 1.0 % (0.0-1.0); EOS # 0.2 10^3/uL (0.0-0.5); EOS % 2.6 % (0.0-3.0); LYMPH # 1.9 10^3/uL (1.5-5.0); LYMPH % 22.9 % (24.0-44.0); MONO # 0.9 10^3/uL (0.0-0.8); MONO % 10.5 % (2.0-8.0); NEUTROPHILS # 5.2 10^3/uL (1.5-8.5); NEUTROPHILS % 62.0 % (36.0-66.0); PLATELET COUNT, AUTOMATED 243 10^3/uL (150-450)
[2024-12-26 19:41] LABS: ALT/SGPT 41 U/L (7.0-40); AST/SGOT 44 U/L (<34); CALCIUM LEVEL 8.9 MG/DL (8.5-10.1); CARBON DIOXIDE LEVEL 23 MMOL/L (20-31); CHLORIDE LEVEL 104 MMOL/L (98-107); CREATININE FOR GFR 0.63 MG/DL (0.55-1.30); GLOMERULAR FILTRATION RATE > 90.0 (>51); POTASSIUM SERUM 3.8 MMOL/L (3.5-5.1); SODIUM LEVEL 139 MMOL/L (136-145)
[2024-12-26] MEDS ORDERED: ISOVUE-370 76% 100 ML VIAL As Ordered ONE (20:40)
[2024-12-26] MEDS: NS (Normal Saline) 0.9% 1,000 ML IV ONE (20:53)
[2024-12-26] MEDS: ONDANSETRON 4MG/2ML VIAL IV ONE (20:54)
[2024-12-26] MEDS: KETOROLAC 30 MG/ML 1 ML VIAL IV ONE (20:54)
[2024-12-27] MEDS ORDERED: PRED20TA PO (00:41)
[2024-12-27 02:11] LABS: KETONE, URINE AUTO RFX TRACE mg/dL (NEGATIVE); LEUKOCYTE ESTERASE UR AUTO RFX NEGATIVE (NEGATIVE); MUCUS, URINE RFX SMALL (NEGATIVE); NITRITE, URINE AUTO RFX NEGATIVE (NEGATIVE); RBC, URINE AUTO RFX 6 /HPF (0-3); SQUAM EPITHELIAL CELL UR AURFX 5 /HPF (0-6); WBC, URINE AUTO RFX 2 /HPF (0-3)
[2024-12-27 02:16] VITALS: O2SAT 96
[2024-12-27] MEDS: predniSONE 20 MG TAB PO ONE (02:18)
[2024-12-27 02:21] VITALS: BP 136/79
== END 2024-12-27 02:33 | disposition home or self-care (01) ==
LOC: M ED 16:23
DX: K50.90 Crohn's disease, unspecified, without complications (principal); R16.0 Hepatomegaly, not elsewhere classified; I10 Essential (primary) hypertension; Z88.1 Allergy status to other antibiotic agents; Z88.8 Allergy status to other drugs, medicaments and biological substances; Z91.011 Allergy to milk products; Z91.030 Bee allergy status; Z91.018 Allergy to other foods; Z79.1 Long term (current) use of non-steroidal anti-inflammatories (NSAID); Z79.51 Long term (current) use of inhaled steroids; Z79.52 Long term (current) use of systemic steroids; Z79.899 Other long term (current) drug therapy
CPT/HCPCS: 74177; 80048; 80076; 81001; 83690; 85025; 96361; 96374; 96375; 99285; J1885; J2405; J2919; J7512; Q9967

== ENCOUNTER → 2024-12-31 | Outpatient (CLI) | payer MEDICAID | LOC: M LAB 13:34 | PROVIDERS: ATTEND Internal Medicine Gastroenterology | DX: K51.00 Ulcerative (chronic) pancolitis without complications (principal) ==

== ENCOUNTER → 2025-01-05 | Outpatient (CLI) | payer MEDICAID ==
[2025-01-05 11:07] LABS: PLATELET COUNT, AUTOMATED 277 10^3/uL (150-450)
[2025-01-05 11:18] LABS: ESTIMATED AVERAGE GLUCOSE 349.0 MG/DL (60-110)
[2025-01-05 11:42] LABS: FREE T4 1.3 NG/DL (0.89-1.76); VITAMIN B12 LEVEL 866.0 PG/ML (211-911)
== END ==
LOC: M PLALAB 08:42
PROVIDERS: ATTEND Family Medicine
DX: K50.919 Crohn's disease, unspecified, with unspecified complications (principal); M79.2 Neuralgia and neuritis, unspecified

== ENCOUNTER → 2025-01-05 | Outpatient (REF) | payer MEDICAID, OTHER | LOC: M SFHCPLAZ 08:32 | PROVIDERS: ATTEND Family Medicine | DX: K50.919 Crohn's disease, unspecified, with unspecified complications (principal); M79.2 Neuralgia and neuritis, unspecified ==

== ENCOUNTER → 2025-01-11 | Outpatient (CLI) | payer MEDICAID | LOC: M WHC 14:13 | PROVIDERS: ATTEND Family Medicine | DX: Z12.31 Encounter for screening mammogram for malignant neoplasm of breast (principal); M81.0 Age-related osteoporosis without current pathological fracture ==

== ENCOUNTER 2025-02-10 12:33 | Outpatient (CLI) | payer OTHER ==
[~2025-02-10] VITALS: Ht 172.7 cm; Wt 125.0 kg
[2025-02-10 12:30] VITALS: BP 119/73; O2SAT 98
[2025-02-10] MEDS: VEDOLIZUMAB 300 MG in NS 250 ML IV ONE (12:52)
[2025-02-10 13:29] VITALS: BP 112/56; O2SAT 98
== END 2025-02-10 13:29 ==
LOC: M INFU 12:33
PROVIDERS: ATTEND Internal Medicine Gastroenterology
DX: K51.00 Ulcerative (chronic) pancolitis without complications (principal); Z88.1 Allergy status to other antibiotic agents; Z88.8 Allergy status to other drugs, medicaments and biological substances; Z91.030 Bee allergy status; Z91.018 Allergy to other foods
CPT/HCPCS: 96365; J3380

== ENCOUNTER 2025-02-24 12:22 | Outpatient (CLI) | payer OTHER ==
[~2025-02-24] VITALS: Ht 172.7 cm; Wt 125.0 kg
[2025-02-24] MEDS ORDERED: VEDOLIZUMAB 300 MG in NS 250 ML IV ONE (13:00)
[2025-02-24 13:05] VITALS: BP 121/69; O2SAT 98
[2025-02-24] MEDS: VEDOLIZUMAB 300 MG in NS 250 ML IV ONE (13:58)
[2025-02-24 14:37] VITALS: BP 117/75; O2SAT 97
== END 2025-02-24 14:38 ==
LOC: M INFU 12:22
PROVIDERS: ATTEND Internal Medicine Gastroenterology
DX: K51.00 Ulcerative (chronic) pancolitis without complications (principal)
CPT/HCPCS: 96365; J3380

== ENCOUNTER 2025-03-28 11:25 | Outpatient (CLI) | payer OTHER ==
[~2025-03-28] VITALS: Ht 167.6 cm; Wt 138.6 kg
[2025-03-28 11:40] VITALS: BP 126/81; O2SAT 100
[2025-03-28] MEDS ORDERED: METF500T13 PO (12:04)
[2025-03-28] MEDS ORDERED: LEXA1TAB2 PO (12:04)
[2025-03-28] MEDS: VEDOLIZUMAB 300 MG in NS 250 ML IV ONE (12:30)
[2025-03-28 13:15] VITALS: BP 110/61; O2SAT 94
== END 2025-03-28 13:15 | disposition home or self-care (01) ==
LOC: M INFU 11:25
PROVIDERS: ATTEND Internal Medicine Gastroenterology
DX: K51.00 Ulcerative (chronic) pancolitis without complications (principal); Z88.1 Allergy status to other antibiotic agents; Z88.8 Allergy status to other drugs, medicaments and biological substances; Z91.030 Bee allergy status; Z91.018 Allergy to other foods
CPT/HCPCS: 96365; J3380

== ENCOUNTER → 2025-04-01 | Outpatient (REF) | payer OTHER ==
[~2025-04-01] MED LIST changes: +LEXA1TAB2 PO; +METF500T13 PO
== END ==
LOC: M SFHCPLAZ 09:16
PROVIDERS: ATTEND Family Medicine
DX: E11.65 Type 2 diabetes mellitus with hyperglycemia (principal)

== ENCOUNTER → 2025-04-01 | Outpatient (CLI) | payer OTHER ==
[2025-04-01 15:06] LABS: ALT/SGPT 21 U/L (7.0-40); AST/SGOT 23 U/L (<34); CALCIUM LEVEL 9.2 MG/DL (8.5-10.1); CARBON DIOXIDE LEVEL 26 MMOL/L (20-31); CHLORIDE LEVEL 104 MMOL/L (98-107); CHOLESTEROL LEVEL 159 MG/DL (<200); CHOLESTEROL RISK RATIO 4.29 (<5); CREATININE FOR GFR 0.65 MG/DL (0.55-1.30); GLOMERULAR FILTRATION RATE > 90.0 (>51); LDL CHOLESTEROL 97.6 MG/DL (<100); NON-HDL-C 122.0 MG/DL; POTASSIUM SERUM 4.5 MMOL/L (3.5-5.1); SODIUM LEVEL 139 MMOL/L (136-145); TRIGLYCERIDES LEVEL 122 MG/DL (<150)
[2025-04-01 15:29] LABS: CREATININE, URINE 147.1 MG/DL; MALB URINE SIEMENS 10.0 MG/L; MAU/CREAT RATIO 6.7 MCG/MG (0.0-30.0)
[2025-04-01 15:37] LABS: ESTIMATED AVERAGE GLUCOSE 200.0 MG/DL (60-110)
== END ==
LOC: M PLALAB 10:15
PROVIDERS: ATTEND Family Medicine
DX: E11.65 Type 2 diabetes mellitus with hyperglycemia (principal); R29.898 Other symptoms and signs involving the musculoskeletal system